=== PATIENT | female | born 1990 | race African-American/Black ===

== ENCOUNTER 2020-05-30 09:06 | Emergency (ER) | payer SELFPAY ==
--- NOTE | ~2020-05-30 | XR_ITS ---
EXAMINATION: XR chest 1V portable DATE: 05/30/2020 10:34 INDICATION: Fever. TECHNIQUE: A single frontal view of the chest was obtained. COMPARISON: None. FINDINGS: The chest demonstrates clear lungs without pneumonia, pleural effusion, or pneumothorax. Th e heart size is normal. There is an old healed fracture of left sixth rib. IMPRESSION: 1. No acute cardiopulmonary disease. Reviewed, dictated and finalized at location A.
[2020-05-30 09:21] VITALS: BP 102/71; PULSE 81; RESP 18; TEMP 37.2; O2SAT 100
[2020-05-30 09:28] VITALS: PULSE 81; RESP 18; O2SAT 100
--- NOTE | 2020-05-30 09:32 | PC.NURSE ---
Pt. care transferred to Lucian Hernandez pt.'s primary RN
[2020-05-30 10:12] VITALS: O2SAT 99
--- NOTE | 2020-05-30 11:15 | ED.FEVER ---
HPI - Fever General Chief Complaint: Fever <Zafar Suazo PA-C - Last Filed: 05/30/20 11:21> Stated Complaint: FEVERS, LACK OF TASTE <Zafar Suazo PA-C - Last Filed: 05/30/20 11:21> Time Seen by Provider: 05/30/20 10:03 <Zafar Suazo PA-C - Last Filed: 05/30/20 11:21> Source: patient <CHITO Sotelo Last Filed: 05/30/20 11:21> Mode of arrival: ambulatory <CHITO Sotelo Last Filed: 05/30/20 11:21> Limitations: no limitations <Zafar Suazo PA-C - Last Filed: 05/30/20 11:21> History of Present Illness HPI Narrative: Patient is a 30-year-old female who presents for evaluation of upper respiratory symptoms for the last several days noting that she was around an individual that had COVID. Patient notes dry cough subjective fever denies dyspnea vomiting diarrhea has tried [id number] medications with minimal improvement <Zafar Suazo PA-C - Last Filed: 05/30/20 11:21> Related Data Allergies/Adverse Reactions: Allergies Allergy/AdvReac Type Severity Reaction Status Date / Time No Known Allergies Allergy Unknown Verified 05/30/20 09:08 <Zafar Suazo PA-C - Last Filed: 05/30/20 11:21> Review of Systems Review of Systems: All systems reviewed & are unremarkable except as noted in HPI and below <Zafar Suazo PA-C - Last Filed: 05/30/20 11:21> [facility] Social History Social History: Social History (Updated 05/30/20 @ 11:17 by Zafar Suazo PA-C) Smoking status: Never smoker <Zafar Suazo PA-C - Last Filed: 05/30/20 11:21> Exam Narrative: Exam Narrative: GENERAL: Well-appearing, well-nourished, and in no acute distress. HEAD: Normocephalic, atraumatic. EYES: PERRLA and EOMI. ENT: Nares clear, no rhinorrhea or epistaxis. Mucous membranes moist. Oropharynx without tonsillar hypertrophy exudate or other lesions. NECK: Supple. No adenopathy or masses. CHEST: Clear to auscultation. No respiratory distress. No wheezes rales or rhonchi HEART: Regular rate and rhythm. No murmur heard. Normal peripheral pulses. ABDOMEN: Soft, nontender, nondistended EXTREMITIES: Normal range of motion. No edema. SKIN: Warm, dry, no rash. NEURO: No focal deficits. Alert and oriented x3. Cranial nerves II through XII grossly intact PSYCH: Normal mood and affect. <Zafar Suazo PA-C - Last Filed: 05/30/20 11:21> Course [employer]/PA Physician Supervision Patient aware of chest x-ray findings in the room in no distress no hypoxemia will be treated symptomatically advised to follow with primary care to discuss COVID testing to self quarantine until she has had this discussion will be given a work note to be off work until her primary care doctor has released her back. Patient given reasons to return <Zafar Suazo PA-C - Last Filed: 05/30/20 11:21> Vital Signs Vital signs: Vital Signs Temperature 98.9 F 05/30/20 09:21 Pulse Rate 81 05/30/20 09:21 Respiratory Rate 18 05/30/20 09:21 Blood Pressure 102/71 05/30/20 09:21 Pulse Oximetry 100 05/30/20 09:21 Temperature 98.9 F 05/30/20 09:21 Pulse Rate 62 05/30/20 11:19 Respiratory Rate 18 05/30/20 11:19 Blood Pressure 104/60 05/30/20 11:19 Pulse Oximetry 99 05/30/20 11:19 <Zafar Suazo PA-C - Last Filed: 05/30/20 11:21> Vital Signs Temperature 98.9 F 05/30/20 09:21 Pulse Rate 81 05/30/20 09:21 Respiratory Rate 18 05/30/20 09:21 Blood Pressure 102/71 05/30/20 09:21 Pulse Oximetry 100 05/30/20 09:21 Temperature 98.9 F 05/30/20 09:21 Pulse Rate 62 05/30/20 11:19 Respiratory Rate 18 05/30/20 11:19 Blood Pressure 104/60 05/30/20 11:19 Pulse Oximetry 99 05/30/20 11:19 <Zarina Beckham MD - Last Filed: 07/27/20 11:36> MDM - Fever MDM Narrative Medical decision making narrative: Patient with viral syndrome in the room in no distress. Advised to follow with primary care antoni
[2020-05-30 11:19] VITALS: BP 104/60; PULSE 62; RESP 18; O2SAT 99
== END 2020-05-30 11:34 | disposition home or self-care (01) ==
PROVIDERS: Emergency Provider Emergency Medicine
DX: B34.9 Viral infection, unspecified (principal); Z20.828 Contact with and (suspected) exposure to other viral communicable diseases
CPT/HCPCS: 71045; 99283

== ENCOUNTER 2022-06-24 19:14 | Emergency (ER) | payer BC, SELFPAY ==
[2022-06-24 19:32] VITALS: PULSE 70; RESP 20; TEMP 36.9; O2SAT 100
--- NOTE | 2022-06-24 19:46 | ED.ABDPAIN ---
HPI - Abdominal Pain General Chief Complaint: Abdominal Pain Stated Complaint: Abd pain, vomiting Time Seen by Provider: 06/24/22 19:43 History of Present Illness HPI narrative: 32-year-old female in severe abdominal distress presents to the emergency room for evaluation of abdominal pain that has been present for 3 days. Patient admits to feeling constipated, the pain is greater when she is bearing down. Patient admits to being flatulent. History of x1 . Denies fevers. Is associated with nausea and vomiting. Related Data Allergies Allergy/AdvReac Type Severity Reaction Status Date / Time No Known Allergies Allergy Unknown Verified 05/30/20 09:08 Review of Systems Review of Systems: CONSTITUTIONAL: Denies fever, chills, or sweats. EYES: Denies visual changes, redness, or discharge. ENT: Denies rhinorrhea, congestion, sore throat, or otalgia. CARDIOVASCULAR: Denies chest pain, palpitations, or edema. RESPIRATORY: Denies cough or dyspnea. GASTROINTESTINAL: Reports abdominal pain GENITOURINARY: Denies dysuria or hematuria. SKIN: Denies rash or itching. MUSCULOSKELETAL: Denies back pain, joint pain, or myalgia. NEUROLOGIC: Denies headache, numbness, dizziness, or weakness. PSYCHIATRIC: Denies anxiety or depression. [facility] Social History Social History (Updated 05/30/20 @ 11:17 by Zafar Suazo, PAClauC) Smoking status: Never smoker Exam Narrative: GENERAL: Well-appearing, well-nourished, no physical limitations, severe distress. HEAD: Normocephalic, atraumatic. EYES: Conjunctivae normal, PERRLA and EOMI. CHEST: Clear to auscultation. No respiratory distress. No wheezes rales or rhonchi. No tenderness. HEART: Regular rate and rhythm. No murmur heard. Normal peripheral pulses. ABDOMEN: Soft, diffuse tenderness, nondistended, normal active bowel sounds. BACK: No CVA tenderness EXTREMITIES: Normal range of motion. No edema. No clubbing or cyanosis SKIN: Warm, dry, no rash. No noted wounds NEURO: No focal deficits. Alert and oriented x3. MAEW. CN's II-XI intact bilaterally, normal gait PSYCH: Cooperative. Histrionic and tearful. Course Vital Signs Vital signs: Vital Signs Temperature 36.9 C 06/24/22 19:32 Pulse Rate 70 06/24/22 19:32 Respiratory Rate 20 06/24/22 19:32 Pulse Oximetry 100 06/24/22 19:32 Oxygen Delivery Room Air 06/24/22 19:32 Temperature 36.9 C 06/24/22 19:32 Pulse Rate 62 06/24/22 21:53 Respiratory Rate 14 06/24/22 21:53 Blood Pressure 105/61 06/24/22 21:53 Pulse Oximetry 100 06/24/22 21:53 Oxygen Delivery Room Air 06/24/22 19:32 MDM - Abdominal Pain MDM Narrative Medical decision making narrative: 32-year-old female presented with 3 days of lower abdominal pain associated with constipation. Patient was found to be . hCG showed that she is between 6 and 7 weeks. CBC was unremarkable, showed no signs of infection. Urinalysis showed no signs of UTI CMP is largely unremarkable. Patient was given a liter of fluid and some nausea medicine, and stated symptoms were resolving. Lab Data Result diagrams: 06/24/22 20:23 06/24/22 20:23 Labs: Lab Results 06/24/22 06/24/22 06/24/22 Range/Units 20:23 20:23 20:23 WBC 10.0 (4.5-10.0) K/mm3 RBC 5.37 (4.2-5.4) M/mm3 Hgb 12.2 (12.0-15.0) g/dL Hct 38.9 (37.0-47.0) % MCV 72.4 L (80-100) fl MCH 22.7 L (26-34) pg MCHC 31.4 L (32-36) g/dl RDW 14.8 H (11.5-14.5) % Plt Count 258 (150-375) k/mm3 MPV 10.5 H (7.4-10.4) fl Immature Gran % (Auto) 0.2 (0-0.5) % Neut % (Auto) 82.5 H (45.5-73.1) % Lymph % (Auto) 11.3 L (18.3-44.2) % [place] % (Auto) 5.6 (2.6-8.5) % Eos % (Auto) 0.1 (0-4.4) % Baso % (Auto) 0.3 (0.2-1.2) % Lymph # (Auto) 1.13 (0.9-3.2) K/mm3 [place] # (Auto) 0.6 (0.1-0.6) K/mm3 Eos # (Auto) 0.0 (0-0.3) K/mm3 Baso # (Auto) 0.0 (0.0-0.1) K/mm3 Abs Immat Gran (
[2022-06-24] MEDS: SODIUM CHLORIDE 0.9% IV 1,000 ML 999 ML IV CONT (20:22)
[2022-06-24] MEDS: ONDANSETRON INJ 4 MG/2 ML VIAL IV PUSH (20:22)
[2022-06-24 20:28] VITALS: BP 121/68; PULSE 52; RESP 16; O2SAT 100
[2022-06-24 20:35] LABS: Appearance Urine Slightly Cloudy (Clear); Basophils Percent Auto 0.3 % (0.2-1.2); Bilirubin Urine 1+ (Negative); Eosinophils Percent Auto 0.1 % (0-4.4); Glucose Urine UA Negative (Negative); Hematocrit 38.9 % (37.0-47.0); Hemoglobin 12.2 g/dL (12.0-15.0); Immature Granulocyte Absolute 0.02 K/mm3 (0.00-0.031); Immature Granulocyte Percent A 0.2 % (0-0.5); Immature Platelet Fraction Pct 2.4 % (0.9-11.2); Ketones Urine 4+ mg/dL (Negative); Leukocyte Esterase Ur Trace LEU/UL (Negative); Lymphocytes Absolute Auto 1.13 K/mm3 (0.9-3.2); Lymphocytes Percent Auto 11.3 % (18.3-44.2); Mean Corpuscular HGB Conc 31.4 g/dl (32-36); Mean Corpuscular Hemoglobin 22.7 pg (26-34); Mean Corpuscular Volume 72.4 fl (80-100); Mean Platelet Volume 10.5 fl (7.4-10.4); Monocytes Absolute Auto 0.6 K/mm3 (0.1-0.6); Monocytes Percent Auto 5.6 % (2.6-8.5); Neutrophils Absolute Auto 8.2 K/mm3 (1.3-6.7); Neutrophils Percent Auto 82.5 % (45.5-73.1); Nitrate Urine Negative (Negative); Platelet Count Result 258 k/mm3 (150-375); Protein Urine 1+ mg/dL (Negative); Red Blood Count 5.37 M/mm3 (4.2-5.4); Red Cell Distribution Width 14.8 % (11.5-14.5); Specific Grav Ur >= 1.030 (1.001-1.035); Urobilinogen Urine 0.2 mg/dL (<2.0)
[2022-06-24 20:41] LABS: Add Urine Microscopic? YES; Bacteria Urine 2+ /hpf; Blood Urine Trace (Negative); Color Urine Dark Yellow (Yellow); Mucus Urine Moderate /lpf; Squamous Epithelial Cell Urine Few /hpf (Few)
[2022-06-24 20:44] LABS: Potassium 3.7 mmol/L (3.4-5.0)
[2022-06-24 20:45] LABS: Alanine Aminotransferase 14 U/L (6-35); Albumin Level 4.4 g/dL (3.5-5.1); Alkaline Phosphatase 87 U/L (38-126); Anion Gap 12 mmol/L (8-16); Aspartate Amino Transferase 26 U/L (14-36); Bilirubin,Total 1.1 mg/dL (0.2-1.3); Blood Urea Nitrogen 9 mg/dL (7-17); Calcium 9.4 mg/dL (8.4-10.2); Carbon Dioxide 20 mmol/L (22-30); Chloride 102 mmol/L (98-107); Estimated CRCL calculation 96 ml/min; Estimated Glomerular Filt Rate > 60; Glucose 91 mg/dL (65-110); Lipase 64 U/L (23-300); Sodium 134 mmol/L (137-145)
[2022-06-24 20:49] LABS: Platelet Estimate Adequate (Adequate)
[2022-06-24 20:50] LABS: Anisocytosis 1+ (NORMAL); Ovalocytes 1+ (NORMAL)
[2022-06-24 21:53] VITALS: BP 105/61; PULSE 62; RESP 14; O2SAT 100
== END 2022-06-24 22:20 | disposition home or self-care (01) ==
PROVIDERS: Emergency Provider Nurse Practitioner Family
DX: R10.9 Unspecified abdominal pain (principal); O26.90 Pregnancy related conditions, unspecified, unspecified trimester
CPT/HCPCS: 36415; 80053; 81001; 81025; 83690; 84702; 85025; 85055; 87086; 87088; 96361; 96374; 99284; J2405; J7030

== ENCOUNTER 2022-06-25 10:48 | Inpatient (IN) | payer BC, SELFPAY ==
[2022-06-25] VITALS (8 sets, daily range): BP systolic 85–130; BP diastolic 55–71; PULSE 57–72; RESP 18–20; TEMP 37.1–37.3; O2SAT 100; BMI 22.6
--- NOTE | ~2022-06-25 | XR_ITS ---
EXAMINATION: XR abdomen/kub 1V DATE: 06/27/2022 13:39 INDICATION: Abdominal pain. TECHNIQUE: A supine view of the abdomen on 2 radiographs was obtained. COMPARISON: None. FINDINGS: There are no dilated loops of bowel. There is a paucity of gas in the bowel. IMPRESSION: 1. Normal bowel gas pattern. Reviewed, dictated and finalized at location A.
--- NOTE | ~2022-06-25 | US_ITS ---
US right upper quadrant INDICATION: Imtiaz pain. Nausea and vomiting. PROCEDURE: Realtime right upper abdominal ultrasound. COMPARISON: No prior studies for comparison. FINDINGS: The pancreas is normal without focal mass or pancreatic ductal dilation. Liver echotexture is normal without focal mass or intrahepatic biliary dilatation. There is normal directional flow i n the portal vein. The gallbladder is normal without stones, gallbladder wall thickening or pericholecystic fluid. Comm on bile duct measures 2 mm. No sonographic Eller's sign. IMPRESSION: 1: Normal limited abdominal ultrasound. Reviewed, dictated and finalized at location A.
--- NOTE | ~2022-06-25 | US_ITS ---
EXAMINATION: US OB <=14 wk fetus w TV DATE: 06/25/2022 12:31 INDICATION: Abdominal pain during first trimester TECHNIQUE: Real-time pelvic transabdominal ultrasound was performed. COMPARISON: None. FINDINGS: The uterus measures 8.8 x 5.2 x 5.9 cm. There is an intrauterine gestational sac. A yolk s ac is identified. The pole is not definitely seen. The mean sac diameter measures 1.3 cm, which correlates with an estimated gestational age of 6 weeks and 1 day(s) (+/-) 4 day(s). The right ovary measures 2.1 x 0.9 x 1.5 cm. The left ovary measures 3.1 x 1.7 x 2.3 cm. There is nor mal vascular flow in the ovaries. There is no free fluid in the pelvis. IMPRESSION: 1. Intrauterine gestational sac with an estimated gestational age of 6 weeks and 1 day(s) (+/-) 4 day (s) and an estimated delivery date of 02/17/2023 based on mean sac diameter. pole not visualized which could be due to early . Reviewed, dictated and finalized at location B. IMPRESSION: 1. Intrauterine gestational sac with an estimated gestational age of 6 weeks an d 1 day(s) (+/-) 4 day(s) and an estimated delivery date of 02/17/2023 based on mean sac diameter. pole not visualized which could be due to early pregna ncy.
[2022-06-25] MEDS: SODIUM CHLORIDE 0.9% IV 1,000 ML 999 ML IV CONT ×2 (11:45→13:22)
[2022-06-25] MEDS: FAMOTIDINE 20 MG/2 ML VIAL IV PUSH ×2 (11:46→21:56)
[2022-06-25 11:50] LABS: Basophils Percent Auto 0.1 % (0.2-1.2); Eosinophils Percent Auto 0.1 % (0-4.4); Hematocrit 38.6 % (37.0-47.0); Hemoglobin 12.1 g/dL (12.0-15.0); Immature Granulocyte Absolute 0.03 K/mm3 (0.00-0.031); Immature Granulocyte Percent A 0.3 % (0-0.5); Lymphocytes Absolute Auto 0.99 K/mm3 (0.9-3.2); Mean Corpuscular HGB Conc 31.3 g/dl (32-36); Mean Corpuscular Hemoglobin 23.1 pg (26-34); Mean Corpuscular Volume 73.7 fl (80-100); Mean Platelet Volume 9.9 fl (7.4-10.4); Monocytes Absolute Auto 0.4 K/mm3 (0.1-0.6); Monocytes Percent Auto 3.8 % (2.6-8.5); Neutrophils Absolute Auto 9.5 K/mm3 (1.3-6.7); Neutrophils Percent Auto 86.7 % (45.5-73.1); Platelet Count Result 265 k/mm3 (150-375); Red Blood Count 5.24 M/mm3 (4.2-5.4); Red Cell Distribution Width 14.8 % (11.5-14.5)
[2022-06-25] MEDS: PROMETHAZINE HCL 25 MG/ML AMPUL 12.5 MG IV PUSH ×2 (11:59→18:08)
[2022-06-25 12:00] LABS: Alanine Aminotransferase 20 U/L (6-35); Albumin Level 4.7 g/dL (3.5-5.1); Alkaline Phosphatase 86 U/L (38-126); Anion Gap 16 mmol/L (8-16); Anisocytosis 1+ (NORMAL); Aspartate Amino Transferase 32 U/L (14-36); Bilirubin,Total 1.3 mg/dL (0.2-1.3); Blood Urea Nitrogen 8 mg/dL (7-17); Calcium 8.6 mg/dL (8.4-10.2); Carbon Dioxide 17 mmol/L (22-30); Chloride 103 mmol/L (98-107); Estimated CRCL calculation 96 ml/min; Estimated Glomerular Filt Rate > 60; Glucose 129 mg/dL (65-110); Lipase 69 U/L (23-300); Ovalocytes 1+ (NORMAL); Platelet Estimate Adequate (Adequate); Potassium 3.1 mmol/L (3.4-5.0); Sodium 136 mmol/L (137-145)
[2022-06-25 12:01] LABS: Alanine Aminotransferase 22 U/L (6-35); Albumin Level 4.6 g/dL (3.5-5.1); Alkaline Phosphatase 84 U/L (38-126); Anion Gap 16 mmol/L (8-16); Aspartate Amino Transferase 30 U/L (14-36); Bilirubin,Total 1.3 mg/dL (0.2-1.3); Blood Urea Nitrogen 8 mg/dL (7-17); Calcium 8.8 mg/dL (8.4-10.2); Carbon Dioxide 15 mmol/L (22-30); Chloride 104 mmol/L (98-107); Estimated CRCL calculation 96 ml/min; Estimated Glomerular Filt Rate > 60; Glucose 129 mg/dL (65-110); Magnesium 1.7 mg/dL (1.6-2.3); Potassium 3.1 mmol/L (3.4-5.0); Sodium 135 mmol/L (137-145)
[2022-06-25] MEDS: ONDANSETRON INJ 4 MG/2 ML VIAL IV PUSH ×2 (13:24→21:44)
--- NOTE | 2022-06-25 13:25 | ED.GENADULT ---
HPI - General Adult General Chief complaint: Nausea/Vomiting/Diarrhea Stated complaint: vomiting x days Time Seen by Provider: 06/25/22 11:09 Source: RN notes reviewed History of Present Illness HPI narrative: Patient presents emergency department from home for nausea and vomiting. Patient states symptoms began approximately 1 day ago states she has been having numerous episodes of nausea and vomiting has been unable to keep anything down patient states has been associate with abdominal pain that is described as cramping and diffuse throughout the abdomen she denies any fevers or chills chest pain or shortness of breath patient was seen in the emergency department last night was found to be and was prescribed Zofran and discharged at that time which she states that has not been helping. Patient does believe she questionably had a syncopal episode while vomiting earlier today states she had felt lightheaded and had to lay down on the ground unsure if she fully passed out or not she denies any chest pain or shortness of Related Data Allergies Allergy/AdvReac Type Severity Reaction Status Date / Time No Known Allergies Allergy Unknown Verified 05/30/20 09:08 Review of Systems Review of Systems: Gen.: Denies fevers or chills ENT: Denies congestion Respiratory: Denies shortness of breath or cough CV: Denies chest pain or palpitations GI: See HPI reports Musculoskeletal: Denies back pain or muscle pain Neuro: Denies numbness, tingling, weakness or focal weakness Skin: Denies rash Except as documented, all other systems reviewed and negative [facility] Past Medical History Medical History (Updated 06/25/22 @ 14:31 by Nato Fisher DO) Patient denies significant medical history Social History Social History Smoking status: Never smoker Exam Narrative: APPEARANCE: Mild distress in bed patient with dry heaves EYES: EOMI HEENT: Normocephalic, atraumatic, OMM RESPIRATORY: No respiratory distress Clear to auscultation bilaterally with no rhonchi wheezing or rales. CARDIOVASCULAR: Regular rate and rhythm without murmurs rubs or gallops. ABDOMINAL: Soft, nondistended diffusely tender to palpation no rebound or guard MUSCULOSKELETAl: Moves all extremities. No clubbing, cyanosis or edema. NEURO: Awake and alert. Following commands, speech normal, no focal deficits SKIN:: Warm, dry. No rashes lesions or abrasions PSYCHIATRIC: Normal affect/mood, Course Course Emergency Course: Discussed Dr. Paris presentation work-up agrees with admission at this time Discussed with patient and family results of workup and diagnosis. Discussed need for admission. Patient and family understand and agree to current treatment plan Vital Signs Vital signs: Vital Signs Temperature 98.9 F 06/25/22 10:51 Pulse Rate 66 06/25/22 10:51 Respiratory Rate 18 06/25/22 10:51 Blood Pressure 130/63 06/25/22 10:51 Pulse Oximetry 100 06/25/22 10:51 Oxygen Delivery Room Air 06/25/22 10:51 Temperature 98.9 F 06/25/22 10:51 Pulse Rate 66 06/25/22 10:51 Respiratory Rate 18 06/25/22 10:51 Blood Pressure 130/63 06/25/22 10:51 Pulse Oximetry 100 06/25/22 10:51 Oxygen Delivery Room Air 06/25/22 10:51 Medical Decision Making Vital Signs Vital Signs: Vital Signs Temperature 98.9 F 06/25/22 10:51 Pulse Rate 66 06/25/22 10:51 Respiratory Rate 18 06/25/22 10:51 Blood Pressure 130/63 06/25/22 10:51 Pulse Oximetry 100 06/25/22 10:51 Oxygen Delivery Room Air 06/25/22 10:51 Temperature 98.9 F 06/25/22 10:51 Pulse Rate 66 06/25/22 10:51 Respiratory Rate 18 06/25/22 10:51 Blood Pressure 130/63 06/25/22 10:51 Pulse Oximetry 100 06/25/22 10:51 Oxygen Delivery Room Air 06/25/22 10:51 Lab Data Result diagrams: 06/25/22 11:38 06/25/22 11:38 Labs: Lab Results 06/25/22
--- NOTE | 2022-06-25 13:26 | ECG_ITS ---
Measurements Intervals Burns Rate: 66 P: 78 IL: 147 QRS: 51 QRSD: 92 T: 47 QT: 413 QTc: 433 Interpretive Statements SINUS RHYTHM INCOMPLETE RIGHT BUNDLE BRANCH BLOCK Electronically Signed On 06-26-2022 12:39:10 CDT by Paul Lopes M.D.
[2022-06-25] MEDS: POTASSIUM CHLORIDE INJ 40 MEQ in SODIUM CHLORIDE 0.9% IV 500 ML 130 MEQ IVPB (13:31)
[2022-06-25 14:19] LABS: Appearance Urine Clear (Clear); Bilirubin Urine Negative (Negative); Blood Urine Negative (Negative); Color Urine Yellow (Yellow); Glucose Urine UA Negative (Negative); Ketones Urine 4+ mg/dL (Negative); Leukocyte Esterase Ur Negative LEU/UL (Negative); Nitrate Urine Negative (Negative); Protein Urine Negative (Negative); Specific Grav Ur 1.025 (1.001-1.035); Urobilinogen Urine 0.2 mg/dL (<2.0); pH Urine 5.5 (5.0-9.0)
[2022-06-25 14:29] LABS: Add Urine Microscopic? YES; Bacteria Urine Trace /hpf; Mucus Urine Rare /lpf; RBC Urine 0-2 /hpf (0-2); Squamous Epithelial Cell Urine Rare /hpf (Few)
[2022-06-25] MEDS: fentaNYL CITRATE INJ (*CRX) 100 MCG/2 ML VIAL 50 MCG IV PUSH ×2 (15:42→22:56)
--- NOTE | 2022-06-25 16:14 | OBADM ---
This patient, Belem Fink, admitted to the OB room OB Post 112 for observation. Patient/family oriented to hospital policies and general routines including ID bracelet, bed and alarms, visiting hours, pain management, procedures, bathroom and other care routines, personal items, smoking policy, room service/diet, and visiting hours. Patient/Family are encouraged to report perceived risks to care and to ask questions if they do not understand what they are told or what they should do.
--- NOTE | 2022-06-25 18:36 | PC.NURSE ---
Report given to Renu WEBB
[2022-06-25 18:56] LABS: Amphetamine Screen Urine Negative (Negative); Barbiturate Screen Urine Negative (Negative); Benzodiazepines Screen Urine Negative (Negative); Cannabinoid Screen Urine Positive (Negative); Cocaine Screen Urine Negative (Negative); Methadone Screen Urine Negative (Negative); Opiate Screen Urine Negative (Negative); Phencyclidine Screen Urine Negative (Negative)
[2022-06-25] MEDS: diphenhydrAMINE HCl INJ 50 MG/ML VIAL 25 MG IV PUSH (19:07)
--- NOTE | 2022-06-25 20:26 | PC.NURSE ---
called Chau Long CNM reported pt called out vomiting blood. RN at bedside observed pink blood contained mucus noted in emesis bag. continue to observe.
[2022-06-26] MEDS: LACTATED RINGERS 1,000 ML 200 ML IV CONT (00:17)
[2022-06-26] MEDS: PROMETHAZINE HCL 25 MG/ML AMPUL 12.5 MG IV PUSH ×4 (00:21→22:09)
[2022-06-26] MEDS: LACTATED RINGERS 1,000 ML 125 ML IV CONT (05:38)
[2022-06-26] MEDS: ONDANSETRON INJ 4 MG/2 ML VIAL IV PUSH ×3 (05:43→20:40)
--- NOTE | 2022-06-26 07:03 | PM.IMHP ---
H&P: HPI History of Present Illness Date/Time: 06/26/22 07:03 Chief Complaint: nausea and vomiting. Pt discovered she was 2 days ago. Pt has received IV fluids and antiemetics overnight. Pt given potassium IV. pt currently resting comfortably and able to tolerate ice chips PMFSH Past Medical History Medical History (Updated 06/25/22 @ 14:31 by Nato Fisher DO) Patient denies significant medical history Social History Social History Smoking status: Never smoker Meds Home Medications and Allergies Allergies Allergy/AdvReac Type Severity Reaction Status Date / Time No Known Allergies Allergy Unknown Verified 06/25/22 15:20 Vital Signs Vital Signs - 24 hr 06/25/22 10:51 06/25/22 14:56 06/25/22 14:56 Temperature 37.2 C Pulse Rate 66 67 67 Respiratory Rate 18 20 20 Blood Pressure 130/63 120/56 L 120/56 L Pulse Oximetry 100 100 100 Oxygen Delivery Room Air 06/25/22 15:42 06/25/22 15:45 06/25/22 16:01 Temperature Pulse Rate 58 L 57 L 63 Respiratory Rate Blood Pressure 85/62 L 120/71 113/57 L Pulse Oximetry Oxygen Delivery 06/25/22 22:50 06/25/22 22:52 06/25/22 16:10 Temperature 37.3 C 37.1 C Pulse Rate 72 Respiratory Rate Blood Pressure 120/55 L Pulse Oximetry Oxygen Delivery Exam Const: General: healthy appearing, comfortable and other (pt sleeping) H&P: Results Labs Labs: Short CBC 06/25/22 06/25/22 Range/Units 11:38 11:38 WBC 11.0 H Cancelled (4.5-10.0) K/mm3 Hgb 12.1 Cancelled (12.0-15.0) g/dL Hct 38.6 Cancelled (37.0-47.0) % Plt Count 265 Cancelled (150-375) k/mm3 BMP 06/25/22 06/25/22 11:38 11:38 Sodium 136 L 135 L Potassium 3.1 L 3.1 L Chloride 103 104 Carbon Dioxide 17 L 15 L BUN 8 8 Creatinine 0.60 L 0.60 L Glucose 129 H 129 H Calcium 8.6 8.8 Liver Function 06/25/22 06/25/22 Range/Units 11:38 11:38 Total Bilirubin 1.3 1.3 (0.2-1.3) mg/dL AST 32 30 (14-36) U/L ALT 20 22 (6-35) U/L Alkaline Phosphatase 86 84 (38-126) U/L Albumin 4.7 4.6 (3.5-5.1) g/dL Urine 06/25/22 Range/Units 14:06 Urine Color Yellow (Yellow) Urine Appearance Clear (Clear) Urine pH 5.5 (5.0-9.0) Ur Specific [place] 1.025 (1.001-1.035) Urine Protein Negative (Negative) mg/dL Urine Glucose (UA) Negative (Negative) mg/dL Assessment and Plan Assessment and plan (1) Hyperemesis gravidarum: Code(s): O21.0 - Mild hyperemesis gravidarum Status: Acute Plan at 6 weeks gestation with nausea and vomiting repeat CMP, encourage IV fluids plan d/c home and appt with ob provider
--- NOTE | 2022-06-26 07:13 | PM.OBTRLD ---
OB - Triage/Final Diagnosis Visit Information Date of evaluation: 06/26/22 Reason for evaluation: other (nausea and vomiting) Comments/Additional reasons for admission: I have assessed the risk for this patient, Belem Fink, and determined that she would benefit from observation care. Evaluation Laboratory results: Laboratory Tests 06/25/22 06/25/22 06/25/22 11:38 11:38 11:38 WBC 11.0 H Cancelled RBC 5.24 Cancelled Hgb 12.1 Cancelled Hct 38.6 Cancelled MCV 73.7 L Cancelled MCH 23.1 L Cancelled MCHC 31.3 L Cancelled RDW 14.8 H Cancelled Plt Count 265 Cancelled MPV 9.9 Cancelled Immature Gran % (Auto) 0.3 Cancelled Neut % (Auto) 86.7 H Cancelled Lymph % (Auto) 9.0 L Cancelled [place] % (Auto) 3.8 Cancelled Eos % (Auto) 0.1 Cancelled Baso % (Auto) 0.1 L Cancelled Lymph # (Auto) 0.99 Cancelled [place] # (Auto) 0.4 Cancelled Eos # (Auto) 0.0 Cancelled Baso # (Auto) 0.0 Cancelled Abs Immat Gran (auto) 0.03 Cancelled Absolute Neuts (auto) 9.5 H Cancelled Absolute Nucleated RBC 0.0 Cancelled Nucleated RBC % 0.0 Cancelled Platelet Estimate Adequate % Immature Plt Fraction Cancelled Anisocytosis 1+ Ovalocytes 1+ Sodium 136 L Potassium 3.1 L Chloride 103 Carbon Dioxide 17 L Anion Gap 16 BUN 8 Creatinine 0.60 L Estim Creat Clear Calc 96 Estimated GFR > 60 Glucose 129 H Calcium 8.6 Magnesium Total Bilirubin 1.3 AST 32 ALT 20 Alkaline Phosphatase 86 Total Protein 8.0 Albumin 4.7 Lipase 69 Beta HCG, Quant Urine Color Urine Appearance Urine pH Ur Specific [place] Urine Protein Urine Glucose (UA) Urine Ketones Ur Blood (Man) Urine Nitrate Urine Bilirubin Urine Urobilinogen Leukocyte Esterase Rfl Urine RBC Urine WBC Ur Squamous Epith Cells Urine Bacteria Urine Mucus Urine Opiates Screen Urine Methadone Screen Ur Barbiturates Screen Ur Phencyclidine Scrn Ur Amphetamine Screen U Benzodiazepines Scrn Urine Cocaine Screen U Cannabinoids Screen 06/25/22 06/25/22 06/25/22 11:38 14:06 14:08 WBC RBC Hgb Hct MCV MCH MCHC RDW Plt Count MPV Immature Gran % (Auto) Neut % (Auto) Lymph % (Auto) [place] % (Auto) Eos % (Auto) Baso % (Auto) Lymph # (Auto) [place] # (Auto) Eos # (Auto) Baso # (Auto) Abs Immat Gran (auto) Absolute Neuts (auto) Absolute Nucleated RBC Nucleated RBC % Platelet Estimate % Immature Plt Fraction Anisocytosis Ovalocytes Sodium 135 L Potassium 3.1 L Chloride 104 Carbon Dioxide 15 L Anion Gap 16 BUN 8 Creatinine 0.60 L Estim Creat Clear Calc 96 Estimated GFR > 60 Glucose 129 H Calcium 8.8 Magnesium 1.7 Total Bilirubin 1.3 AST 30 ALT 22 Alkaline Phosphatase 84 Total Protein 8.0 Albumin 4.6 Lipase Beta HCG, Quant 01641.00 Urine Color Yellow Urine Appearance Clear Urine pH 5.5 Ur Specific [place] 1.025 Urine Protein Negative Urine Glucose (UA) Negative Urine Ketones 4+ H Ur Blood (Man) Negative Urine Nitrate Negative Urine Bilirubin Negative Urine Urobilinogen 0.2 Leukocyte Esterase Rfl Negative Urine RBC 0-2 Urine WBC 4-6 H Ur Squamous Epith Cells Rare Urine Bacteria Trace Urine Mucus Rare Urine Opiates Screen Negative Urine Methadone Screen Negative Ur Barbiturates Screen Negative Ur Phencyclidine Scrn Negative Ur Amphetamine Screen Negative U Benzodiazepines Scrn Negative Urine Cocaine Screen Negative U Cannabinoids Screen Positive A Vital signs: Vital Signs - 24 hr 06/25/22 10:51 06/25/22 14:56 06/25/22 14:56 Temperature 37.2 C Pulse Rate 66 67 67 Respiratory Rate 18 20 20 Blood Pressure 130/63 120/56 L 120/56 L Pulse Oxi
[2022-06-26] MEDS: FAMOTIDINE 20 MG/2 ML VIAL IV PUSH ×2 (09:16→21:00)
[2022-06-26 09:23] VITALS: TEMP 37.6
[2022-06-26 09:24] VITALS: BP 111/59; PULSE 73
[2022-06-26 10:06] LABS: Alanine Aminotransferase 11 U/L (6-35); Albumin Level 3.2 g/dL (3.5-5.1); Alkaline Phosphatase 55 U/L (38-126); Anion Gap 6 mmol/L (8-16); Aspartate Amino Transferase 19 U/L (14-36); Bilirubin,Total 0.9 mg/dL (0.2-1.3); Blood Urea Nitrogen 5 mg/dL (7-17); Calcium 7.9 mg/dL (8.4-10.2); Carbon Dioxide 23 mmol/L (22-30); Chloride 106 mmol/L (98-107); Estimated CRCL calculation 96 ml/min; Estimated Glomerular Filt Rate > 60; Glucose 89 mg/dL (65-110); Potassium 3.5 mmol/L (3.4-5.0); Sodium 135 mmol/L (137-145)
[2022-06-26] MEDS: diphenhydrAMINE HCl INJ 50 MG/ML VIAL 25 MG IV PUSH ×2 (11:31→21:19)
[2022-06-26 11:34] VITALS: BP 125/67; PULSE 79; TEMP 37.4
[2022-06-26] MEDS: NITROFURANTOIN MONOHYD MACROCR 100 MG CAP PO (13:52)
[2022-06-26] MEDS: DEXTROSE 5%/0.45% SOD CHL 1,000 ML 200 ML IV CONT ×2 (16:01→21:22)
[2022-06-26 16:05] VITALS: BP 111/59; PULSE 59
[2022-06-26 16:06] VITALS: TEMP 37.7
[2022-06-26 20:41] VITALS: BP 112/74; PULSE 69
--- NOTE | 2022-06-26 21:29 | PC.NURSE ---
Pt complains of abdominal pain and restless. called Dr. Bender reported pt's complains. order received for Dicyclomine IM
[2022-06-26] MEDS: DICYCLOMINE HCL INJ 20 MG/2 ML VIAL IM (21:48)
[2022-06-27] MEDS: ONDANSETRON INJ 4 MG/2 ML VIAL IV PUSH (00:40)
[2022-06-27] MEDS: PROMETHAZINE HCL 25 MG/ML AMPUL 12.5 MG IV PUSH ×3 (02:00→14:13)
[2022-06-27] MEDS: diphenhydrAMINE HCl INJ 50 MG/ML VIAL 25 MG IV PUSH ×3 (03:40→14:12)
[2022-06-27] MEDS: DEXTROSE 5%/0.45% SOD CHL 1,000 ML 200 ML IV CONT (03:42)
--- NOTE | 2022-06-27 04:20 | PC.NURSE ---
called Dr. Bender notified pt has been vomiting all night regardless available medications. Also reported complains of abdominal pain and has not slept all night. Order received to increase zofran dose to 8mg Q6 hours. No plan for additional pain medication at this time
[2022-06-27] MEDS: ONDANSETRON INJ 4 MG/2 ML VIAL 8 MG IV PUSH ×2 (04:40→11:22)
[2022-06-27 04:43] LABS: Hematocrit 34.7 % (37.0-47.0); Hemoglobin 11.2 g/dL (12.0-15.0); Mean Corpuscular HGB Conc 32.3 g/dl (32-36); Mean Corpuscular Hemoglobin 23.1 pg (26-34); Mean Corpuscular Volume 71.5 fl (80-100); Mean Platelet Volume 10.5 fl (7.4-10.4); Platelet Count Result 258 k/mm3 (150-375); Red Blood Count 4.85 M/mm3 (4.2-5.4); Red Cell Distribution Width 14.3 % (11.5-14.5); White Blood Count 10.6 K/mm3 (4.5-10.0)
[2022-06-27 04:56] LABS: Alanine Aminotransferase 18 U/L (6-35); Albumin Level 3.9 g/dL (3.5-5.1); Alkaline Phosphatase 68 U/L (38-126); Anion Gap 11 mmol/L (8-16); Aspartate Amino Transferase 40 U/L (14-36); Bilirubin,Total 0.6 mg/dL (0.2-1.3); Blood Urea Nitrogen 2 mg/dL (7-17); Calcium 8.2 mg/dL (8.4-10.2); Carbon Dioxide 22 mmol/L (22-30); Chloride 99 mmol/L (98-107); Estimated CRCL calculation 96 ml/min; Estimated Glomerular Filt Rate > 60; Glucose 134 mg/dL (65-110); Potassium 2.8 mmol/L (3.4-5.0); Sodium 132 mmol/L (137-145)
[2022-06-27 05:00] VITALS: BP 105/68; PULSE 85; RESP 22; TEMP 37.4
[2022-06-27] MEDS: POTASSIUM CHLORIDE INJ 40 MEQ in SODIUM CHLORIDE 0.9% IV 500 ML 130 MEQ IV CONT (06:41)
[2022-06-27 06:59] VITALS: BP 126/74; PULSE 70
[2022-06-27 07:00] VITALS: RESP 16; TEMP 37
--- NOTE | 2022-06-27 07:12 | PM.OBPNVD ---
OB - PN: Subj Subjective Date/time seen: 06/27/22 07:12 Interval history: HD 2 for intractable N/V, presumed hyperemesis. UOP great, replacing K, NPO, multiple antiemetics, pepcid, and still constant vomiting. Pt reports constant generalized abdominal pain. tried dicyclomine IM, no relief. pt requesting stronger pain meds. OB - PN: Obj Data Labs CBC & Chem 7: 06/27/22 04:37 06/27/22 04:37 Labs: Laboratory Results - last 24 hr 06/26/22 06/27/22 06/27/22 09:18 04:37 04:37 WBC 10.6 H RBC 4.85 Hgb 11.2 L Hct 34.7 L MCV 71.5 L MCH 23.1 L MCHC 32.3 RDW 14.3 Plt Count 258 MPV 10.5 H Sodium 135 L 132 L Potassium 3.5 2.8 L* Chloride 106 99 Carbon Dioxide 23 22 Anion Gap 6 L 11 BUN 5 L 2 L Creatinine 0.60 L 0.60 L Estim Creat Clear Calc 96 96 Estimated GFR > 60 > 60 Glucose 89 134 H Calcium 7.9 L 8.2 L Total Bilirubin 0.9 0.6 AST 19 40 H ALT 11 18 Alkaline Phosphatase 55 68 Total Protein 6.0 L 7.0 Albumin 3.2 L 3.9 OB - PN A/P Assessment and Plan (1) Hyperemesis gravidarum: Code(s): O21.0 - Mild hyperemesis gravidarum Status: Acute (2) Hypokalemia: Code(s): E87.6 - Hypokalemia Status: Acute (3) Abdominal pain, generalized: Code(s): R10.84 - Generalized abdominal pain Status: Acute Plan intractable N/V/abdominal pain- GI consult, RUQ US. failed dicyclomine. on multiple antiemetics and pepcid. npo. consider NG tube. consider transfer to medical floor. consider narcotic seeking behavior, though true N/V with electrolyte abnormalities. replacing K. repeat lytes at 1600. TSH then also. Time Spent With Patient Time: Total time spent is greater than 50% in coordination of care (as documented) at patient's floor/unit and/or counseling patient: Exam Narrative: Pt moaning in bed writhing, naked not actively vomiting appears uncomfortable, but does stop when pain medications mentioned abdomen soft, moderately tender, no rebound or guarding
--- NOTE | 2022-06-27 07:37 | PC.NURSE ---
0700--Dr. Bender at bedside to assess pt and discuss plan of care.
--- NOTE | 2022-06-27 07:42 | PC.NURSE ---
0721--Dr. Barrett informed of consult. Will see pt today.
--- NOTE | 2022-06-27 08:00 | PC.NURSE ---
0850--To US per wheelchair.
[2022-06-27] MEDS: FAMOTIDINE 20 MG/2 ML VIAL IV PUSH (09:06)
--- NOTE | 2022-06-27 09:28 | PC.NURSE ---
0840--Pt reports some relief with ice bag to abdomen.
[2022-06-27 10:38] VITALS: TEMP 37
--- NOTE | 2022-06-27 11:11 | PC.NURSE ---
1015--D. Counts from IV access at bedside to restart IV.
--- NOTE | 2022-06-27 11:16 | WPDGICN ---
Assessment and Plan Assessment and plan (1) Hyperemesis gravidarum: Code(s): O21.0 - Mild hyperemesis gravidarum Status: Acute Assessment and Plan: she is on Zofran and promethazine for that (2) Abdominal pain, generalized: Code(s): R10.84 - Generalized abdominal pain Status: Acute Assessment and Plan: She is mostly tender in the lower abdomen. I suspect that she has some sort of colitis. I will check a lactic acid level to make sure that she does not have ischemic bowel issues but that would be rare at her age. because of her , we are limited in terms of imaging studies. Perhaps ultrasound of the pelvis would be beneficial as most of her pain is infraumbilical and suprapubic (3) Marijuana user: Code(s): F12.90 - Cannabis use, unspecified, uncomplicated Status: Acute Assessment and Plan: her symptoms could be due to cannabinoid syndrome, although I think her pain is too localized to the lower abdomen. nevertheless, nausea, vomiting, and abdominal pain are the typical features of regular marijuana use (4) Change in bowel habits: Code(s): R19.4 - Change in bowel habit Status: Acute Assessment and Plan: Her stools have been very soft and narrow this week. She has had frequent bowel movements but has not had blood in her stools. I will send stools for fecal leukocytes as well as for cultures. GI Consult Note Consult date/time: 06/27/22 11:16 HPI: Belem Fink is a 32 year old female who recently if found out that she was 8 weeks . She states that began having nausea and vomiting about 3 days ago. The night before last she developed pain in her lower abdomen. It is constant and cramping. Her stools have been softer but she has not seen blood. She has not had a fever. She had not been traveling. She uses occasional anti-inflammatory medications such as Aleve or ibuprofen. She was smoking marijuana almost every day but stopped when she became ill 2 days ago. She has no history of prior gastrointestinal problems were recalls that 1 time she was given a suppository for bowel problems. She is not aware of a family history of inflammatory bowel disease or other digestive problems. [facility] Past Medical History Medical History (Updated 06/27/22 @ 11:21 by Ryne Barrett MD) Patient denies significant medical history Social History Social History Smoking status: Never smoker Meds Home Medications and Allergies Allergies Allergy/AdvReac Type Severity Reaction Status Date / Time No Known Allergies Allergy Unknown Verified 06/25/22 15:20 Vital Signs Vital Signs - 24 hr 06/26/22 11:34 06/26/22 16:05 06/26/22 20:41 Temperature Pulse Rate 79 59 L 69 Respiratory Rate Blood Pressure 125/67 111/59 L 112/74 Oxygen Delivery 06/27/22 06:59 06/26/22 11:34 06/26/22 16:06 Temperature 37.4 C 37.7 C H Pulse Rate 70 Respiratory Rate Blood Pressure 126/74 Oxygen Delivery 06/26/22 21:00 06/27/22 05:00 06/27/22 07:00 Temperature 37.4 C 37.0 C Pulse Rate 85 Respiratory Rate 22 H 16 Blood Pressure 105/68 Oxygen Delivery Room Air 06/27/22 10:38 Temperature 37.0 C Pulse Rate Respiratory Rate Blood Pressure Oxygen Delivery Results Labs CBC & Chem 7: 06/27/22 04:37 06/27/22 04:37 Labs: Short CBC 06/27/22 Range/Units 04:37 WBC 10.6 H (4.5-10.0) K/mm3 Hgb 11.2 L (12.0-15.0) g/dL Hct 34.7 L (37.0-47.0) % Plt Count 258 (150-375) k/mm3 BMP 06/27/22 04:37 Sodium 132 L Potassium 2.8 L* Chloride 99 Carbon Dioxide 22 BUN 2 L Creatinine 0.60 L Glucose 134 H Calcium 8.2 L Liver Function 06/27/22 Range/Units 04:37 Total Bilirubin 0.6 (0.2-1.3) mg/dL AST 40 H (14-36) U/L ALT 18 (6-35) U/L Alkaline Phosphatase 68 (38-126) U/L
[2022-06-27] MEDS: MORPHINE SULFATE (*CRX) 2 MG/ML INJ 4 MG IV PUSH (13:21)
[2022-06-27 14:35] LABS: Lactic Acid Reflex 0.8 mmol/L (0.7-2.0)
[2022-06-27 15:00] VITALS: TEMP 37.2
--- NOTE | 2022-06-27 15:14 | PC.NURSE ---
1233--Dr. Bender given report on pt-intermittent vomiting continues, pain level 10/10. Morphine ordered.
--- NOTE | 2022-06-27 15:16 | PC.NURSE ---
1330--To Xray per wheelchair.
--- NOTE | 2022-06-27 15:48 | PC.NURSE ---
1545--Update given to Dr. Bender.
[2022-06-27 16:17] LABS: Basophils Percent Auto 0.1 % (0.2-1.2); Hematocrit 34.4 % (37.0-47.0); Hemoglobin 11.2 g/dL (12.0-15.0); Immature Granulocyte Absolute 0.05 K/mm3 (0.00-0.031); Immature Granulocyte Percent A 0.3 % (0-0.5); Lymphocytes Percent Auto 10.4 % (18.3-44.2); Mean Corpuscular HGB Conc 32.6 g/dl (32-36); Mean Corpuscular Hemoglobin 23.2 pg (26-34); Mean Corpuscular Volume 71.4 fl (80-100); Mean Platelet Volume 9.2 fl (7.4-10.4); Monocytes Absolute Auto 0.9 K/mm3 (0.1-0.6); Monocytes Percent Auto 6.4 % (2.6-8.5); Neutrophils Absolute Auto 11.9 K/mm3 (1.3-6.7); Neutrophils Percent Auto 82.8 % (45.5-73.1); Platelet Count Result 236 k/mm3 (150-375); Red Blood Count 4.82 M/mm3 (4.2-5.4); Red Cell Distribution Width 14.5 % (11.5-14.5); White Blood Count 14.4 K/mm3 (4.5-10.0)
[2022-06-27 16:25] LABS: Alanine Aminotransferase 16 U/L (6-35); Albumin Level 3.8 g/dL (3.5-5.1); Alkaline Phosphatase 57 U/L (38-126); Anion Gap 8 mmol/L (8-16); Aspartate Amino Transferase 38 U/L (14-36); Bilirubin,Total 0.6 mg/dL (0.2-1.3); Blood Urea Nitrogen 2 mg/dL (7-17); Carbon Dioxide 24 mmol/L (22-30); Chloride 104 mmol/L (98-107); Estimated CRCL calculation 96 ml/min; Estimated Glomerular Filt Rate > 60; Glucose 121 mg/dL (65-110); Potassium 3.3 mmol/L (3.4-5.0); Sodium 136 mmol/L (137-145)
[2022-06-27 16:47] LABS: Free T4 Free Thyroxine 1.84 ng/mL (0.78-2.19)
[2022-06-27 16:56] LABS: Thyroid Stimulating Hormone < 0.015 uIU/mL (0.465-4.680)
--- NOTE | 2022-06-27 18:20 | PC.NURSE ---
Patient transferred fro OB to room 342 for further medical management. I spoke with Dr Paris via telephone and a consultation to hospitalist on duty was entered. Dr Paris states order for NG placement by Dr Bender can wait until patient is seen by hospitalist.
[2022-06-27 20:10] VITALS: BP 108/66; PULSE 65; RESP 18; TEMP 37; O2SAT 100
[2022-06-28] MEDS: FAMOTIDINE 20 MG/2 ML VIAL IV PUSH ×2 (02:27→19:59)
[2022-06-28] MEDS: ONDANSETRON INJ 4 MG/2 ML VIAL 8 MG IV PUSH ×2 (04:40→19:58)
[2022-06-28] MEDS: LORazepam INJ (*CRX) 2 MG/ML VIAL 1 MG IV PUSH (05:32)
[2022-06-28 05:47] VITALS: BP 139/72; PULSE 75; RESP 20; TEMP 36.2; O2SAT 100
--- NOTE | 2022-06-28 07:29 | PM.OBPNVD ---
OB - PN: Subj Subjective Date/time seen: 06/28/22 07:29 patient was sleeping, when woken she started moaning and crying, no recent vomiting, takes off her clothes entirely and rolls around naked in the bed, repetitively asks for IV pain medication. Reports abdominal pain lower mid abdomen. Interval history: HD 2 for intractable N/V, presumed hyperemesis. UOP great, replacing K, NPO, multiple antiemetics, pepcid, and still constant vomiting. Pt reports constant generalized abdominal pain. tried dicyclomine IM, no relief. pt requesting stronger pain meds. OB - PN: Obj Data Labs CBC & Chem 7: 06/27/22 16:00 06/27/22 16:00 Labs: Laboratory Results - last 24 hr 06/27/22 06/27/22 06/27/22 13:19 13:19 16:00 WBC 14.4 H RBC 4.82 Hgb 11.2 L Hct 34.4 L MCV 71.4 L MCH 23.2 L MCHC 32.6 RDW 14.5 Plt Count 236 MPV 9.2 Immature Gran % (Auto) 0.3 Neut % (Auto) 82.8 H Lymph % (Auto) 10.4 L Vance % (Auto) 6.4 Eos % (Auto) 0.0 Baso % (Auto) 0.1 L Lymph # (Auto) 1.50 Vance # (Auto) 0.9 H Eos # (Auto) 0.0 Baso # (Auto) 0.0 Abs Immat Gran (auto) 0.05 H Absolute Neuts (auto) 11.9 H Absolute Nucleated RBC 0.0 Nucleated RBC % 0.0 Sodium Potassium Chloride Carbon Dioxide Anion Gap BUN Creatinine Estim Creat Clear Calc Estimated GFR Glucose Lactic Acid 0.8 Calcium Total Bilirubin AST ALT Alkaline Phosphatase Total Protein Albumin Procalcitonin 0.0 TSH Free T4 06/27/22 06/27/22 16:00 16:00 WBC RBC Hgb Hct MCV MCH MCHC RDW Plt Count MPV Immature Gran % (Auto) Neut % (Auto) Lymph % (Auto) Vance % (Auto) Eos % (Auto) Baso % (Auto) Lymph # (Auto) Vance # (Auto) Eos # (Auto) Baso # (Auto) Abs Immat Gran (auto) Absolute Neuts (auto) Absolute Nucleated RBC Nucleated RBC % Sodium 136 L Potassium 3.3 L Chloride 104 Carbon Dioxide 24 Anion Gap 8 BUN 2 L Creatinine 0.60 L Estim Creat Clear Calc 96 Estimated GFR > 60 Glucose 121 H Lactic Acid Calcium 8.0 L Total Bilirubin 0.6 AST 38 H ALT 16 Alkaline Phosphatase 57 Total Protein 7.0 Albumin 3.8 Procalcitonin TSH < 0.015 L Free T4 1.84 Imaging Radiologist's impression: Impressions Upper Quadrant Ultrasound 06/27/22 08:29 IMPRESSION: 1: Normal limited abdominal ultrasound. Abdomen X-Ray 06/27/22 13:40 IMPRESSION: 1. Normal bowel gas pattern. OB - PN A/P Assessment and Plan (1) Abdominal pain, generalized: Code(s): R10.84 - Generalized abdominal pain Status: Acute (2) Hyperemesis gravidarum: Code(s): O21.0 - Mild hyperemesis gravidarum Status: Acute Plan 32-year-old multiparous female about 6 weeks gestation with intractable nausea and vomiting. No vomiting the last few hours, had considered in G-tube, medicine service is now managing her abdominal pain and vomiting, all hyperemesis treatments failed, patient was sleeping, when woken she started moaning and crying, no recent vomiting, takes off her clothes entirely and rolls around naked in the bed, repetitively asks for IV pain medication. Reports abdominal pain lower mid abdomen. To obtain psych consult, to obtain social work therapist consult Time Spent With Patient Time: Total time spent is greater than 50% in coordination of care (as documented) at patient's floor/unit and/or counseling patient: Review of Systems Review of Systems: All systems reviewed & are unremarkable except as noted in HPI and below Constitutional: Constitutional: Denies chills, Denies fatigue, Denies fever(s) and Denies weakness Eyes: Eyes: Denies blurry vision, Denies change in vision, Denies loss of peripheral vision, Denies loss of vision, Denies other visual disturbances and Denies eye pain ENT: De
--- NOTE | 2022-06-28 07:45 | WPDGIPROGNO ---
Progress Note: A&P Assessment and Plan (1) Hyperemesis gravidarum: Code(s): O21.0 - Mild hyperemesis gravidarum Status: Acute Assessment and Plan: she is on Zofran and promethazine for that (2) Abdominal pain, generalized: Code(s): R10.84 - Generalized abdominal pain Status: Acute Assessment and Plan: She is mostly tender in the lower abdomen. I suspect that she has some sort of colitis. I will check a lactic acid level to make sure that she does not have ischemic bowel issues but that would be rare at her age. because of her , we are limited in terms of imaging studies. Perhaps ultrasound of the pelvis would be beneficial as most of her pain is infraumbilical and suprapubic 06/28/2022 there is no change in physical examination. She has not had any stools to send for cultures. Normal procalcitonin rules out infectious etiology. Plain film of the abdomen was unremarkable. I am stump test to what could cause this symptom complex terms of a gastrointestinal disorder. Could ectopic cause symptoms like this? (3) Marijuana user: Code(s): F12.90 - Cannabis use, unspecified, uncomplicated Status: Acute Assessment and Plan: her symptoms could be due to cannabinoid syndrome, although I think her pain is too localized to the lower abdomen. nevertheless, nausea, vomiting, and abdominal pain are the typical features of regular marijuana use. 06/28/2022 she states that it has been 5 days since she used pot. She denies using anything else that would explain her symptoms in terms of of withdrawal pattern. (4) Change in bowel habits: Code(s): R19.4 - Change in bowel habit Status: Acute Assessment and Plan: Her stools have been very soft and narrow this week. She has had frequent bowel movements but has not had blood in her stools. I will send stools for fecal leukocytes as well as for cultures. 06/28/2022 no bowel movements today. Stool studies have been ordered are still not collected. (5) Leukocytosis: Code(s): D72.829 - Elevated white blood cell count, unspecified Status: Acute Assessment and Plan: white blood count remains elevated. procalcitonin level of 0 rules out bacterial infection. Subjective Date/time seen: 06/28/22 07:45 patient was sleeping when I entered the room but after waking her up she was writhing in pain. She states that she is still nauseated. She has not vomited during the night but did receive several more doses of Zofran. Exam Const: General: in distress ( writhing in bed and taking off her sheets after I woke her) severe and tired appearing GI: Inspection: normal to inspection GI Palp: Yes abdominal tenderness ( primarily lower half), Yes Soft to palpation and Yes No hepatosplenomegaly present Auscultation: normal bowel sounds Objective Data Vital Signs Vital Signs: Vital Signs - 24 hr 06/27/22 10:38 06/27/22 15:00 06/27/22 20:10 Temperature 37.0 C 37.2 C 37.0 C Pulse Rate 65 Respiratory Rate 18 Blood Pressure 108/66 Pulse Oximetry 100 06/28/22 05:47 Temperature 36.2 C L Pulse Rate 75 Respiratory Rate 20 Blood Pressure 139/72 Pulse Oximetry 100 Intake/Output Intake/Output: Intake & Output 06/25/22 06/26/22 06/27/22 06/28/22 23:59 23:59 23:59 23:59 Intake Total 2100 3300 3624 150 Output Total 1850 2800 Balance 2100 1450 824 150 Meds/Results Medications: Active Medications Generic Name Dose Route Start Last Admin Trade Name Yvanq PRN Reason Stop Dose Admin Acetaminophen 1,000 mg 06/25/22 18:51 Acetaminophen 500 Mg Tablet PO Q6H PRN Pain RATED 1-3 or headache Diphenhydramine HCl 25 mg 06/25/22 18:53 06/27/22 14:12 Diphenhydramine Hcl Inj 50 Mg/Ml Vial IV PUSH 25 mg Q4H PRN Administration Itching Famotidine 20 mg 06/25/22 21:00 06/28/22 02:27 Famotidine 20 Mg/2 Ml Vial IV PUSH 20 mg Q1
[2022-06-28 08:38] LABS: Basophils Percent Auto 0.2 % (0.2-1.2); Eosinophils Percent Auto 0.1 % (0-4.4); Hematocrit 35.9 % (37.0-47.0); Hemoglobin 11.4 g/dL (12.0-15.0); Immature Granulocyte Absolute 0.05 K/mm3 (0.00-0.031); Immature Granulocyte Percent A 0.4 % (0-0.5); Immature Platelet Fraction Pct 10.5 % (0.9-11.2); Lymphocytes Absolute Auto 1.36 K/mm3 (0.9-3.2); Mean Corpuscular HGB Conc 31.8 g/dl (32-36); Mean Corpuscular Volume 72.5 fl (80-100); Monocytes Absolute Auto 0.6 K/mm3 (0.1-0.6); Neutrophils Absolute Auto 10.3 K/mm3 (1.3-6.7); Neutrophils Percent Auto 83.3 % (45.5-73.1); Platelet Count Result 159 k/mm3 (150-375); Red Blood Count 4.95 M/mm3 (4.2-5.4); Red Cell Distribution Width 14.6 % (11.5-14.5); White Blood Count 12.3 K/mm3 (4.5-10.0)
[2022-06-28 08:47] LABS: Alanine Aminotransferase 16 U/L (6-35); Albumin Level 3.9 g/dL (3.5-5.1); Alkaline Phosphatase 65 U/L (38-126); Anion Gap 12 mmol/L (8-16); Aspartate Amino Transferase 28 U/L (14-36); Bilirubin,Total 0.6 mg/dL (0.2-1.3); Blood Urea Nitrogen 3 mg/dL (7-17); Calcium 8.3 mg/dL (8.4-10.2); Carbon Dioxide 17 mmol/L (22-30); Chloride 104 mmol/L (98-107); Estimated CRCL calculation 96 ml/min; Estimated Glomerular Filt Rate > 60; Glucose 116 mg/dL (65-110); Magnesium 1.7 mg/dL (1.6-2.3); Potassium 3.4 mmol/L (3.4-5.0); Sodium 133 mmol/L (137-145)
--- NOTE | 2022-06-28 09:30 | P.CONIM_ITS ---
Assessment and Plan Assessment and plan (1) Hyperemesis gravidarum: Code(s): O21.0 - Mild hyperemesis gravidarum Status: Acute Assessment and Plan: * Found to be , about 6-8 weeks * Complaints of nausea, vomiting, and abdominal pain * OB and GI on the case * Could be related to , marijuana use, or possible colitis (2) Abdominal pain, generalized: Code(s): R10.84 - Generalized abdominal pain Status: Acute Assessment and Plan: * Unknown etiology at this point * Could be a colitis * Lactic normal at 0.8 * Abd xray only shows paucity of gas pattern * Could be an ileus * Might benefit from a NG tube * GI on board (3) Marijuana user: Code(s): F12.90 - Cannabis use, unspecified, uncomplicated Status: Acute Assessment and Plan: * Could be causing symptoms * Has not used in 2 days (4) Hypokalemia: Code(s): E87.6 - Hypokalemia Status: Acute Assessment and Plan: * Was 2.9 upon arrival * Currently 3.3 * continue IV fluids with 20 of K * trend labs (5) Anemia: Code(s): D64.9 - Anemia, unspecified Status: Acute Assessment and Plan: * H/H stable at 11.2/34.4 * MCV low at 71.4 * Anemia labs ordered * Recommend supplement if able * Trend labs (6) Leukocytosis: Code(s): D72.829 - Elevated white blood cell count, unspecified Status: Acute Assessment and Plan: * WBC trending up currently at 14.4 * Continue to trend * No identifiable source of infection * it appears that OB has placed the patient on Macrobid Plan thank for allowing us to consult on this patient call with any questions HPI Data of Consult Consult date: 06/28/22 Requesting Physician: Lake Paris MD Primary Care Provider: EVALUATOR PHYSICIAN Consult Narrative Reason for consult: Medical management Narrative: Belem Fink is a 32 year old female with no significant medical history that presented to the ED with complaints of severe nausea, and vomiting. Patient was found to be a couple of days ago. Since then she has been experience intense nausea, vomiting, and abdominal pain. patient stated that she has been dealing with this for about a week and half. She also stated that she found out she was either Saturday or Saturday. She rates her pain currently at an 8/10 and states that his generalized pain throughout her abdomen. She still vomiting and is currently a clear frothy vomit. She does s [place] that she has headaches with weakness and fatigue. She has shortness of breath with pain and chills. She stated that her vomiting is been worse last couple days. She understands she can not have any pain medicine however she does want something to help her relax like Benadryl. Benadryl is currently on her Mar and Asked the nurse to give her some Benadryl as she is thrashing around in the bed and screaming incomplete discomfort and pain. She currently is a poor historian which seems more likely due to the pain. We have been consulted for medical management thank you for including us on this case Review of Systems Review of Systems: All systems reviewed & are unremarkable except as noted in HPI and below [facility] Past Medical History Medical History Patient denies signific
--- NOTE | 2022-06-28 09:30 | PM.IMCN ---
Assessment and Plan Assessment and plan (1) Hyperemesis gravidarum: Code(s): O21.0 - Mild hyperemesis gravidarum Status: Acute Assessment and Plan: Found to be , about 6-8 weeks Complaints of nausea, vomiting, and abdominal pain OB and GI on the case Could be related to , marijuana use, or possible colitis (2) Abdominal pain, generalized: Code(s): R10.84 - Generalized abdominal pain Status: Acute Assessment and Plan: Unknown etiology at this point Could be a colitis Lactic normal at 0.8 Abd xray only shows paucity of gas pattern Could be an ileus Might benefit from a NG tube GI on board (3) Marijuana user: Code(s): F12.90 - Cannabis use, unspecified, uncomplicated Status: Acute Assessment and Plan: Could be causing symptoms Has not used in 2 days (4) Hypokalemia: Code(s): E87.6 - Hypokalemia Status: Acute Assessment and Plan: Was 2.9 upon arrival Currently 3.3 continue IV fluids with 20 of K trend labs (5) Anemia: Code(s): D64.9 - Anemia, unspecified Status: Acute Assessment and Plan: H/H stable at 11.2/34.4 MCV low at 71.4 Anemia labs ordered Recommend supplement if able Trend labs (6) Leukocytosis: Code(s): D72.829 - Elevated white blood cell count, unspecified Status: Acute Assessment and Plan: WBC trending up currently at 14.4 Continue to trend No identifiable source of infection it appears that OB has placed the patient on Macrobid Plan thank for allowing us to consult on this patient call with any questions HPI Data of Consult Consult date: 06/28/22 Requesting Physician: Lake Paris MD Primary Care Provider: DEVELOPMENT OFFICER PHYSICIAN Consult Narrative Reason for consult: Medical management Narrative: Belem Fink is a 32 year old female with no significant medical history that presented to the ED with complaints of severe nausea, and vomiting. Patient was found to be a couple of days ago. Since then she has been experience intense nausea, vomiting, and abdominal pain. patient stated that she has been dealing with this for about a week and half. She also stated that she found out she was either Saturday or Saturday. She rates her pain currently at an 8/10 and states that his generalized pain throughout her abdomen. She still vomiting and is currently a clear frothy vomit. She does state that she has headaches with weakness and fatigue. She has shortness of breath with pain and chills. She stated that her vomiting is been worse last couple days. She understands she can not have any pain medicine however she does want something to help her relax like Benadryl. Benadryl is currently on her Mar and Asked the nurse to give her some Benadryl as she is thrashing around in the bed and screaming incomplete discomfort and pain. She currently is a poor historian which seems more likely due to the pain. We have been consulted for medical management thank you for including us on this case Review of Systems Review of Systems: All systems reviewed & are unremarkable except as noted in HPI and below PMF[facility] Past Medical History Medical History Patient denies significant medical history Social History Social History (Updated 06/28/22 @ 09:57 by SHRUTHI Bravo) Social History: patient has 1 other child at home a little girl. She likes Lynn Gracia Fink her grandmother to be her surrogate she was to be a full code. 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
[2022-06-28 09:56] LABS: Ovalocytes 1+ (NORMAL); Platelet Estimate Adequate (Adequate)
[2022-06-28 10:07] LABS: Immature Reticulocyte Fraction 10.1 % (3.0-15.9); Reticulocyte Percent 1.55 % (0.7-4.3); Reticulocytes Absolute 0.08 B/L (32.2-175.7)
[2022-06-28] MEDS: diphenhydrAMINE HCl INJ 50 MG/ML VIAL 25 MG IV PUSH ×2 (10:07→19:58)
[2022-06-28 10:09] LABS: Iron 65 ug/dL (37-170)
[2022-06-28 10:24] LABS: Percent Iron Saturation 21 % (20-50)
[2022-06-28 11:05] LABS: Transferrin 223 mg/dL (206-381)
[2022-06-28 12:05] LABS: Folic Acid 9.7 ng/mL (2.76->20)
[2022-06-28 13:50] VITALS: BP 135/76; PULSE 78; RESP 16; TEMP 37.3; O2SAT 100
[2022-06-28 14:19] VITALS: O2SAT 98
[2022-06-28] MEDS: LIDOCAINE HCL 1% LOCAL INJ 2 ML AMPUL 5 ML INFILTRATE (14:25)
[2022-06-28] MEDS: fentaNYL CITRATE INJ (*CRX) 100 MCG/2 ML VIAL 50 MCG IV PUSH (17:29)
--- NOTE | 2022-06-28 19:59 | PC.NURSE ---
Patient complaining of pain since beginning of shift. I Spoke with Dr Paris via phone about pain medication after patient was seen by HAT BRIM CURLER,Luis. I called Dr Paris a second time to clarify the verbals orders and ask that he input all orders for pain medication for the patient.
[2022-06-28] MEDS: SALINE LOCK FLUSH 10 ML IV PUSH (20:06)
[2022-06-28 20:22] VITALS: BP 137/72; PULSE 73; RESP 18; TEMP 36.6; O2SAT 100
[2022-06-29] MEDS: ONDANSETRON INJ 4 MG/2 ML VIAL 8 MG IV PUSH ×3 (05:23→21:14)
[2022-06-29] MEDS: diphenhydrAMINE HCl INJ 50 MG/ML VIAL 25 MG IV PUSH ×3 (05:23→20:42)
[2022-06-29] MEDS: SALINE LOCK FLUSH 10 ML IV PUSH ×3 (05:24→21:16)
[2022-06-29 05:36] LABS: Basophils Percent Auto 0.2 % (0.2-1.2); Eosinophils Percent Auto 0.3 % (0-4.4); Hematocrit 33.8 % (37.0-47.0); Hemoglobin 10.9 g/dL (12.0-15.0); Immature Granulocyte Absolute 0.04 K/mm3 (0.00-0.031); Immature Granulocyte Percent A 0.3 % (0-0.5); Lymphocytes Percent Auto 20.3 % (18.3-44.2); Mean Corpuscular HGB Conc 32.2 g/dl (32-36); Mean Corpuscular Hemoglobin 22.8 pg (26-34); Mean Corpuscular Volume 70.6 fl (80-100); Mean Platelet Volume 10.9 fl (7.4-10.4); Monocytes Absolute Auto 0.9 K/mm3 (0.1-0.6); Monocytes Percent Auto 6.9 % (2.6-8.5); Neutrophils Absolute Auto 9.6 K/mm3 (1.3-6.7); Platelet Count Result 259 k/mm3 (150-375); Red Blood Count 4.79 M/mm3 (4.2-5.4); Red Cell Distribution Width 14.2 % (11.5-14.5); White Blood Count 13.3 K/mm3 (4.5-10.0)
[2022-06-29 05:41] VITALS: BP 122/75; PULSE 87; RESP 16; TEMP 36.5; O2SAT 100
[2022-06-29 05:44] LABS: Alanine Aminotransferase 13 U/L (6-35); Albumin Level 3.6 g/dL (3.5-5.1); Alkaline Phosphatase 59 U/L (38-126); Anion Gap 5 mmol/L (8-16); Aspartate Amino Transferase 23 U/L (14-36); Bilirubin,Total 0.6 mg/dL (0.2-1.3); Blood Urea Nitrogen 5 mg/dL (7-17); Carbon Dioxide 27 mmol/L (22-30); Chloride 103 mmol/L (98-107); Estimated CRCL calculation 96 ml/min; Estimated Glomerular Filt Rate > 60; Glucose 104 mg/dL (65-110); Magnesium 1.6 mg/dL (1.6-2.3); Potassium 2.9 mmol/L (3.4-5.0); Sodium 135 mmol/L (137-145)
[2022-06-29 06:03] LABS: Microcytosis 1+ (NORMAL); Platelet Estimate Adequate (Adequate)
--- NOTE | 2022-06-29 07:04 | WPDGIPROGNO ---
Progress Note: A&P Assessment and Plan (1) Hyperemesis gravidarum: Code(s): O21.0 - Mild hyperemesis gravidarum Status: Acute Assessment and Plan: she is on Zofran and promethazine for that 06/29/2022 she still requires Zofran but is feeling a little hungry. I will try advancing her diet (2) Abdominal pain, generalized: Code(s): R10.84 - Generalized abdominal pain Status: Acute Assessment and Plan: She is mostly tender in the lower abdomen. I suspect that she has some sort of colitis. I will check a lactic acid level to make sure that she does not have ischemic bowel issues but that would be rare at her age. because of her , we are limited in terms of imaging studies. Perhaps ultrasound of the pelvis would be beneficial as most of her pain is infraumbilical and suprapubic 06/28/2022 there is no change in physical examination. She has not had any stools to send for cultures. Normal procalcitonin rules out infectious etiology. Plain film of the abdomen was unremarkable. I am stump test to what could cause this symptom complex terms of a gastrointestinal disorder. 06/29/22 her pain is less severe today. It is more localized. She allows me to palpate her abdomen without reacting and no longer writhing like she was the last couple of days. (3) Marijuana user: Code(s): F12.90 - Cannabis use, unspecified, uncomplicated Status: Acute Assessment and Plan: her symptoms could be due to cannabinoid syndrome, although I think her pain is too localized to the lower abdomen. nevertheless, nausea, vomiting, and abdominal pain are the typical features of regular marijuana use. 06/28/2022 she states that it has been 5 days since she used pot. She denies using anything else that would explain her symptoms in terms of of withdrawal pattern. (4) Change in bowel habits: Code(s): R19.4 - Change in bowel habit Status: Acute Assessment and Plan: Her stools have been very soft and narrow this week. She has had frequent bowel movements but has not had blood in her stools. I will send stools for fecal leukocytes as well as for cultures. 06/28/2022 no bowel movements today. Stool studies have been ordered are still not collected. 06/29/2022 she says that she has had a few mucoid stools. Stools have not yet been collected for pathogens. (5) Leukocytosis: Code(s): D72.829 - Elevated white blood cell count, unspecified Status: Acute Assessment and Plan: white blood count remains elevated. procalcitonin level of 0 rules out bacterial infection. Subjective Date/time seen: 06/29/22 07:04 she said she slept some last night. She has much less restless now. Still nauseated, she had Zofran a couple of hours ago. Has not needed pain medication during the night so far she still complains of pain primarily suprapubic and left lower quadrant which is constant. She says she has passed some mucoid stool but unfortunately it has not yet been collected and sent to the lab. I will remind the staff to try to collect them. Exam Const: General: tired appearing GI: Inspection: normal to inspection GI Palp: Yes abdominal tenderness ( Suprapubic and left lower quadrant) and Yes No hepatosplenomegaly present Auscultation: normal bowel sounds Objective Data Vital Signs Vital Signs: Vital Signs - 24 hr 06/28/22 13:50 06/28/22 14:19 06/28/22 20:22 Temperature 37.3 C 36.6 C Pulse Rate 78 73 Respiratory Rate 16 18 Blood Pressure 135/76 137/72 Pulse Oximetry 100 98 100 Oxygen Delivery Room Air 06/29/22 05:41 Temperature 36.5 C Pulse Rate 87 Respiratory Rate 16 Blood Pressure 122/75 Pulse Oximetry 100 Oxygen Delivery Intake/Output Intake/Output: Intake & Output 06/26/22 06/27/22 06/28/22 06/29/22 23:59 23:59 23:59 23:59 Intake Total 3300 3624 1270 100 Output Total 1850 2800 Balance 3319 744 5190 100 Med
--- NOTE | 2022-06-29 08:04 | PM.OBPNVD ---
OB - PN: Subj Subjective Date/time seen: 06/29/22 08:04 Seen by GI, no nausea at this moment, no vomiting at this moment, has been episodes of abdominal pain and nausea. They are becoming less frequent and shorter in duration. She has some dizziness with standing. She is recumbent most of the day. Rested well. And needed minimal pain medication last night. Interval history: HD 2 for intractable N/V, presumed hyperemesis. UOP great, replacing K, NPO, multiple antiemetics, pepcid, and still constant vomiting. Pt reports constant generalized abdominal pain. tried dicyclomine IM, no relief. pt requesting stronger pain meds. OB - PN: Obj Data Labs CBC & Chem 7: 06/29/22 05:14 06/29/22 05:14 Labs: Laboratory Results - last 24 hr 06/28/22 06/28/22 06/28/22 08:23 08:23 08:23 WBC 12.3 H RBC 4.95 Hgb 11.4 L Hct 35.9 L MCV 72.5 L MCH 23.0 L MCHC 31.8 L RDW 14.6 H Plt Count 159 MPV TNP Immature Gran % (Auto) 0.4 Neut % (Auto) 83.3 H Lymph % (Auto) 11.0 L Morrison % (Auto) 5.0 Eos % (Auto) 0.1 Baso % (Auto) 0.2 Lymph # (Auto) 1.36 Morrison # (Auto) 0.6 Eos # (Auto) 0.0 Baso # (Auto) 0.0 Abs Immat Gran (auto) 0.05 H Absolute Neuts (auto) 10.3 H Absolute Nucleated RBC 0.0 Nucleated RBC % 0.0 Platelet Estimate Adequate % Immature Plt Fraction 10.5 Microcytosis Ovalocytes 1+ Absolute Retic 0.08 L Percent Retic 1.55 Immature Retic Fraction 10.1 Retic Hgb Content 27.0 L Sodium 133 L Potassium 3.4 Chloride 104 Carbon Dioxide 17 L Anion Gap 12 BUN 3 L Creatinine 0.60 L Estim Creat Clear Calc 96 Estimated GFR > 60 Glucose 116 H Calcium 8.3 L Magnesium 1.7 Iron TIBC % Saturation Transferrin Ferritin Total Bilirubin 0.6 AST 28 ALT 16 Alkaline Phosphatase 65 Total Protein 7.0 Albumin 3.9 Vitamin B12 Folate 06/28/22 06/28/22 06/29/22 08:23 08:23 05:14 WBC 13.3 H RBC 4.79 Hgb 10.9 L Hct 33.8 L MCV 70.6 L MCH 22.8 L MCHC 32.2 RDW 14.2 Plt Count 259 D MPV 10.9 H Immature Gran % (Auto) 0.3 Neut % (Auto) 72.0 Lymph % (Auto) 20.3 Morrison % (Auto) 6.9 Eos % (Auto) 0.3 Baso % (Auto) 0.2 Lymph # (Auto) 2.70 Morrison # (Auto) 0.9 H Eos # (Auto) 0.0 Baso # (Auto) 0.0 Abs Immat Gran (auto) 0.04 H Absolute Neuts (auto) 9.6 H Absolute Nucleated RBC 0.0 Nucleated RBC % 0.0 Platelet Estimate Adequate % Immature Plt Fraction Microcytosis 1+ Ovalocytes Absolute Retic Percent Retic Immature Retic Fraction Retic Hgb Content Sodium Potassium Chloride Carbon Dioxide Anion Gap BUN Creatinine Estim Creat Clear Calc Estimated GFR Glucose Calcium Magnesium Iron 65 TIBC 316 % Saturation 21 Transferrin 223 Ferritin 56.90 Total Bilirubin AST ALT Alkaline Phosphatase Total Protein Albumin Vitamin B12 507.0 Folate 9.7 06/29/22 05:14 WBC RBC Hgb Hct MCV MCH MCHC RDW Plt Count MPV Immature Gran % (Auto) Neut % (Auto) Lymph % (Auto) Morrison % (Auto) Eos % (Auto) Baso % (Auto) Lymph # (Auto) Morrison # (Auto) Eos # (Auto) Baso # (Auto) Abs Immat Gran (auto) Absolute Neuts (auto) Absolute Nucleated RBC Nucleated RBC % Platelet Estimate % Immature Plt Fraction Microcytosis Ovalocytes Absolute Retic Percent Retic Immature Retic Fraction Retic Hgb Content Sodium 135 L Potassium 2.9 L Chloride 103 Carbon Dioxide 27 Anion Gap 5 L BUN 5 L Creatinine 0.60 L Estim Creat Clear Calc 96 Estimated GFR > 60 Glucose 104 Calcium 8.0 L Magnesium 1.6 Iron TIBC % Saturation Transferrin Ferritin Total Bilirubin 0.6 AST 23 ALT 13 Alkaline Phosphatase 59 Total Protein 7.0 Albumin 3.6 Vit
[2022-06-29] MEDS: FAMOTIDINE 20 MG/2 ML VIAL IV PUSH ×2 (08:05→20:42)
[2022-06-29] MEDS: ACETAMINOPHEN 500 MG TABLET 1000 MG PO (08:06)
--- NOTE | 2022-06-29 10:00 | PM.IMPN ---
Progress Note: A&P Assessment and Plan (1) Hyperemesis gravidarum: Code(s): O21.0 - Mild hyperemesis gravidarum Status: Acute Assessment and Plan: Found to be , about 6-8 weeks Complaints of nausea, vomiting, and abdominal pain OB and GI on the case Could be related to , marijuana use, or possible colitis (2) Abdominal pain, generalized: Code(s): R10.84 - Generalized abdominal pain Status: Acute Assessment and Plan: Unknown etiology at this point Could be a colitis Lactic normal at 0.8 Abd xray only shows paucity of gas pattern Could be an ileus Might benefit from a NG tube GI on board Fentanyl added per Ob (3) Marijuana user: Code(s): F12.90 - Cannabis use, unspecified, uncomplicated Status: Acute Assessment and Plan: Could be causing symptoms Has not used in 2 days (4) Hypokalemia: Code(s): E87.6 - Hypokalemia Status: Acute Assessment and Plan: Was 2.9 upon arrival Currently 2.9 ordered 40IV and 40PO continue IV fluids with 20 of K trend labs Recheck level 1 hour post infusion (5) Anemia: Code(s): D64.9 - Anemia, unspecified Status: Acute Assessment and Plan: H/H stable at 10.9/33.8 MCV low at 71.4 Anemia labs no deficits noted, probably related to current Recommend supplement if able Trend labs (6) Leukocytosis: Code(s): D72.829 - Elevated white blood cell count, unspecified Status: Acute Assessment and Plan: WBC seems stable at 13.3 Continue to trend No identifiable source of infection it appears that OB has placed the patient on Macrobid Time Spent With Patient Time with patient: Greater than 35 minutes Subjective Date/time seen: 06/29/22 10:00 Interval history: 06/29/22 10:00 Patient is a lot more calm today. She stated that her stomach does her she rates at a 9/10. She also stated that she has been nauseated and vomiting. She ate her clear liquids but stated that she threw all up. She does not feel any better however she does look better. She denies any chest pain, shortness of breath. she did state that her abdominal pain is on the lower abdomen more like pelvic pain and stated that it going up her left side. The pain medication was ordered has been helpful. 06/28/22 0930 Belem Fink is a 32 year old female with no significant medical history that presented to the ED with complaints of severe nausea, and vomiting.? Patient was found to be ? a couple of days ago.? Since then she has been experience intense nausea, vomiting, and abdominal pain. ? patient stated that she has been dealing with this for about a week and half.? She also stated that she found out she was either Saturday or Saturday.? She rates her pain currently at an 8/10 and states that his generalized pain throughout her abdomen.? She still vomiting and is currently a clear frothy vomit.? She does state that she has headaches with weakness and fatigue.? She has shortness of breath with pain and chills.? She stated that her vomiting is been worse last couple days.? She understands she can not have any pain medicine however she does want something to help her relax like Benadryl.? Benadryl is currently on her Mar and? Asked the nurse to give her some Benadryl as she is thrashing around in the bed and screaming incomplete discomfort and pain.? She currently is a poor historian which seems more likely due to the pain. Review of Systems Review of Systems: All systems reviewed & are unremarkable except as noted in HPI and below Exam Const: General: cooperative, comfortable, no acute distress, well developed, alert, awake, ill appearing acutely and tired appearing Nutritional Appearance: well nourished Orientation/consciousness: patient oriented x3 Limitations: no limitations HENMT: Head:
--- NOTE | 2022-06-29 10:00 | P.PNIM_ITS ---
Progress Note: A&P Assessment and Plan (1) Hyperemesis gravidarum: Code(s): O21.0 - Mild hyperemesis gravidarum Status: Acute Assessment and Plan: * Found to be , about 6-8 weeks * Complaints of nausea, vomiting, and abdominal pain * OB and GI on the case * Could be related to , marijuana use, or possible colitis (2) Abdominal pain, generalized: Code(s): R10.84 - Generalized abdominal pain Status: Acute Assessment and Plan: * Unknown etiology at this point * Could be a colitis * Lactic normal at 0.8 * Abd xray only shows paucity of gas pattern * Could be an ileus * Might benefit from a NG tube * GI on board * Fentanyl added per Ob (3) Marijuana user: Code(s): F12.90 - Cannabis use, unspecified, uncomplicated Status: Acute Assessment and Plan: * Could be causing symptoms * Has not used in 2 days (4) Hypokalemia: Code(s): E87.6 - Hypokalemia Status: Acute Assessment and Plan: * Was 2.9 upon arrival * Currently 2.9 ordered 40IV and 40PO * continue IV fluids with 20 of K * trend labs * Recheck level 1 hour post infusion (5) Anemia: Code(s): D64.9 - Anemia, unspecified Status: Acute Assessment and Plan: * H/H stable at 10.9/33.8 * MCV low at 71.4 * Anemia labs no deficits noted, probably related to current * Recommend supplement if able * Trend labs (6) Leukocytosis: Code(s): D72.829 - Elevated white blood cell count, unspecified Status: Acute Assessment and Plan: * WBC seems stable at 13.3 * Continue to trend * No identifiable source of infection * it appears that OB has placed the patient on Macrobid Time Spent With Patient Time with patient: Greater than 35 minutes Subjective Date/time seen: 06/29/22 10:00 Interval history: 06/29/22 10:00 Patient is a lot more calm today. She stated that her stomach does her she rates at a 9/10. She also stated that she has been nauseated and vomiting. She ate her clear liquids but stated that she threw all up. She does not feel any better however she does look better. She denies any chest pain, shortness of breath. she did state that her abdominal pain is on the lower abdomen more like pelvic pain and stated that it going up her left side. The pain medication was ordered has been helpful. 06/28/22 0930 Belem Fink is a 32 year old female with no significant medical history that presented to the ED with complaints of severe nausea, and vomiting.? Patient was found to be ? a couple of days ago.? Since then she has been experience intense nausea, vomiting, and abdominal pain. ? patient stated that she has been dealing with this for about a week and half.? She also stated that she found out she was either Saturday or Saturday.? She rates her pain currently at an 8/10 and states that his generalized pain throughout her abdomen.? She still vomiting and is currently a clear frothy vomit.? She does state that she has headaches with weakness and fatigue.? She has shortness of breath with pain and chills.? She stated that her vomiting is been worse last couple days.? She understands she can not have any pain medicine however she does want something to help her relax like Benadryl.? Benadryl is currently on her Mar and? Asked the nurse to give her some Benadryl as she is thrashing around in the bed and sc
[2022-06-29] MEDS: POTASSIUM CHLORIDE INJ 40 MEQ in SODIUM CHLORIDE 0.9% IV 500 ML 130 MEQ IVPB (10:24)
--- NOTE | 2022-06-29 19:27 | PC.NURSE ---
Pt is here for unknown cause of nausea and vomiting. Pt has remained in bed most of the day. Pt did shower herself with the help of her visitor. Pt was educated on the fact that the effects of the medication ordered for her is unknown and pt decided to try other methods of pain relief. Pt has been doing ok with alternating between heat and ice. I stated my concerns for the medication ordered and I was instructed to go ahead and give it to her. Pt was able to tolerate her clear liquid diet. Pt does not want any mention of her to her family and has asked that it is passed on to the plant operator/shift supervisor nurse. warehouse worker 2nd shift nurse was informed. Pt was monitored for any changes in status.
[2022-06-29 19:28] VITALS: BP 109/64; PULSE 75; RESP 18; TEMP 36.8; O2SAT 100
[2022-06-29] MEDS: fentaNYL CITRATE INJ (*CRX) 100 MCG/2 ML VIAL 50 MCG IV PUSH (22:34)
[2022-06-30] MEDS: fentaNYL CITRATE INJ (*CRX) 100 MCG/2 ML VIAL 50 MCG IV PUSH ×4 (02:31→22:03)
[2022-06-30 05:46] VITALS: BP 112/76; PULSE 90; RESP 20; TEMP 36.7; O2SAT 100
[2022-06-30] MEDS: ACETAMINOPHEN 500 MG TABLET 1000 MG PO (06:55)
[2022-06-30] MEDS: diphenhydrAMINE HCl INJ 50 MG/ML VIAL 25 MG IV PUSH (07:17)
[2022-06-30] MEDS: FAMOTIDINE 20 MG/2 ML VIAL IV PUSH (09:59)
[2022-06-30] MEDS: ONDANSETRON INJ 4 MG/2 ML VIAL 8 MG IV PUSH ×2 (10:47→17:40)
--- NOTE | 2022-06-30 12:35 | PC.NURSE ---
IV Fentanyl ordered for pain. Spoke with Dr Paris to clarify whether he wanted to monitor patient while giving Fentanyl on the Medical floor without monitoring. He stated, Yes, I want her to have it. We do it all the time. No, I don't want her to be on a monitor.
[2022-06-30] MEDS: fentaNYL CITRATE INJ (*CRX) 100 MCG/2 ML VIAL IV PUSH (12:59)
--- NOTE | 2022-06-30 13:19 | PM.GYNPNOP ---
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 No evidence of bowel obstruction on the x-ray. Has some constipation. We intend to place a Dulcolax suppository. She is getting pain medication. She has long periods without any pain or any vomiting. Vomiting has not been witnessed lately. Strongly suspect some kind of secondary gain or psychiatric aspect to the patient's symptoms. Symptoms are very exaggerated with the presence of her father. Will continue observation and consider discharge. Time Spent With Patient Time: Total time spent is greater than 50% in coordination of care (as documented) at patient's floor/unit and/or counseling patient: Time with patient: 15 - 25 minutes COMBINATION WORKER- PN:Subj Post-Op Subjective Date/time seen: 06/30/22 13:19Patient willing around in bed, reports severe abdominal pain, has pressure in her rectum, denies a bowel movement since she has been in the hospital. No observed vomiting, small amount in the cyst that was unwitnessed. Patient is asking for the fetus to be removed from her uterus. Asking to be transferred some were the termination could be performed. Interval history: 06/29/22 10:00 Patient is a lot more calm today. She stated that her stomach does her she rates at a 9/10. She also stated that she has been nauseated and vomiting. She ate her clear liquids but stated that she threw all up. She does not feel any better however she does look better. She denies any chest pain, shortness of breath. she did state that her abdominal pain is on the lower abdomen more like pelvic pain and stated that it going up her left side. The pain medication was ordered has been helpful. 06/28/22 0930 Belem Fink is a 32 year old female with no significant medical history that presented to the ED with complaints of severe nausea, and vomiting.? Patient was found to be ? a couple of days ago.? Since then she has been experience intense nausea, vomiting, and abdominal pain. ? patient stated that she has been dealing with this for about a week and half.? She also stated that she found out she was either Saturday or Saturday.? She rates her pain currently at an 8/10 and states that his generalized pain throughout her abdomen.? She still vomiting and is currently a clear frothy vomit.? She does state that she has headaches with weakness and fatigue.? She has shortness of breath with pain and chills.? She stated that her vomiting is been worse last couple days.? She understands she can not have any pain medicine however she does want something to help her relax like Benadryl.? Benadryl is currently on her Mar and? Asked the nurse to give her some Benadryl as she is thrashing around in the bed and screaming incomplete discomfort and pain.? She currently is a poor historian which seems more likely due to the pain. Exam Const: General: cooperative, healthy appearing, comfortable and no acute distress; No confusion Orientation/consciousness: oriented to person, oriented to place, oriented to time and No confusion HENMT: Head: normal to inspection Ears: external ears normal General nose exam: Normal external nose present Face and sinus: normal facial exam Eyes: General: appearance normal, both eyes and all related structures Neck: Neck: normal visual inspection, trachea midline and supple Resp: Auscultation: clear to auscultation bilaterally, no crackles, no rales, no rhonchi and no wheezes Cardio: Rate: regular rate Rhythm: regular rhythm Heart sounds: no click, no murmurs and no rubs GI: GI Palp: No abd
--- NOTE | 2022-06-30 13:30 | PM.IMPN ---
Progress Note: A&P Assessment and Plan (1) Hyperemesis gravidarum: Code(s): O21.0 - Mild hyperemesis gravidarum Status: Acute Assessment and Plan: Found to be , about 6-8 weeks Complaints of nausea, vomiting, and abdominal pain OB and GI on the case Could be related to , marijuana use, or possible colitis (2) Abdominal pain, generalized: Code(s): R10.84 - Generalized abdominal pain Status: Acute Assessment and Plan: Unknown etiology at this point Could be a colitis Lactic normal at 0.8 Abd xray only shows paucity of gas pattern Could be an ileus Might benefit from a NG tube GI on board Fentanyl added per Ob Could be from constipation Suppository added (3) Marijuana user: Code(s): F12.90 - Cannabis use, unspecified, uncomplicated Status: Acute Assessment and Plan: Could be causing symptoms Has not used in 2 days (4) Hypokalemia: Code(s): E87.6 - Hypokalemia Status: Acute Assessment and Plan: Was 2.9 upon arrival Currently 2.9 ordered 40IV and 40PO continue IV fluids with 20 of K trend labs Recheck level 1 hour post infusion (5) Anemia: Code(s): D64.9 - Anemia, unspecified Status: Acute Assessment and Plan: H/H stable at 10.9/33.8 MCV low at 71.4 Anemia labs no deficits noted, probably related to current Recommend supplement if able Trend labs (6) Leukocytosis: Code(s): D72.829 - Elevated white blood cell count, unspecified Status: Acute Assessment and Plan: WBC seems stable at 13.3 Continue to trend No identifiable source of infection it appears that OB has placed the patient on Macrobid Time Spent With Patient Time with patient: Greater than 35 minutes Subjective Date/time seen: 06/30/221329 Interval history: 06/30/221329 Patient was okay when I walked in. It was reported that patient had been very dramatic especially while her dad was there. She states that her abdomen hurts a lot and she still very nauseous. She stated that she has not been able to tolerate any fluids or food. Pain medication has been increased. Labs remained stable at this time 06/29/22 10:00 Patient is a lot more calm today. She stated that her stomach does her she rates at a 9/10. She also stated that she has been nauseated and vomiting. She ate her clear liquids but stated that she threw all up. She does not feel any better however she does look better. She denies any chest pain, shortness of breath. she did state that her abdominal pain is on the lower abdomen more like pelvic pain and stated that it going up her left side. The pain medication was ordered has been helpful. 06/28/22 0930 Belem Fink is a 32 year old female with no significant medical history that presented to the ED with complaints of severe nausea, and vomiting.? Patient was found to be ? a couple of days ago.? Since then she has been experience intense nausea, vomiting, and abdominal pain. ? patient stated that she has been dealing with this for about a week and half.? She also stated that she found out she was either Saturday or Saturday.? She rates her pain currently at an 8/10 and states that his generalized pain throughout her abdomen.? She still vomiting and is currently a clear frothy vomit.? She does state that she has headaches with weakness and fatigue.? She has shortness of breath with pain and chills.? She stated that her vomiting is been worse last couple days.? She understands she can not have any pain medicine however she does want something to help her relax like Benadryl.? Benadryl is currently on her Mar and? Asked the nurse to give her some Benadryl as she is thrashing around in the bed and screaming incomplete discomfort and pain.? She currently is a poor historian which seems more likely due
--- NOTE | 2022-06-30 13:30 | P.PNIM_ITS ---
Progress Note: A&P Assessment and Plan (1) Hyperemesis gravidarum: Code(s): O21.0 - Mild hyperemesis gravidarum Status: Acute Assessment and Plan: * Found to be , about 6-8 weeks * Complaints of nausea, vomiting, and abdominal pain * OB and GI on the case * Could be related to , marijuana use, or possible colitis (2) Abdominal pain, generalized: Code(s): R10.84 - Generalized abdominal pain Status: Acute Assessment and Plan: * Unknown etiology at this point * Could be a colitis * Lactic normal at 0.8 * Abd xray only shows paucity of gas pattern * Could be an ileus * Might benefit from a NG tube * GI on board * Fentanyl added per Ob * Could be from constipation * Suppository added (3) Marijuana user: Code(s): F12.90 - Cannabis use, unspecified, uncomplicated Status: Acute Assessment and Plan: * Could be causing symptoms * Has not used in 2 days (4) Hypokalemia: Code(s): E87.6 - Hypokalemia Status: Acute Assessment and Plan: * Was 2.9 upon arrival * Currently 2.9 ordered 40IV and 40PO * continue IV fluids with 20 of K * trend labs * Recheck level 1 hour post infusion (5) Anemia: Code(s): D64.9 - Anemia, unspecified Status: Acute Assessment and Plan: * H/H stable at 10.9/33.8 * MCV low at 71.4 * Anemia labs no deficits noted, probably related to current * Recommend supplement if able * Trend labs (6) Leukocytosis: Code(s): D72.829 - Elevated white blood cell count, unspecified Status: Acute Assessment and Plan: * WBC seems stable at 13.3 * Continue to trend * No identifiable source of infection * it appears that OB has placed the patient on Macrobid Time Spent With Patient Time with patient: Greater than 35 minutes Subjective Date/time seen: 06/30/221329 Interval history: 06/30/221329 Patient was okay when I walked in. It was reported that patient had been very dramatic especially while her dad was there. She states that her abdomen hurts a lot and she still very nauseous. She stated that she has not been able to tolerate any fluids or food. Pain medication has been increased. Labs remained stable at this time 06/29/22 10:00 Patient is a lot more calm today. She stated that her stomach does her she rates at a 9/10. She also stated that she has been nauseated and vomiting. She ate her clear liquids but stated that she threw all up. She does not feel any better however she does look better. She denies any chest pain, shortness of breath. she did state that her abdominal pain is on the lower abdomen more like pelvic pain and stated that it going up her left side. The pain medication was ordered has been helpful. 06/28/22 0930 Belem Fink is a 32 year old female with no significant medical history that presented to the ED with complaints of severe nausea, and vomiting.? Patient was found to be ? a couple of days ago.? Since then she has been experience intense nausea, vomiting, and abdominal pain. ? patient stated that she has been dealing with this for about a week and half.? She also stated that she found out she was either Saturday or Saturday.? She rates her pain currently at an 8/10 and states that his generalized pain throughout her abdomen.? She still vomiting and is currently a clear frothy vomit.
--- NOTE | 2022-06-30 15:05 | WPDGIPROGNO ---
Progress Note: A&P Assessment and Plan (1) Abdominal pain, generalized: Code(s): R10.84 - Generalized abdominal pain Status: Acute Assessment and Plan: unchanged (2) Hyperemesis gravidarum: Code(s): O21.0 - Mild hyperemesis gravidarum Status: Acute Assessment and Plan: medical support (3) Marijuana user: Code(s): F12.90 - Cannabis use, unspecified, uncomplicated Status: Acute (4) Change in bowel habits: Code(s): R19.4 - Change in bowel habit Status: Acute Assessment and Plan: mostly constipation, used dulcolax Subjective Date/time seen: 06/30/22 15:05 Interval history: she is comfortable but still nauseous, no major changes Review of Systems Review of Systems: All systems reviewed & are unremarkable except as noted in HPI and below Exam Const: General: comfortable and no acute distress HENMT: General nose exam: Normal nares present Eyes: General: appearance normal, both eyes and all related structures Neck: Neck: no JVD Resp: Auscultation: clear to auscultation bilaterally Cardio: Rate: regular rate Rhythm: regular rhythm GI: Inspection: non-distended GI Palp: Yes Soft to palpation Skin: General skin exam: normal color Neuro: General: gait normal Speech: normal speech Extrem: General: normal to inspection Psych: Mental Status: mental status grossly normal Objective Data Vital Signs Vital Signs: Vital Signs - 24 hr 06/29/22 19:28 06/30/22 05:46 06/30/22 09:59 Temperature 98.3 F 98.1 F Pulse Rate 75 90 Respiratory Rate 18 20 Blood Pressure 109/64 112/76 Pulse Oximetry 100 100 Oxygen Delivery Room Air Intake/Output Intake/Output: Intake & Output 06/27/22 06/28/22 06/29/22 06/30/22 23:59 23:59 23:59 23:59 Intake Total 3624 1270 2100 1000 Output Total 2800 Balance 824 1270 2100 1000 Meds/Results Medications: Active Medications Generic Name Dose Route Start Last Admin Trade Name Freq PRN Reason Stop Dose Admin Acetaminophen 1,000 mg 06/25/22 18:51 06/30/22 06:55 Acetaminophen 500 Mg Tablet PO 1,000 mg Q6H PRN Administration Pain RATED 1-3 or headache Diphenhydramine HCl 25 mg 06/25/22 18:53 06/30/22 07:17 Diphenhydramine Hcl Inj 50 Mg/Ml Vial IV PUSH 25 mg Q4H PRN Administration Itching Famotidine 20 mg 06/25/22 21:00 06/30/22 09:59 Famotidine 20 Mg/2 Ml Vial IV PUSH 20 mg Q12H NAVJOT Administration Fentanyl Citrate 50 mcg 06/28/22 16:15 06/30/22 09:59 Fentanyl Citrate Inj (*Crx) 100 Mcg/2 Ml Vial IV PUSH 50 mcg Q4H PRN Administration abdomina pain Potassium Cl/Dextrose/Lact Ringer's 1,000 mls @ 125 mls/hr 06/27/22 05:20 06/30/22 10:49 Kcl 20 Meq/D5lr IV CONT 125 mls/hr .Q8H NAVJOT Administration Nitrofurantoin Macrocrystals 100 mg 06/26/22 21:00 06/26/22 13:52 Nitrofurantoin Monohyd Macrocr 100 Mg Cap PO 100 mg Q12HR NAVJOT Administration Ondansetron HCl 8 mg 06/27/22 04:23 06/30/22 10:47 Ondansetron Inj 4 Mg/2 Ml Vial IV PUSH 8 mg Q6H PRN Administration Nausea if > 12 weeks gestation Sodium Chloride 10 ml 06/28/22 14:00 06/30/22 05:36 Saline Lock Flush IV PUSH Not Given Q8HR NAVJOT Sodium Chloride 10 ml 06/28/22 13:42 06/29/22 21:16 Saline Lock Flush IV PUSH 10 ml PRN PRN Administration Flush Sodium Chloride 20 ml 06/28/22 13:42 Saline Lock Flush IV PUSH PRN PRN after blood draws Radiology Results: ITS Impressions Obstetrics Ultrasound 06/25/22 12:32 IMPRESSION: 1. Intrauterine gestational sac with an estimated gestational age of 6 weeks and 1 day(s) (+/-) 4 day(s) and an estimated delivery date of 02/17/2023 based on mean sac diameter. pole not visualized which could be due to early . Upper Quadrant Ultrasound 06/27/22 08:29 IMPRESSION: 1: Normal limited abdominal ultrasound. Abdomen X-Ray
[2022-06-30 17:49] VITALS: BP 118/71; PULSE 73; RESP 14; TEMP 35.1; O2SAT 100
--- NOTE | 2022-06-30 18:15 | PC.NURSE ---
Pt is here for nausea and vomiting related to . Pt has experienced a significant amount of pain. Pt had father at bedside when pt was yelling out in pain. Pt stated pain was in her back, abdomen and up left side. Pt asked if we could just, suck everything out and Pt father asked if , cant you just do a to take the baby out? Dr. Paris was contacted and he ordered 100mcg of fentanyl. supervisor winding department was contacted due to dosing. Dr. Paris came to the floor and stated Yes, I want her to have it, we do it all of the time . He was asked if he wanted us to put her on a monitor and he stated, No, I don't want her to be on a monitor . Pt was given the dose of fentanyl and has calmed down and was able to get some rest. Pt continues to be monitored for pain and changes in status.
[2022-06-30 19:10] LABS: Hematocrit 33.5 % (37.0-47.0); Hemoglobin 10.7 g/dL (12.0-15.0); Mean Corpuscular HGB Conc 31.9 g/dl (32-36); Mean Corpuscular Hemoglobin 23.1 pg (26-34); Mean Corpuscular Volume 72.2 fl (80-100); Mean Platelet Volume 9.4 fl (7.4-10.4); Platelet Count Result 229 k/mm3 (150-375); Red Blood Count 4.64 M/mm3 (4.2-5.4); Red Cell Distribution Width 14.7 % (11.5-14.5); White Blood Count 12.9 K/mm3 (4.5-10.0)
[2022-06-30 19:22] LABS: Alanine Aminotransferase 10 U/L (6-35); Albumin Level 3.8 g/dL (3.5-5.1); Alkaline Phosphatase 58 U/L (38-126); Anion Gap 8 mmol/L (8-16); Aspartate Amino Transferase 15 U/L (14-36); Bilirubin,Total 0.5 mg/dL (0.2-1.3); Blood Urea Nitrogen 2 mg/dL (7-17); Calcium 8.5 mg/dL (8.4-10.2); Carbon Dioxide 26 mmol/L (22-30); Chloride 101 mmol/L (98-107); Estimated CRCL calculation 96 ml/min; Estimated Glomerular Filt Rate > 60; Glucose 103 mg/dL (65-110); Potassium 3.5 mmol/L (3.4-5.0); Sodium 135 mmol/L (137-145)
[2022-06-30 19:44] VITALS: BP 114/72; PULSE 78; RESP 18; TEMP 36.9; O2SAT 100
[2022-06-30 20:00] VITALS: PULSE 78; RESP 18; O2SAT 100
[2022-07-01] MEDS: fentaNYL CITRATE INJ (*CRX) 100 MCG/2 ML VIAL 50 MCG IV PUSH ×5 (03:04→20:57)
[2022-07-01 04:33] VITALS: BP 118/74; PULSE 78; RESP 18; TEMP 36.9; O2SAT 100
[2022-07-01] MEDS: ONDANSETRON INJ 4 MG/2 ML VIAL 8 MG IV PUSH ×3 (04:44→20:36)
[2022-07-01] MEDS: FAMOTIDINE 20 MG/2 ML VIAL IV PUSH ×2 (08:24→20:33)
--- NOTE | 2022-07-01 08:45 | P.PNIM_ITS ---
Progress Note: A&P Assessment and Plan (1) Hyperemesis gravidarum: Code(s): O21.0 - Mild hyperemesis gravidarum Status: Acute Assessment and Plan: * Found to be , about 6-8 weeks * Complaints of nausea, vomiting, and abdominal pain * OB and GI on the case * Could be related to , marijuana use, or possible colitis (2) Abdominal pain, generalized: Code(s): R10.84 - Generalized abdominal pain Status: Acute Assessment and Plan: * Unknown etiology at this point * Could be a colitis * Lactic normal at 0.8 * Abd xray only shows paucity of gas pattern * Could be an ileus * Might benefit from a NG tube * GI on board * Fentanyl added per Ob * Could be from constipation * Added miralax and colace (3) Marijuana user: Code(s): F12.90 - Cannabis use, unspecified, uncomplicated Status: Acute Assessment and Plan: * Could be causing symptoms * Has not used in 2 days (4) Hypokalemia: Code(s): E87.6 - Hypokalemia Status: Acute Assessment and Plan: * Was 2.9 upon arrival * Currently 3.5 * continue IV fluids with 20 of K * trend labs (5) Anemia: Code(s): D64.9 - Anemia, unspecified Status: Acute Assessment and Plan: * H/H stable at 10.7/33.5 * MCV low at 72.2 * Anemia labs no deficits noted, probably related to current * Recommend supplement if able * Trend labs (6) Leukocytosis: Code(s): D72.829 - Elevated white blood cell count, unspecified Status: Acute Assessment and Plan: * WBC seems stable at 12.9 * Continue to trend * No identifiable source of infection * it appears that OB has placed the patient on Macrobid Plan Some of this could be more of a mental status problem. She acts very sick however she had her hair braided yesterday. She does appear to be drinking. No vomit was noted in the trash can. Talked to her about having a bowel movement Time Spent With Patient Time with patient: Greater than 35 minutes Subjective Date/time seen: 07/01/22 08:45 Interval history: 07/01/22 0845 Patient appears to be resting comfortably. Patient states that she is still nauseated and vomiting and her abdomen still hurts. She denies any chest pain or shortness of breath. She states that her pain is still pelvic and radiates up the left side. I talked to her about having a bowel movement which she denies having a bowel movement since admission. Nurse states that she refused the suppository. Colace and MiraLax have been added to her Mar. 06/30/22 1330 Patient was okay when I walked in. It was reported that patient had been very dramatic especially while her dad was there. She states that her abdomen hurts a lot and she still very nauseous. She stated that she has not been able to tolerate any fluids or food. Pain medication has been increased. Labs remained stable at this time 06/29/22 10:00 Patient is a lot more calm today. She stated that her stomach does her she rates at a 9/10. She also stated that she has been nauseated and vomiting. She ate her clear liquids but stated that she threw all up. She does not feel any better however she does look better. She denies any chest pain, shortness of breath. she did state that her abdominal pain is on the lower abdomen more like pelvic pain and stated that it going up her left side. The regina
--- NOTE | 2022-07-01 08:45 | PM.IMPN ---
Progress Note: A&P Assessment and Plan (1) Hyperemesis gravidarum: Code(s): O21.0 - Mild hyperemesis gravidarum Status: Acute Assessment and Plan: Found to be , about 6-8 weeks Complaints of nausea, vomiting, and abdominal pain OB and GI on the case Could be related to , marijuana use, or possible colitis (2) Abdominal pain, generalized: Code(s): R10.84 - Generalized abdominal pain Status: Acute Assessment and Plan: Unknown etiology at this point Could be a colitis Lactic normal at 0.8 Abd xray only shows paucity of gas pattern Could be an ileus Might benefit from a NG tube GI on board Fentanyl added per Ob Could be from constipation Added miralax and colace (3) Marijuana user: Code(s): F12.90 - Cannabis use, unspecified, uncomplicated Status: Acute Assessment and Plan: Could be causing symptoms Has not used in 2 days (4) Hypokalemia: Code(s): E87.6 - Hypokalemia Status: Acute Assessment and Plan: Was 2.9 upon arrival Currently 3.5 continue IV fluids with 20 of K trend labs (5) Anemia: Code(s): D64.9 - Anemia, unspecified Status: Acute Assessment and Plan: H/H stable at 10.7/33.5 MCV low at 72.2 Anemia labs no deficits noted, probably related to current Recommend supplement if able Trend labs (6) Leukocytosis: Code(s): D72.829 - Elevated white blood cell count, unspecified Status: Acute Assessment and Plan: WBC seems stable at 12.9 Continue to trend No identifiable source of infection it appears that OB has placed the patient on Macrobid Plan Some of this could be more of a mental status problem. She acts very sick however she had her hair braided yesterday. She does appear to be drinking. No vomit was noted in the trash can. Talked to her about having a bowel movement Time Spent With Patient Time with patient: Greater than 35 minutes Subjective Date/time seen: 07/01/22 08:45 Interval history: 07/01/22 0845 Patient appears to be resting comfortably. Patient states that she is still nauseated and vomiting and her abdomen still hurts. She denies any chest pain or shortness of breath. She states that her pain is still pelvic and radiates up the left side. I talked to her about having a bowel movement which she denies having a bowel movement since admission. Nurse states that she refused the suppository. Colace and MiraLax have been added to her Mar. 06/30/22 1330 Patient was okay when I walked in. It was reported that patient had been very dramatic especially while her dad was there. She states that her abdomen hurts a lot and she still very nauseous. She stated that she has not been able to tolerate any fluids or food. Pain medication has been increased. Labs remained stable at this time 06/29/22 10:00 Patient is a lot more calm today. She stated that her stomach does her she rates at a 9/10. She also stated that she has been nauseated and vomiting. She ate her clear liquids but stated that she threw all up. She does not feel any better however she does look better. She denies any chest pain, shortness of breath. she did state that her abdominal pain is on the lower abdomen more like pelvic pain and stated that it going up her left side. The pain medication was ordered has been helpful. 06/28/22 0930 Belem Fink is a 32 year old female with no significant medical history that presented to the ED with complaints of severe nausea, and vomiting.? Patient was found to be ? a couple of days ago.? Since then she has been experience intense nausea, vomiting, and abdominal pain. ? patient stated that she has been dealing with this for about a week and half.? She also stated that she found out she was either Saturday or Saturday.? She rates her pain c
[2022-07-01] MEDS: DOCUSATE SODIUM 100 MG CAPSULE PO ×2 (09:55→20:33)
[2022-07-01] MEDS: polyethylene glycoL 3350 17 GM POWD.PACK PO (09:55)
[2022-07-01 10:19] LABS: Magnesium 1.7 mg/dL (1.6-2.3)
--- NOTE | 2022-07-01 12:25 | WPDGIPROGNO ---
Progress Note: A&P Assessment and Plan (1) Abdominal pain, generalized: Code(s): R10.84 - Generalized abdominal pain Status: Acute Assessment and Plan: unchanged supportive care encourage to eat (2) Hyperemesis gravidarum: Code(s): O21.0 - Mild hyperemesis gravidarum Status: Acute Assessment and Plan: medical support antiemetics prn (3) Marijuana user: Code(s): F12.90 - Cannabis use, unspecified, uncomplicated Status: Acute (4) Change in bowel habits: Code(s): R19.4 - Change in bowel habit Status: Acute Assessment and Plan: mostly constipation, still not a good BM Subjective Date/time seen: 07/01/22 12:25 Interval history: no major changes, still nauseous with poor appetite. Review of Systems Review of Systems: All systems reviewed & are unremarkable except as noted in HPI and below Exam Const: General: comfortable and no acute distress HENMT: General nose exam: Normal nares present Eyes: General: appearance normal, both eyes and all related structures Neck: Neck: no JVD Resp: Auscultation: clear to auscultation bilaterally Cardio: Rate: regular rate Rhythm: regular rhythm GI: Inspection: non-distended GI Palp: Yes Soft to palpation Skin: General skin exam: normal color Neuro: Speech: normal speech Extrem: General: normal to inspection Psych: Affect: Sad affect present Objective Data Vital Signs Vital Signs: Vital Signs - 24 hr 06/30/22 17:49 06/30/22 19:44 06/30/22 20:00 Temperature 95.2 F L 98.5 F Pulse Rate 73 78 78 Respiratory Rate 14 18 18 Blood Pressure 118/71 114/72 Pulse Oximetry 100 100 100 Oxygen Delivery Room Air 07/01/22 04:33 07/01/22 08:22 Temperature 98.4 F Pulse Rate 78 Respiratory Rate 18 Blood Pressure 118/74 Pulse Oximetry 100 Oxygen Delivery Room Air Intake/Output Intake/Output: Intake & Output 06/28/22 06/29/22 06/30/22 07/01/22 23:59 23:59 23:59 23:59 Intake Total 1270 2100 1999 Balance 1270 2100 1999 Meds/Results Medications: Active Medications Generic Name Dose Route Start Last Admin Trade Name Freq PRN Reason Stop Dose Admin Acetaminophen 1,000 mg 06/25/22 18:51 06/30/22 06:55 Acetaminophen 500 Mg Tablet PO 1,000 mg Q6H PRN Administration Pain RATED 1-3 or headache Diphenhydramine HCl 25 mg 06/25/22 18:53 06/30/22 07:17 Diphenhydramine Hcl Inj 50 Mg/Ml Vial IV PUSH 25 mg Q4H PRN Administration Itching Docusate Sodium 100 mg 07/01/22 09:00 07/01/22 09:55 Docusate Sodium 100 Mg Capsule PO 100 mg Q12HR NAVJOT Administration Famotidine 20 mg 06/25/22 21:00 07/01/22 08:24 Famotidine 20 Mg/2 Ml Vial IV PUSH 20 mg Q12H NAVJOT Administration Fentanyl Citrate 50 mcg 06/28/22 16:15 07/01/22 12:09 Fentanyl Citrate Inj (*Crx) 100 Mcg/2 Ml Vial IV PUSH 50 mcg Q4H PRN Administration abdomina pain Potassium Cl/Dextrose/Lact Ringer's 1,000 mls @ 125 mls/hr 06/27/22 05:20 06/30/22 22:03 Kcl 20 Meq/D5lr IV CONT Not Given .Q8H NAVJOT Nitrofurantoin Macrocrystals 100 mg 06/26/22 21:00 06/26/22 13:52 Nitrofurantoin Monohyd Macrocr 100 Mg Cap PO 100 mg Q12HR NAVJOT Administration Ondansetron HCl 8 mg 06/27/22 04:23 07/01/22 12:09 Ondansetron Inj 4 Mg/2 Ml Vial IV PUSH 8 mg Q6H PRN Administration Nausea if > 12 weeks gestation Polyethylene Glycol 17 gm 07/01/22 09:00 07/01/22 09:55 Polyethylene Glycol 3350 17 Gm Powd.Pack PO 17 gm QAM NAVJOT Administration Sodium Chloride 10 ml 06/28/22 14:00 06/30/22 22:00 Saline Lock Flush IV PUSH Not Given Q8HR NAVJOT Sodium Chloride 10 ml 06/28/22 13:42 06/29/22 21:16 Saline Lock Flush IV PUSH 10 ml PRN PRN Administration Flush Sodium Chloride 20 ml 06/28/22 13:42 Saline Lock Flush IV PUSH PRN PRN after blood draws Radiology Results: ITS Impressions Obstetrics Ul
--- NOTE | 2022-07-01 14:04 | PM.OBPNVD ---
OB - PN: Subj Subjective Date/time seen: 07/01/22 14:04Continues to vomit and feel poorly, intermittent abdominal pain, no bowel movement, Interval history: no major changes, still nauseous with poor appetite. OB - PN: Obj Data Labs CBC & Chem 7: 06/30/22 19:00 06/30/22 19:00 Labs: Laboratory Results - last 24 hr 06/30/22 06/30/22 07/01/22 19:00 19:00 08:44 WBC 12.9 H RBC 4.64 Hgb 10.7 L Hct 33.5 L MCV 72.2 L MCH 23.1 L MCHC 31.9 L RDW 14.7 H Plt Count 229 MPV 9.4 Sodium 135 L Potassium 3.5 Chloride 101 Carbon Dioxide 26 Anion Gap 8 BUN 2 L Creatinine 0.60 L Estim Creat Clear Calc 96 Estimated GFR > 60 Glucose 103 Calcium 8.5 Magnesium 1.7 Total Bilirubin 0.5 AST 15 ALT 10 Alkaline Phosphatase 58 Total Protein 7.0 Albumin 3.8 OB - PN A/P Assessment and Plan (1) Hyperemesis gravidarum: Code(s): O21.0 - Mild hyperemesis gravidarum Status: Acute (2) Abdominal pain, generalized: Code(s): R10.84 - Generalized abdominal pain Status: Acute Assessment and Plan: this patient is a 32-year-old female multiparous at 6 weeks gestation with hyperemesis and abdominal pain. She continues to hav.e vomiting. She is not tolerating any p.o. food or liquids. She has not had a bowel movement in almost a week or maybe a week. Finesse try a soapsuds enema and milk of magnesium , she is going is sip on that for a time. will continue to observe. Eager to discharge. Await her tolerating p.o.. Time Spent With Patient Time: Total time spent is greater than 50% in coordination of care (as documented) at patient's floor/unit and/or counseling patient: Exam Const: General: cooperative, healthy appearing, comfortable and no acute distress; No confusion Orientation/consciousness: oriented to person, oriented to place, oriented to time and No confusion HENMT: Head: normal to inspection Ears: external ears normal General nose exam: Normal external nose present Face and sinus: normal facial exam Eyes: General: appearance normal, both eyes and all related structures Neck: Neck: normal visual inspection, trachea midline and supple Resp: Auscultation: clear to auscultation bilaterally, no crackles, no rales, no rhonchi and no wheezes Cardio: Rate: regular rate Rhythm: regular rhythm Heart sounds: no click, no murmurs and no rubs GI: GI Palp: No abdominal tenderness, No Soft to palpation, No Tenderness to palpation present (GI) and No Palpable mass present Auscultation: normal bowel sounds Skin: General skin exam: normal color and no rashes or lesions noted Neuro: General: oriented to person, oriented to place, oriented to time and No confusion Speech: No Abnormal speech present Extrem: General: normal to inspection, no joint enlargement, no clubbing, cyanosis or edema, no pedal edema and no calf tenderness Psych: Appearance: grossly normal Mental Status: mental status grossly normal Speech and movement: Normal speech and movement present
--- NOTE | 2022-07-01 14:59 | PC.NURSE ---
Pt shows fewer signs of pain than she did yesterday. Pt still had no bm as of this morning. Pt was given a mixture of prune juice and apple juice this morning along with mirilax and pt did not drink either of these. Pt did take colace po. Dr. Paris came up to see pt and ordered a soapsuds enema and milk of magnesia q4h. Pt has been instructed on these orders and is compliant. Pt was given soapsuds enema and 450 mL was administered. Pt immediately felt the urge to have a bowel movement. Pt had liquid bm with a few solid pieces of stool. Pt states she feels a little better. Will continue to monitor pt.
[2022-07-01 16:00] VITALS: BP 110/47; PULSE 95; RESP 20; TEMP 35.9; O2SAT 100
[2022-07-01] MEDS: MAGNESIUM HYDROXIDE SUSP 30 ML UDC PO (16:23)
[2022-07-01] MEDS: diphenhydrAMINE HCl INJ 50 MG/ML VIAL 25 MG IV PUSH (16:23)
[2022-07-01 20:28] VITALS: BP 107/50; PULSE 71; RESP 18; TEMP 36.6; O2SAT 100
[2022-07-01] MEDS: SALINE LOCK FLUSH 10 ML IV PUSH (21:00)
[2022-07-02] MEDS: fentaNYL CITRATE INJ (*CRX) 100 MCG/2 ML VIAL 50 MCG IV PUSH ×6 (00:58→22:30)
[2022-07-02] MEDS: ALUM/CAMP/MENTH/PHENOL/SALICY (CARMEX) 7.5 GM JAR 1 APPLIC TOPICAL (00:58)
[2022-07-02] MEDS: diphenhydrAMINE HCl INJ 50 MG/ML VIAL 25 MG IV PUSH ×4 (05:36→22:56)
[2022-07-02] MEDS: ONDANSETRON INJ 4 MG/2 ML VIAL 8 MG IV PUSH ×3 (05:37→20:26)
[2022-07-02] MEDS: MAGNESIUM HYDROXIDE SUSP 30 ML UDC PO ×2 (05:37→14:22)
[2022-07-02] MEDS: SALINE LOCK FLUSH 10 ML IV PUSH ×4 (05:37→21:49)
[2022-07-02 05:47] LABS: Basophils Percent Auto 0.2 % (0.2-1.2); Eosinophils Absolute Auto 0.1 K/mm3 (0-0.3); Hematocrit 33.2 % (37.0-47.0); Hemoglobin 10.6 g/dL (12.0-15.0); Immature Granulocyte Absolute 0.02 K/mm3 (0.00-0.031); Immature Granulocyte Percent A 0.2 % (0-0.5); Lymphocytes Absolute Auto 2.28 K/mm3 (0.9-3.2); Lymphocytes Percent Auto 22.1 % (18.3-44.2); Mean Corpuscular HGB Conc 31.9 g/dl (32-36); Mean Corpuscular Hemoglobin 23.1 pg (26-34); Mean Corpuscular Volume 72.3 fl (80-100); Mean Platelet Volume 9.5 fl (7.4-10.4); Monocytes Absolute Auto 0.7 K/mm3 (0.1-0.6); Monocytes Percent Auto 7.2 % (2.6-8.5); Neutrophils Absolute Auto 7.2 K/mm3 (1.3-6.7); Neutrophils Percent Auto 69.3 % (45.5-73.1); Platelet Count Result 224 k/mm3 (150-375); Red Blood Count 4.59 M/mm3 (4.2-5.4); Red Cell Distribution Width 14.8 % (11.5-14.5); White Blood Count 10.3 K/mm3 (4.5-10.0)
[2022-07-02 05:57] LABS: Alanine Aminotransferase 9 U/L (6-35); Albumin Level 3.4 g/dL (3.5-5.1); Alkaline Phosphatase 53 U/L (38-126); Anion Gap 1 mmol/L (8-16); Aspartate Amino Transferase 13 U/L (14-36); Bilirubin,Total 0.4 mg/dL (0.2-1.3); Calcium 8.4 mg/dL (8.4-10.2); Carbon Dioxide 26 mmol/L (22-30); Chloride 101 mmol/L (98-107); Estimated CRCL calculation 83 ml/min; Estimated Glomerular Filt Rate > 60; Glucose 106 mg/dL (65-110); Magnesium 1.8 mg/dL (1.6-2.3); Potassium 3.7 mmol/L (3.4-5.0); Sodium 128 mmol/L (137-145)
[2022-07-02 05:59] VITALS: BP 114/63; PULSE 67; RESP 16; TEMP 36.8; O2SAT 100
[2022-07-02 07:08] LABS: Blood Urea Nitrogen < 2 mg/dL (7-17)
--- NOTE | 2022-07-02 07:15 | WPDGIPROGNO ---
Progress Note: A&P Assessment and Plan (1) Hyperemesis gravidarum: Code(s): O21.0 - Mild hyperemesis gravidarum Status: Acute Assessment and Plan: she is on Zofran and promethazine (2) Abdominal pain, generalized: Code(s): R10.84 - Generalized abdominal pain Status: Acute Assessment and Plan: She is mostly tender in the lower abdomen. I suspect that she has some sort of colitis. I will check a lactic acid level to make sure that she does not have ischemic bowel issues but that would be rare at her age. because of her , we are limited in terms of imaging studies. Perhaps ultrasound of the pelvis would be beneficial as most of her pain is infraumbilical and suprapubic 07/02/2022 stool studies have been sent and are pending including cultures, calprotectin, fecal leukocytes. (3) Marijuana user: Code(s): F12.90 - Cannabis use, unspecified, uncomplicated Status: Acute Assessment and Plan: her symptoms could be due to cannabinoid syndrome, although I think her pain is too localized to the lower abdomen. nevertheless, nausea, vomiting, and abdominal pain are the typical features of regular marijuana use (4) Change in bowel habits: Code(s): R19.4 - Change in bowel habit Status: Acute Assessment and Plan: Her stools have been very soft and narrow this week. She has had frequent bowel movements but has not had blood in her stools. I will send stools for fecal leukocytes as well as for cultures. 07/02/2022 stool studies pending (5) Leukocytosis: Code(s): D72.829 - Elevated white blood cell count, unspecified Status: Acute Assessment and Plan: 07/02/22 down to 10,300. Plan I told her that let us know if and when she would like to try something else to eat such as toast, crackers and or solid food. She says maybe later but not right now Subjective Date/time seen: 07/02/22 07:15 she states he is still nauseated and does not wish to have any thing to eat. He denies vomiting. After Dulcolax and enema she did have stools. Consequently stool specimens have been sent for previously ordered studies to rule out infectious etiology. I however doubt that she has an infectious colitis she states her pain is still primarily in the pelvic area, Constant, but improving. Review of Systems Review of Systems: All systems reviewed & are unremarkable except as noted in HPI and below Exam Const: General: alert Orientation/consciousness: patient oriented x3 Resp: Auscultation: clear to auscultation bilaterally Cardio: Rhythm: regular rhythm GI: GI Palp: Yes Soft to palpation and No Tenderness to palpation present (GI) Auscultation: normal bowel sounds Neuro: General: patient oriented x3 Objective Data Vital Signs Vital Signs: Vital Signs - 24 hr 07/01/22 08:22 07/01/22 16:00 07/01/22 20:28 Temperature 35.9 C L 36.6 C Pulse Rate 95 71 Respiratory Rate 20 18 Blood Pressure 110/47 L 107/50 L Pulse Oximetry 100 100 Oxygen Delivery Room Air 07/02/22 05:59 Temperature 36.8 C Pulse Rate 67 Respiratory Rate 16 Blood Pressure 114/63 Pulse Oximetry 100 Oxygen Delivery Intake/Output Intake/Output: Intake & Output 06/29/22 06/30/22 07/01/22 07/02/22 23:59 23:59 23:59 23:59 Intake Total 2099 1999 1000 1000 Balance 2099 1999 1000 1000 Meds/Results Medications: Active Medications Generic Name Dose Route Start Last Admin Trade Name Freq PRN Reason Stop Dose Admin Acetaminophen 1,000 mg 06/25/22 18:51 06/30/22 06:55 Acetaminophen 500 Mg Tablet PO 1,000 mg Q6H PRN Administration Pain RATED 1-3 or headache Camphor/Menthol/Phenol 1 applic 07/02/22 00:24 07/02/22 00:58 Alum/Camp/Menth/Phenol/Salicy (Carmex) 7.5 Gm Jar TOPICAL 1 applic PRN PRN Administration dry lips Diphenhydramine HCl 25 mg 06/25/22 18:53 07/02/22 05:36 Diphenhydramine Hcl Inj 50 Mg/
[2022-07-02] MEDS: DOCUSATE SODIUM 100 MG CAPSULE PO ×2 (08:08→20:26)
[2022-07-02] MEDS: polyethylene glycoL 3350 17 GM POWD.PACK PO (08:08)
[2022-07-02] MEDS: FAMOTIDINE 20 MG/2 ML VIAL IV PUSH ×2 (08:08→20:26)
--- NOTE | 2022-07-02 08:27 | PM.OBPNVD ---
OB - PN: Subj Subjective Date/time seen: 07/02/22 08:27 patient does not want to be discharged today. She is tolerating small amounts of liquids. She did have a bowel movement yesterday. Continues for nausea some vomiting. She is passing flatus. She is having some intermittent abdominal pain. She is worried about bouncing back if she is discharged. Interval history: no major changes, still nauseous with poor appetite. OB - PN: Obj Data Labs CBC & Chem 7: 07/02/22 05:26 07/02/22 05:26 Labs: Laboratory Results - last 24 hr 07/01/22 07/02/22 07/02/22 08:44 05:26 05:26 WBC 10.3 H RBC 4.59 Hgb 10.6 L Hct 33.2 L MCV 72.3 L MCH 23.1 L MCHC 31.9 L RDW 14.8 H Plt Count 224 MPV 9.5 Immature Gran % (Auto) 0.2 Neut % (Auto) 69.3 Lymph % (Auto) 22.1 Pepin % (Auto) 7.2 Eos % (Auto) 1.0 Baso % (Auto) 0.2 Lymph # (Auto) 2.28 Pepin # (Auto) 0.7 H Eos # (Auto) 0.1 Baso # (Auto) 0.0 Abs Immat Gran (auto) 0.02 Absolute Neuts (auto) 7.2 H Absolute Nucleated RBC 0.0 Nucleated RBC % 0.0 Sodium 128 L Potassium 3.7 Chloride 101 Carbon Dioxide 26 Anion Gap 1 L BUN < 2 L Creatinine 0.70 Estim Creat Clear Calc 83 Estimated GFR > 60 Glucose 106 Calcium 8.4 Magnesium 1.7 1.8 Total Bilirubin 0.4 AST 13 L ALT 9 Alkaline Phosphatase 53 Total Protein 6.0 L Albumin 3.4 L OB - PN A/P Assessment and Plan (1) Hyperemesis gravidarum: Code(s): O21.0 - Mild hyperemesis gravidarum Status: Acute Assessment and Plan: 32-year-old female at about 7 weeks gestation with hyperemesis, abdominal pain. Patient does not want to be discharged today. She is tolerating small amounts of liquids. She did have a bowel movement yesterday. Continues for nausea some vomiting. She is pasing some flatus. We will continue our current therapy. She was instructed to take oral medical magnesium. She is only sitting small amounts. She is not willing to help herself. She is not following instruction. (2) Abdominal pain, generalized: Code(s): R10.84 - Generalized abdominal pain Status: Acute (3) First trimester : Code(s): Z34.91 - Encounter for supervision of normal , unspecified, first trimester Status: Acute Time Spent With Patient Time: Total time spent is greater than 50% in coordination of care (as documented) at patient's floor/unit and/or counseling patient: Exam Const: General: cooperative, healthy appearing, comfortable and no acute distress; No confusion Orientation/consciousness: oriented to person, oriented to place, oriented to time and No confusion HENMT: Head: normal to inspection Ears: external ears normal General nose exam: Normal external nose present Face and sinus: normal facial exam Eyes: General: appearance normal, both eyes and all related structures Neck: Neck: normal visual inspection, trachea midline and supple Resp: Auscultation: clear to auscultation bilaterally, no crackles, no rales, no rhonchi and no wheezes Cardio: Rate: regular rate Rhythm: regular rhythm Heart sounds: no click, no murmurs and no rubs GI: GI Palp: No abdominal tenderness, No Soft to palpation, No Tenderness to palpation present (GI) and No Palpable mass present Auscultation: normal bowel sounds Skin: General skin exam: normal color and no rashes or lesions noted Neuro: General: oriented to person, oriented to place, oriented to time and No confusion Speech: No Abnormal speech present Extrem: General: normal to inspection, no joint enlargement, no clubbing, cyanosis or edema, no pedal edema and no calf tenderness Psych: Appearance: grossly normal Mental Status: mental status grossly normal Speech and movement: Normal speech and movement present
--- NOTE | 2022-07-02 08:45 | P.PNIM_ITS ---
Progress Note: A&P Assessment and Plan (1) Hyperemesis gravidarum: Code(s): O21.0 - Mild hyperemesis gravidarum Status: Acute Assessment and Plan: * Found to be , about 6-8 weeks * Complaints of nausea, vomiting, and abdominal pain * OB and GI on the case * Could be related to , marijuana use, or possible colitis (2) Abdominal pain, generalized: Code(s): R10.84 - Generalized abdominal pain Status: Acute Assessment and Plan: * Unknown etiology at this point * Could be a colitis * Lactic normal at 0.8 * Abd xray only shows paucity of gas pattern * Could be an ileus * Might benefit from a NG tube * GI on board * Fentanyl added per Ob * Could be from constipation * Added miralax and colace * Add tums for possible GERD (3) Marijuana user: Code(s): F12.90 - Cannabis use, unspecified, uncomplicated Status: Acute Assessment and Plan: * Could be causing symptoms * Has not used in 2 days (4) Hypokalemia: Code(s): E87.6 - Hypokalemia Status: Acute Assessment and Plan: * Was 2.9 upon arrival * Currently 3.7 * continue IV fluids with 20 of K * trend labs (5) Anemia: Code(s): D64.9 - Anemia, unspecified Status: Acute Assessment and Plan: * H/H stable at 10.6/33.2 * MCV low at 72.3 * Anemia labs no deficits noted, probably related to current * Recommend supplement if able * Trend labs (6) Leukocytosis: Code(s): D72.829 - Elevated white blood cell count, unspecified Status: Acute Assessment and Plan: * WBC seems stable at 10.3 * Continue to trend * No identifiable source of infection * it appears that OB has placed the patient on Macrobid Plan Suspect GERD with the pain and burning that is radiating up to her chest. Add tums Time Spent With Patient Time with patient: Greater than 35 minutes Subjective Date/time seen: 07/02/22 08:45 Interval history: 07/02/22 0845 Patient seems to be resting comfortably. She did state that her abdominal pain is pelvic however does radiate up her left side but last night it was radiating up into her chest. It almost sounds like GERD. She did state that she had a little bit of a bowel movement but it was not enough. She denies any shortness of breath. She states she has been walking and that she feels like she has a l ittle bit numb when she gets up which is probably from Laying in the bed. She did state that she was trying to eat some stuff and she is still getting nauseous. Sodium was low today at 128 giving her fluid bolus. 07/01/22 0845 Patient appears to be resting comfortably. Patient states that she is still nauseated and vomiting and her abdomen still hurts. She denies any chest pain or shortness of breath. She states that her pain is still pelvic and radiates up the left side. I talked to her about having a bowel movement which she denies having a bowel movement since admission. Nurse states that she refused the suppository. Colace and MiraLax have been added to her Mar. 06/30/22 1330 Patient was okay when I walked in. It was reported that patient had been very dramatic especially while her dad was there. She states that her abdomen hurts a lot and she still very nauseous. She stated that she has not been able to tolerate any fluids or food. Pain medication has been incre
--- NOTE | 2022-07-02 08:45 | PM.IMPN ---
Progress Note: A&P Assessment and Plan (1) Hyperemesis gravidarum: Code(s): O21.0 - Mild hyperemesis gravidarum Status: Acute Assessment and Plan: Found to be , about 6-8 weeks Complaints of nausea, vomiting, and abdominal pain OB and GI on the case Could be related to , marijuana use, or possible colitis (2) Abdominal pain, generalized: Code(s): R10.84 - Generalized abdominal pain Status: Acute Assessment and Plan: Unknown etiology at this point Could be a colitis Lactic normal at 0.8 Abd xray only shows paucity of gas pattern Could be an ileus Might benefit from a NG tube GI on board Fentanyl added per Ob Could be from constipation Added miralax and colace Add tums for possible GERD (3) Marijuana user: Code(s): F12.90 - Cannabis use, unspecified, uncomplicated Status: Acute Assessment and Plan: Could be causing symptoms Has not used in 2 days (4) Hypokalemia: Code(s): E87.6 - Hypokalemia Status: Acute Assessment and Plan: Was 2.9 upon arrival Currently 3.7 continue IV fluids with 20 of K trend labs (5) Anemia: Code(s): D64.9 - Anemia, unspecified Status: Acute Assessment and Plan: H/H stable at 10.6/33.2 MCV low at 72.3 Anemia labs no deficits noted, probably related to current Recommend supplement if able Trend labs (6) Leukocytosis: Code(s): D72.829 - Elevated white blood cell count, unspecified Status: Acute Assessment and Plan: WBC seems stable at 10.3 Continue to trend No identifiable source of infection it appears that OB has placed the patient on Macrobid Plan Suspect GERD with the pain and burning that is radiating up to her chest. Add tums Time Spent With Patient Time with patient: Greater than 35 minutes Subjective Date/time seen: 07/02/22 08:45 Interval history: 07/02/22 0845 Patient seems to be resting comfortably. She did state that her abdominal pain is pelvic however does radiate up her left side but last night it was radiating up into her chest. It almost sounds like GERD. She did state that she had a little bit of a bowel movement but it was not enough. She denies any shortness of breath. She states she has been walking and that she feels like she has a little bit numb when she gets up which is probably from Laying in the bed. She did state that she was trying to eat some stuff and she is still getting nauseous. Sodium was low today at 128 giving her fluid bolus. 07/01/22 0845 Patient appears to be resting comfortably. Patient states that she is still nauseated and vomiting and her abdomen still hurts. She denies any chest pain or shortness of breath. She states that her pain is still pelvic and radiates up the left side. I talked to her about having a bowel movement which she denies having a bowel movement since admission. Nurse states that she refused the suppository. Colace and MiraLax have been added to her Mar. 06/30/22 1330 Patient was okay when I walked in. It was reported that patient had been very dramatic especially while her dad was there. She states that her abdomen hurts a lot and she still very nauseous. She stated that she has not been able to tolerate any fluids or food. Pain medication has been increased. Labs remained stable at this time 06/29/22 10:00 Patient is a lot more calm today. She stated that her stomach does her she rates at a 9/10. She also stated that she has been nauseated and vomiting. She ate her clear liquids but stated that she threw all up. She does not feel any better however she does look better. She denies any chest pain, shortness of breath. she did state that her abdominal pain is on the lower abdomen more like pelvic pain and stated that it going up her left side. The pain medication was or
[2022-07-02] MEDS: SODIUM CHLORIDE 0.9% IV 250 ML 100 ML IV CONT (09:42)
[2022-07-02 14:00] VITALS: BP 109/67; PULSE 72; RESP 14; TEMP 36.9; O2SAT 100
[2022-07-02] MEDS: ACETAMINOPHEN 500 MG TABLET 1000 MG PO (14:30)
[2022-07-02] MEDS: CALCIUM CARBONATE (TUMS) 500 MG (200 MG ELEMENTAL) PO (18:25)
[2022-07-02 21:35] VITALS: BP 104/47; PULSE 82; RESP 16; TEMP 36.6; O2SAT 100
[2022-07-03] MEDS: fentaNYL CITRATE INJ (*CRX) 100 MCG/2 ML VIAL 50 MCG IV PUSH ×2 (02:58→08:04)
[2022-07-03] MEDS: diphenhydrAMINE HCl INJ 50 MG/ML VIAL 25 MG IV PUSH ×2 (03:04→08:04)
[2022-07-03] MEDS: ONDANSETRON INJ 4 MG/2 ML VIAL 8 MG IV PUSH (04:30)
[2022-07-03] MEDS: CALCIUM CARBONATE (TUMS) 500 MG (200 MG ELEMENTAL) PO (04:36)
[2022-07-03 04:45] LABS: Basophils Percent Auto 0.2 % (0.2-1.2); Eosinophils Absolute Auto 0.1 K/mm3 (0-0.3); Eosinophils Percent Auto 1.2 % (0-4.4); Hematocrit 34.1 % (37.0-47.0); Hemoglobin 10.8 g/dL (12.0-15.0); Immature Granulocyte Absolute 0.04 K/mm3 (0.00-0.031); Immature Granulocyte Percent A 0.4 % (0-0.5); Lymphocytes Absolute Auto 1.97 K/mm3 (0.9-3.2); Lymphocytes Percent Auto 19.7 % (18.3-44.2); Mean Corpuscular HGB Conc 31.7 g/dl (32-36); Mean Corpuscular Hemoglobin 23.4 pg (26-34); Mean Platelet Volume 11.3 fl (7.4-10.4); Monocytes Absolute Auto 0.8 K/mm3 (0.1-0.6); Neutrophils Percent Auto 70.5 % (45.5-73.1); Platelet Count Result 268 k/mm3 (150-375); Red Blood Count 4.61 M/mm3 (4.2-5.4)
[2022-07-03 04:54] LABS: Alanine Aminotransferase 9 U/L (6-35); Albumin Level 3.6 g/dL (3.5-5.1); Alkaline Phosphatase 53 U/L (38-126); Anion Gap 9 mmol/L (8-16); Aspartate Amino Transferase 17 U/L (14-36); Bilirubin,Total 0.4 mg/dL (0.2-1.3); Calcium 9.2 mg/dL (8.4-10.2); Carbon Dioxide 28 mmol/L (22-30); Chloride 97 mmol/L (98-107); Estimated CRCL calculation 83 ml/min; Estimated Glomerular Filt Rate > 60; Glucose 108 mg/dL (65-110); Sodium 134 mmol/L (137-145)
[2022-07-03] MEDS: SALINE LOCK FLUSH 10 ML IV PUSH (05:09)
[2022-07-03 05:28] LABS: Blood Urea Nitrogen < 2 mg/dL (7-17)
[2022-07-03 06:00] VITALS: BP 103/59; PULSE 72; RESP 14; TEMP 36.6; O2SAT 100
[2022-07-03] MEDS: DOCUSATE SODIUM 100 MG CAPSULE PO (08:04)
[2022-07-03] MEDS: polyethylene glycoL 3350 17 GM POWD.PACK PO (08:04)
[2022-07-03] MEDS: FAMOTIDINE 20 MG/2 ML VIAL IV PUSH (08:05)
--- NOTE | 2022-07-03 08:54 | PM.OBPNVD ---
OB - PN: Jacob Subjective Date/time seen: 07/03/22 08:54 Patient is resting comfortably, she states that she has pain, question the level of her pain, I believe there is some secondary gain she seeks year in this admission at this point. Staff has not seen her in pain and some time with the exception of when her father's present. She is refusing really to treat constipation by taking milk of magnesium. She is tolerating liquids. She will follow-up in 1 week. Antiemetics will be sent to her pharmacy. Interval history: 07/02/22 0845 Patient seems to be resting comfortably. She did state that her abdominal pain is pelvic however does radiate up her left side but last night it was radiating up into her chest. It almost sounds like GERD. She did state that she had a little bit of a bowel movement but it was not enough. She denies any shortness of breath. She states she has been walking and that she feels like she has a little bit numb when she gets up which is probably from Laying in the bed. She did state that she was trying to eat some stuff and she is still getting nauseous. Sodium was low today at 128 giving her fluid bolus. 07/01/22 0845 Patient appears to be resting comfortably. Patient states that she is still nauseated and vomiting and her abdomen still hurts. She denies any chest pain or shortness of breath. She states that her pain is still pelvic and radiates up the left side. I talked to her about having a bowel movement which she denies having a bowel movement since admission. Nurse states that she refused the suppository. Colace and MiraLax have been added to her Mar. 06/30/22 1330 Patient was okay when I walked in. It was reported that patient had been very dramatic especially while her dad was there. She states that her abdomen hurts a lot and she still very nauseous. She stated that she has not been able to tolerate any fluids or food. Pain medication has been increased. Labs remained stable at this time 06/29/22 10:00 Patient is a lot more calm today. She stated that her stomach does her she rates at a 9/10. She also stated that she has been nauseated and vomiting. She ate her clear liquids but stated that she threw all up. She does not feel any better however she does look better. She denies any chest pain, shortness of breath. she did state that her abdominal pain is on the lower abdomen more like pelvic pain and stated that it going up her left side. The pain medication was ordered has been helpful. 06/28/22 0930 Belem Fink is a 32 year old female with no significant medical history that presented to the ED with complaints of severe nausea, and vomiting.? Patient was found to be ? a couple of days ago.? Since then she has been experience intense nausea, vomiting, and abdominal pain. ? patient stated that she has been dealing with this for about a week and half.? She also stated that she found out she was either Saturday or Saturday.? She rates her pain currently at an 8/10 and states that his generalized pain throughout her abdomen.? She still vomiting and is currently a clear frothy vomit.? She does state that she has headaches with weakness and fatigue.? She has shortness of breath with pain and chills.? She stated that her vomiting is been worse last couple days.? She understands she can not have any pain medicine however she does want something to help her relax like Benadryl.? Benadryl is currently on her Mar and? Asked the nurse to give her some Benadryl as she is thrashing around in the bed and screaming incomplete discomfort and pain.? She currently is a poor historian which seems more likely due to the pain. OB - PN: Obj Data Labs CBC & Chem 7: 07/03/22 04:15 07/03/22 04:15 Labs: Laboratory Results - last 24 hr 07/03/22 07/03/22 04:15 04:15 WBC 10.0 RBC 4.61 Hgb 10.8 L Hct 34.1 L MCV 74.0 L MCH 23.4 L MCHC 31.7 L RDW 15.0 H
--- NOTE | 2022-07-03 08:58 | PM.DS ---
DS: Admitting Diagnosis Discharge Date July 03, 2022 Admitting Diagnosis hyperemesis, abdominal pain DS: Discharge Diagnosis Discharge Diagnosis (1) Hyperemesis gravidarum: Code(s): O21.0 - Mild hyperemesis gravidarum Status: Acute (2) Abdominal pain, generalized: Code(s): R10.84 - Generalized abdominal pain Status: Acute DS: Summary Hospital Course Hospital Course: patient is a 32-year-old multiparous female at approximately 7 weeks gestation who presented emergency department with abdominal pain and hyperemesis. She was admitted. She had intractable vomiting initially. And over the course of 1 week her nausea vomiting quickly waned. She had only intermittent episodes of abdominal pain that worsened when people present in the room. Supportive care was applied throughout her stay included antiemetics IV fluids and pain medication. There appeared to be some secondary gain from her prolonging her stay. Discharged home on hospital day 7. Time Spent with Patient Time attestation: Total time spent providing and/or coordinating discharge services: DS: Data Data Completed and Pending Labs on day of discharge: Labs from last 24 hours 07/03/22 07/03/22 04:15 04:15 WBC 10.0 RBC 4.61 Hgb 10.8 L Hct 34.1 L MCV 74.0 L MCH 23.4 L MCHC 31.7 L RDW 15.0 H Plt Count 268 MPV 11.3 H Immature Gran % (Auto) 0.4 Neut % (Auto) 70.5 Lymph % (Auto) 19.7 Luce % (Auto) 8.0 Eos % (Auto) 1.2 Baso % (Auto) 0.2 Lymph # (Auto) 1.97 Luce # (Auto) 0.8 H Eos # (Auto) 0.1 Baso # (Auto) 0.0 Abs Immat Gran (auto) 0.04 H Absolute Neuts (auto) 7.0 H Absolute Nucleated RBC 0.0 Nucleated RBC % 0.0 Sodium 134 L Potassium 4.0 Chloride 97 L Carbon Dioxide 28 Anion Gap 9 BUN < 2 L Creatinine 0.70 Estim Creat Clear Calc 83 Estimated GFR > 60 Glucose 108 Calcium 9.2 Magnesium 2.0 Total Bilirubin 0.4 AST 17 ALT 9 Alkaline Phosphatase 53 Total Protein 7.0 Albumin 3.6 Discharge Plan Discharge Consulting providers: Saulo Jimenez ; Ryne Barrett ; Darlene Florez Discharging Clinician: [place] Patient Disposition: Home, Self-Care Activity: pelvic rest Diet: as tolerated Patient Instructions: Antibiotic Form Stand Alone Forms: General Discharge Information Follow-up/Referrals: PHYSICIAN,AIX SYSTEM ADMINISTRATOR [Primary Care Provider] - Discharge Medications: New ondansetron 8 mg film 8 mg PO Q8H Qty: 30 3RF No Action No Home Medications Date of admission: 06/27/22 11:19 Primary Care Provider: PHYSICIAN,AIX SYSTEM ADMINISTRATOR Admitting Provider: [place] Attending physician on admission: [place] Condition: Stable
--- NOTE | 2022-07-03 10:15 | P.PNIM_ITS ---
Progress Note: A&P Assessment and Plan (1) Hyperemesis gravidarum: Code(s): O21.0 - Mild hyperemesis gravidarum Status: Acute Assessment and Plan: * Found to be , about 6-8 weeks * Complaints of nausea, vomiting, and abdominal pain * OB and GI on the case * Could be related to , marijuana use, or possible colitis (2) Abdominal pain, generalized: Code(s): R10.84 - Generalized abdominal pain Status: Acute Assessment and Plan: * Unknown etiology at this point * Could be a colitis * Lactic normal at 0.8 * Abd xray only shows paucity of gas pattern * Could be an ileus * Might benefit from a NG tube * GI on board * Fentanyl added per Ob * Could be from constipation * Added miralax and colace * Add tums for possible GERD (3) Marijuana user: Code(s): F12.90 - Cannabis use, unspecified, uncomplicated Status: Acute Assessment and Plan: * Could be causing symptoms * Has not used in 2 days (4) Hypokalemia: Code(s): E87.6 - Hypokalemia Status: Acute Assessment and Plan: * Was 2.9 upon arrival * Currently 4.0 * continue IV fluids with 20 of K * trend labs (5) Anemia: Code(s): D64.9 - Anemia, unspecified Status: Acute Assessment and Plan: * H/H stable at 10.8/34.1 * MCV low at 72.3 * Anemia labs no deficits noted, probably related to current * Recommend supplement if able * Trend labs (6) Leukocytosis: Code(s): D72.829 - Elevated white blood cell count, unspecified Status: Acute Assessment and Plan: * WBC seems stable at 10.0 * Continue to trend * No identifiable source of infection * it appears that OB has placed the patient on Macrobid (7) Hyponatremia: Code(s): E87.1 - Hypo-osmolality and hyponatremia Status: Acute Assessment and Plan: * Sodium noted to be 128 yesterday * Fluids given * Corrected at this time to 134 * Continue to trend Time Spent With Patient Time with patient: Greater than 35 minutes Subjective Date/time seen: 07/03/22 10:15 Interval history: 07/03/22 1015 Patient is doing okay. Patient did state that she was irritated that she is getting discharged. I did reiterate that she could be having the symptoms due to the . She is doing okay currently though. 07/02/22844 Patient seems to be resting comfortably. She did state that her abdominal pain is pelvic however does radiate up her left side but last night it was radiating up into her chest. It almost sounds like GERD. She did state that she had a little bit of a bowel movement but it was not enough. She denies any shortness of breath. She states she has been walking and that she feels like she has a little bit numb when she gets up which is probably from Laying in the bed. She did state that she was trying to eat some stuff and she is still getting nauseous. Sodium was low today at 128 giving her fluid bolus. 07/01/22844 Patient appears to be resting comfortably. Patient states that she is still nauseated and vomiting and her abdomen still hurts. She denies any chest pain or shortness of breath. She states that her pain is still pelvic and radiates up the left side. I talked to her about having a bowel movement which she denies having a bowel movement since admission. Tom
--- NOTE | 2022-07-03 10:15 | PM.IMPN ---
Progress Note: A&P Assessment and Plan (1) Hyperemesis gravidarum: Code(s): O21.0 - Mild hyperemesis gravidarum Status: Acute Assessment and Plan: Found to be , about 6-8 weeks Complaints of nausea, vomiting, and abdominal pain OB and GI on the case Could be related to , marijuana use, or possible colitis (2) Abdominal pain, generalized: Code(s): R10.84 - Generalized abdominal pain Status: Acute Assessment and Plan: Unknown etiology at this point Could be a colitis Lactic normal at 0.8 Abd xray only shows paucity of gas pattern Could be an ileus Might benefit from a NG tube GI on board Fentanyl added per Ob Could be from constipation Added miralax and colace Add tums for possible GERD (3) Marijuana user: Code(s): F12.90 - Cannabis use, unspecified, uncomplicated Status: Acute Assessment and Plan: Could be causing symptoms Has not used in 2 days (4) Hypokalemia: Code(s): E87.6 - Hypokalemia Status: Acute Assessment and Plan: Was 2.9 upon arrival Currently 4.0 continue IV fluids with 20 of K trend labs (5) Anemia: Code(s): D64.9 - Anemia, unspecified Status: Acute Assessment and Plan: H/H stable at 10.8/34.1 MCV low at 72.3 Anemia labs no deficits noted, probably related to current Recommend supplement if able Trend labs (6) Leukocytosis: Code(s): D72.829 - Elevated white blood cell count, unspecified Status: Acute Assessment and Plan: WBC seems stable at 10.0 Continue to trend No identifiable source of infection it appears that OB has placed the patient on Macrobid (7) Hyponatremia: Code(s): E87.1 - Hypo-osmolality and hyponatremia Status: Acute Assessment and Plan: Sodium noted to be 128 yesterday Fluids given Corrected at this time to 134 Continue to trend Time Spent With Patient Time with patient: Greater than 35 minutes Subjective Date/time seen: 07/03/22 10:15 Interval history: 07/03/22 1015 Patient is doing okay. Patient did state that she was irritated that she is getting discharged. I did reiterate that she could be having the symptoms due to the . She is doing okay currently though. 07/02/22 0845 Patient seems to be resting comfortably. She did state that her abdominal pain is pelvic however does radiate up her left side but last night it was radiating up into her chest. It almost sounds like GERD. She did state that she had a little bit of a bowel movement but it was not enough. She denies any shortness of breath. She states she has been walking and that she feels like she has a little bit numb when she gets up which is probably from Laying in the bed. She did state that she was trying to eat some stuff and she is still getting nauseous. Sodium was low today at 128 giving her fluid bolus. 07/01/22 0845 Patient appears to be resting comfortably. Patient states that she is still nauseated and vomiting and her abdomen still hurts. She denies any chest pain or shortness of breath. She states that her pain is still pelvic and radiates up the left side. I talked to her about having a bowel movement which she denies having a bowel movement since admission. Nurse states that she refused the suppository. Colace and MiraLax have been added to her Mar. 06/30/22 1330 Patient was okay when I walked in. It was reported that patient had been very dramatic especially while her dad was there. She states that her abdomen hurts a lot and she still very nauseous. She stated that she has not been able to tolerate any fluids or food. Pain medication has been increased. Labs remained stable at this time 06/29/22 10:00 Patient is a lot more calm today. She stated that her stomach does her she rates at a 9/10. She also
--- NOTE | 2022-07-03 10:51 | PC.NURSE ---
Pt refused milk of mag this morning, but has been c/o constant constipation. Dr. Paris put discharge orders in for this pt today. Pt is unhappy about discharge instructions - that there is no pain medicine ordered nor any activity restrictions other than pelvic rest. Pt states she is not in a stable enough condition to return to work; states that she is barely able to stand up. Pt's only restrictions are pelvic rest and unable to drive for 24 hours since she received narcotics today. Per discharge instructions, pt is to follow up with Dr. Paris and her PCP for any questions, concerns, or worsening symptoms.
[2022-07-06 20:01] LABS: Calprotectin, Stool 32 mcg/g
== END 2022-07-03 10:43 | disposition home or self-care (01) | DRG 832 ==
LOC: ANHED 14:31 → ANHOBPP 15:11 → ANH3MED 06-27 17:33
PROVIDERS: Internal Medicine Gastroenterology; Nurse Practitioner; Obstetrics & Gynecology; Admitting Provider Obstetrics & Gynecology; Emergency Provider Emergency Medicine; Visit Provider Obstetrics & Gynecology
DX: O21.1 Hyperemesis gravidarum with metabolic disturbance (principal); O99.321 Drug use complicating pregnancy, first trimester; O99.011 Anemia complicating pregnancy, first trimester; O26.891 Other specified pregnancy related conditions, first trimester; R10.84 Generalized abdominal pain; R19.4 Change in bowel habit; F12.90 Cannabis use, unspecified, uncomplicated; Z3A.01 Less than 8 weeks gestation of pregnancy
CPT/HCPCS: 36415; 36569; 74018; 76705; 76801; 76817; 80053; 80307; 81001; 82607; 82728; 82746; 83540; 83550; 83605; 83690; 83735; 83993; 84145; 84439; 84443; 84466; 84702; 85025; 85027; 85046; 85055; 87045; 87427; 89055; 93005; 96361; 96365; 96372; 96375; 96376; 99285; A9270; C1751; G0378; J0131; J0500; J1200; J2060; J2270; J2405; J2550; J3010; J3480; J7030; J7040; J7050; J7120

== ENCOUNTER 2023-04-07 18:52 | Emergency (ER) | payer OTHER, SELFPAY ==
--- NOTE | ~2023-04-07 | XR_ITS ---
Left Hand Technique: PA, oblique, and lateral views were obtained. Clinical History: Pain Findings: No acute fracture or dislocation is seen. Osseous alignment is anatomic. Joint spaces are p reserved. Soft tissues are unremarkable. Impression: Unremarkable left hand. Reviewed, dictated and finalized at location M. Impression: Unremarkable left hand.
[2023-04-07 18:54] VITALS: BP 132/76; PULSE 71; RESP 16; TEMP 36.7; O2SAT 100
--- NOTE | 2023-04-07 19:39 | ED.GENADULT ---
HPI - General Adult General Chief complaint: Extremity Injury, Upper Stated complaint: pinky pain Time Seen by Provider: 04/07/23 19:03 Source: patient Mode of arrival: ambulatory Limitations: no limitations History of Present Illness HPI narrative: The this is a 33-year-old female presents to the ED with chief complaint of left hand and pinky pain onset x2 days. 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 She feels that she may have aggravated something at work but is unsure of any trauma or definite injury to the hand. Reports swelling to the left fifth MCP. Reports difficulty with range of motion. Denies any bug bites, wounds. Denies fevers, chills, numbness, weakness. Related Data Allergies Allergy/AdvReac Type Severity Reaction Status Date / Time No Known Allergies Allergy Unknown Verified 04/07/23 19:03 Review of Systems Review of Systems: CONSTITUTIONAL: Denies fever, chills, or sweats. EYES: Denies visual changes, redness, or discharge. ENT: Denies rhinorrhea, congestion, sore throat, or otalgia. CARDIOVASCULAR: Denies chest pain, palpitations, or edema. RESPIRATORY: Denies cough or dyspnea. GASTROINTESTINAL: Denies abdominal pain, nausea, vomiting, or diarrhea. GENITOURINARY: Denies dysuria or hematuria. SKIN: Denies rash or itching. MUSCULOSKELETAL: See HPI NEUROLOGIC: Denies headache, numbness, dizziness, or weakness. PSYCHIATRIC: Denies anxiety or depression. [facility] Past Medical History Medical History Patient denies significant medical history Social History Social History (Updated 06/28/22 @ 09:57 by SHRUTHI Bravo) Social History: patient has 1 other child at home a little girl. She likes Lynn Fink her grandmother to be her surrogate she was to be a full code. 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 HEAD: Normocephalic, atraumatic. EYES: PERRLA and EOMI. ENT: Nares clear, no rhinorrhea or epistaxis. Mucous membranes moist. Oropharynx without tonsillar hypertrophy exudate or other lesions. NECK: Supple. No adenopathy or masses. CHEST: No respiratory distress. Clear to auscultation. No wheezes rales or rhonchi HEART: Regular rate and rhythm. No murmur heard. Normal peripheral pulses. ABDOMEN: Soft, nontender, nondistended, normal active bowel sounds. MSK: Left upper extremity: Area of minimal swelling to the lateral left MCP area. Point tenderness to this area as well as the rest of the ulnar aspect of the hand and wrist. No bruising. Negative Kan[place] signs. Right upper extremity: Benign SKIN: Warm, dry, no rash. No erythema or ecchymosis. NEURO: Alert and oriented x3. No focal deficits. PSYCH: Normal mood and affect. Course Vital Signs Vital signs: Vital Signs Temperature 98.0 F 04/07/23 18:54 Pulse Rate 71 04/07/23 18:54 Respiratory Rate 16 04/07/23 18:54 Blood Pressure 132/76 04/07/23 18:54 Pulse Oximetry 100 04/07/23 18:54 Oxygen Delivery Room Air 04/07/23 18:54 Temperature 98.0 F 04/07/23 18:54 Pulse Rate 71 04/07/23 18:54 Respiratory Rate 16 04/07/23 18:54 Blood Pressure 132/76 04/07/23 18:54 Pulse Oximetry 100 04/07/23 18:54 Oxygen Delivery Room Air 04/07/23 18:54 Medical Decision Making MDM Narrative Medical decision making narrative: This is a 33-year-old female presents to the ED with chief complaint of left hand pain x2
== END 2023-04-07 19:57 | disposition home or self-care (01) ==
PROVIDERS: Emergency Provider Physician Assistant
DX: M79.642 Pain in left hand (principal); F12.90 Cannabis use, unspecified, uncomplicated
CPT/HCPCS: 73130; 99283

== ENCOUNTER 2023-09-22 00:26 | Emergency (ER) | payer OTHER, SELFPAY ==
[2023-09-22] VITALS (11 sets, daily range): BP systolic 121–138; BP diastolic 76–90; PULSE 97–118; RESP 12–23; TEMP 37.4; O2SAT 100
--- NOTE | ~2023-09-22 | XR_ITS ---
EXAMINATION: XR chest 1V portable DATE: 09/22/2023 03:07 INDICATION: Cough and congestion. TECHNIQUE: A single frontal view of the chest was obtained. COMPARISON: Chest single view 05/30/2020 FINDINGS: There is no pneumonia, pleural effusion, or pneumothorax. The heart size is normal. There a re old healed left rib fractures. IMPRESSION: 1. No acute cardiopulmonary disease. Reviewed, dictated and finalized at location E. NDER WORKER
--- NOTE | 2023-09-22 00:27 | ECG_ITS ---
Measurements Intervals [place] Rate: 116 P: 60 [place]: 116 QRS: 63 QRSD: 86 T: 37 QT: 283 QTc: 393 Interpretive Statements SINUS TACHYCARDIA WITH SHORT [place] INTERVAL INCOMPLETE RIGHT BUNDLE BRANCH BLOCK BASELINE ARTIFACT- I, III, AVL ABNORMAL ECG COMPARED TO ECG 06/25/2022 13:44:24 SINUS TACHYCARDIA NOW PRESENT Electronically Signed On 09-22-2023 6:58:16 BLEACH PACKER by Stanley Smith D.O.
--- NOTE | 2023-09-22 02:12 | ED.GENADULT ---
[facility] - General Adult General Chief complaint: Chest Pain Stated complaint: chest/back pain Time Seen by Provider: 09/22/23 01:59 Source: patient Mode of arrival: ambulatory Limitations: no limitations History of Present Illness HPI narrative: This is a 33-year-old female who presents to the ED with chief complaint of cough, congestion sore throat for the past 2 days. Reports chest tightness along with back tightness, specifically says seen with coughing. Reports that the has productive. Reports fevers T-max of 101? F along with chills.. States she has had nausea with a couple episodes of posttussive emesis.. Denies any exertional chest pain, syncope, shortness of breath, abdominal pain, urinary symptoms, neck pain. Related Data Allergies Allergy/AdvReac Type Severity Reaction Status Date / Time No Known Allergies Allergy Unknown Verified 09/22/23 01:41 Review of Systems Review of Systems: All systems as dictated in [facility] Past Medical History Medical History Patient denies significant medical history Social History Social History (Updated 06/28/22 @ 09:57 by SHRUTHI Silva) Social History: patient has 1 other child at home a little girl. She likes Lynn Fink her grandmother to be her surrogate she was to be a full code. 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 HEAD: Normocephalic, atraumatic. EYES: PERRLA and EOMI. ENT: Nares clear, no rhinorrhea or epistaxis. Mucous membranes moist. Oropharynx without tonsillar hypertrophy exudate or other lesions. NECK: Supple. No adenopathy or masses. CHEST: No respiratory distress. Clear to auscultation. No wheezes rales or rhonchi HEART: Tachycardic rate, regular rhythm. No murmur heard. Normal peripheral pulses. ABDOMEN: Soft, nontender, nondistended, normal active bowel sounds. MSK: Normal range of motion. No edema. SKIN: Warm, dry, no rash. NEURO: Alert and oriented x3. No focal deficits. PSYCH: Normal mood and affect. Course Vital Signs Vital signs: Vital Signs Temperature 99.3 F 09/22/23 00:33 Pulse Rate 117 H 09/22/23 00:33 Respiratory Rate 22 H 09/22/23 00:33 Blood Pressure 135/90 09/22/23 00:33 Pulse Oximetry 100 09/22/23 00:33 Oxygen Delivery Room Air 09/22/23 00:33 Temperature 99.3 F 09/22/23 00:33 Pulse Rate 117 H 09/22/23 00:33 Respiratory Rate 22 H 09/22/23 00:33 Blood Pressure 135/90 09/22/23 00:33 Pulse Oximetry 100 09/22/23 01:40 Oxygen Delivery Room Air 09/22/23 01:40 Medical Decision Making MDM Narrative Medical decision making narrative: This is a 33-year-old female who presents to the ED for chief complaint of URI symptoms and cough. Vitals show initial tachycardia but otherwise within normal limits. Temperature slightly elevated at 99.3? F. saturating 100% on room air. EKG is without ischemic findings. Shows sinus tachycardia. Lab work is unremarkable. D-dimer negative. Low concern for thromboembolic event. Viral swabs are positive for COVID-19. She has maintained good saturations and clinically improved during her stay. Pt will be discharged in stable condition. Return precautions given and supportive measures discussed. Pt is understanding and agreeable with plan for discharge and follow-up with PCP. Vital Signs Vital Signs: Vital Signs Temperature 99.3 F 09/22/23 00:33 Pulse Rate 117 H 09/22/23 00:33 Respiratory Rate 22
[2023-09-22] MEDS: SODIUM CHLORIDE 0.9% IV 1,000 ML 999 ML IV CONT (02:22)
[2023-09-22 02:29] LABS: Basophils Percent Auto 0.1 % (0.2-1.2); Eosinophils Percent Auto 0.1 % (0-4.4); Hematocrit 39.2 % (37.0-47.0); Immature Granulocyte Absolute 0.02 K/mm3 (0.00-0.031); Immature Granulocyte Percent A 0.3 % (0-0.5); Immature Platelet Fraction Pct 2.6 % (0.9-11.2); Lymphocytes Absolute Auto 0.69 K/mm3 (0.9-3.2); Lymphocytes Percent Auto 9.1 % (18.3-44.2); Mean Corpuscular HGB Conc 30.6 g/dl (32-36); Mean Corpuscular Hemoglobin 21.3 pg (26-34); Mean Corpuscular Volume 69.6 fl (80-100); Mean Platelet Volume 9.8 fl (7.4-10.4); Monocytes Absolute Auto 0.7 K/mm3 (0.1-0.6); Monocytes Percent Auto 9.2 % (2.6-8.5); Neutrophils Absolute Auto 6.1 K/mm3 (1.3-6.7); Neutrophils Percent Auto 81.2 % (45.5-73.1); Platelet Count Result 195 k/mm3 (150-375); Red Blood Count 5.63 M/mm3 (4.2-5.4); Red Cell Distribution Width 14.7 % (11.5-14.5); White Blood Count 7.6 K/mm3 (4.5-10.0)
[2023-09-22] MEDS: KETOROLAC 15 MG/ML VIAL (*BKC) IV PUSH (02:35)
[2023-09-22] MEDS: ONDANSETRON INJ 4 MG/2 ML VIAL IV PUSH (02:35)
[2023-09-22 02:37] LABS: Alanine Aminotransferase 18 U/L (6-35); Albumin Level 4.3 g/dL (3.5-5.1); Alkaline Phosphatase 119 U/L (38-126); Anion Gap 8 mmol/L (8-16); Aspartate Amino Transferase 22 U/L (14-36); Bilirubin,Total 0.7 mg/dL (0.2-1.3); Blood Urea Nitrogen 9 mg/dL (7-17); Calcium 9.5 mg/dL (8.4-10.2); Carbon Dioxide 24 mmol/L (22-30); Chloride 107 mmol/L (98-107); Estimated CRCL calculation 111 ml/min; Estimated Glomerular Filt Rate > 60; Glucose 89 mg/dL (65-110); Potassium 3.9 mmol/L (3.4-5.0); Sodium 139 mmol/L (137-145)
[2023-09-22 02:53] LABS: Anisocytosis 1+ (NORMAL); Hypochromasia 1+ (NORMAL); Microcytosis 1+ (NORMAL); Ovalocytes 1+ (NORMAL); Platelet Estimate Adequate (Adequate); Poikilocytosis 1+ (NORMAL); Schistocytes None Seen (NORMAL)
[2023-09-22 02:54] LABS: D Dimer < 0.27 ug/mL (<0.48)
[2023-09-22 03:02] LABS: Influenza A QL RT-PCR Negative (Negative); Influenza B QL RT-PCR Negative (Negative); RSV RNA, RT-PCR Negative (Negative); SARS-CoV-2 RNA PCR Positive (Negative)
== END 2023-09-22 03:21 | disposition home or self-care (01) ==
PROVIDERS: Emergency Provider Physician Assistant
DX: U07.1 COVID-19 (principal)
CPT/HCPCS: 36415; 71045; 80053; 85025; 85055; 85380; 87637; 93005; 96361; 96374; 96375; 99284; J1885; J2405; J7030

== ENCOUNTER 2023-10-17 18:24 | Emergency (ER) | payer OTHER, SELFPAY ==
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
[2023-10-17 18:40] VITALS: BP 125/76; PULSE 96; RESP 18; TEMP 36.4; O2SAT 99
[2023-10-17 20:00] VITALS: BP 118/72; PULSE 76; RESP 16; O2SAT 100
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
[2023-10-17] MEDS: CYCLOBENZAPRINE HCL 10 MG TABLET PO (21:23)
[2023-10-17] MEDS: ACETAMINOPHEN 500 MG TABLET 1000 MG PO (21:24)
[2023-10-17] MEDS: IBUPROFEN 400 MG TABLET 800 MG PO (21:24)
[2023-10-17 22:56] VITALS: BP 124/80; PULSE 78; RESP 16; TEMP 36.6; O2SAT 99
== END 2023-10-17 22:57 | disposition home or self-care (01) ==
PROVIDERS: Emergency Provider Physician Assistant
DX: S20.219A Contusion of unspecified front wall of thorax, initial encounter (principal); S39.012A Strain of muscle, fascia and tendon of lower back, initial encounter; M47.814 Spondylosis without myelopathy or radiculopathy, thoracic region; M47.816 Spondylosis without myelopathy or radiculopathy, lumbar region; V43.52XA Car driver injured in collision with other type car in traffic accident, initial encounter
CPT/HCPCS: 71046; 72128; 72131; 81025; 99284; A9270

== ENCOUNTER 2023-11-03 09:37 | Emergency (ER) | payer OTHER, SELFPAY ==
--- NOTE | 2023-11-03 09:44 | ED.NAVMDI ---
HPI - Nausea/Vomiting/Diarrhea General Chief complaint: Nausea/Vomiting/Diarrhea Stated complaint: Nausea and vomitting, low blood sugar Time Seen by Provider: 11/03/23 09:44 Source: patient and family Mode of arrival: ambulatory Limitations: no limitations History of Present Illness HPI Narrative: Patient is a 33-year-old female with past medical history as noted below who presents to the emergency department today with family member for evaluation of a if nausea, vomiting, constipation. States it started last night has been going on morning. She states that her blood sugar was also low but she did not check gait she does feels like is low. She states she has abdominal discomfort from the vomiting. She denies any drug use. Did drink alcohol yesterday but only 1 drink. Denies diarrhea. Denies fever chills. Denies any pain with urination. Denies chest pain or shortness of breath. Denies any back pain. States that she gets the contraceptive shot so her periods are irregular but she did have some spotting two days ago.denies drug or tobacco use. denies anyone in household with similiar symptoms. Related Data Allergies Allergy/AdvReac Type Severity Reaction Status Date / Time No Known Allergies Allergy Unknown Verified 11/03/23 10:10 Review of Systems Review of Systems: CONSTITUTIONAL: Denies fever, chills, or sweats. CARDIOVASCULAR: Denies chest pain, palpitations, or edema. RESPIRATORY: Denies cough or dyspnea. GASTROINTESTINAL: +nausea/vomiting. Denies diarrhea. +Constipation. GENITOURINARY: Denies dysuria or hematuria. SKIN: Denies rash or itching. MUSCULOSKELETAL: Denies back pain, joint pain, or myalgia. NEUROLOGIC: Denies headache, numbness, or weakness. PSYCHIATRIC: Denies anxiety or depression. All systems reviewed & are unremarkable except as noted in HPI and below PMFSH Past Medical History Medical History Patient denies significant medical history Social History Social History Social History: patient has 1 other child at home a little girl. She likes Lynn Garcia Fink her grandmother to be her surrogate she was to be a full code. 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 HEAD: Normocephalic, atraumatic. EYES: PERRLA and EOMI. ENT: Nares clear, no rhinorrhea or epistaxis. Mucous membranes dry. NECK: Supple. CHEST: Clear to auscultation. No respiratory distress. HEART: Regular rate and rhythm. No murmur heard. Normal peripheral pulses. ABDOMEN: Soft, nondistended, normal active bowel sounds. no point or localized tenderness with palpation. no rebound/guarding. EXTREMITIES: Normal range of motion. No edema. SKIN: Warm, dry, no rash. NEURO: No focal deficits. Alert and oriented x3. PSYCH: anxious. Course Reevaluation(s) Reevaluation #1: pt resting comfortably at this time, no distress noted. Date: 11/03/23 Time: 11:45 Vital Signs Vital signs: Vital Signs Temperature 97.7 F 11/03/23 09:46 Pulse Rate 148 H 11/03/23 09:46 Respiratory Rate 18 11/03/23 09:46 Blood Pressure 148/86 H 11/03/23 09:46 Pulse Oximetry 100 11/03/23 09:46 Temperature 97.7 F 11/03/23 09:46 Pulse Rate 78 11/03/23 10:56 Respiratory Rate 17 11/03/23 10:56 Blood Pressure 141/95 H 11/03/23 10:56 Pulse Oximetry 99 11/03/23
[2023-11-03 09:46] VITALS: BP 148/86; PULSE 148; RESP 18; TEMP 36.5; O2SAT 100
[2023-11-03 09:56] LABS: Glucose Point of Care 152 mg/dl (65-105)
[2023-11-03 10:05] LABS: Basophils Percent Auto 0.1 % (0.2-1.2); Hematocrit 39.9 % (37.0-47.0); Hemoglobin 12.4 g/dL (12.0-15.0); Immature Granulocyte Absolute 0.03 K/mm3 (0.00-0.031); Immature Granulocyte Percent A 0.3 % (0-0.5); Immature Platelet Fraction Pct 2.4 % (0.9-11.2); Lymphocytes Absolute Auto 0.61 K/mm3 (0.9-3.2); Lymphocytes Percent Auto 5.4 % (18.3-44.2); Mean Corpuscular HGB Conc 31.1 g/dl (32-36); Mean Corpuscular Hemoglobin 21.5 pg (26-34); Mean Corpuscular Volume 69.3 fl (80-100); Mean Platelet Volume 9.9 fl (7.4-10.4); Monocytes Absolute Auto 0.2 K/mm3 (0.1-0.6); Monocytes Percent Auto 1.4 % (2.6-8.5); Neutrophils Absolute Auto 10.4 K/mm3 (1.3-6.7); Neutrophils Percent Auto 92.8 % (45.5-73.1); Platelet Count Result 282 k/mm3 (150-375); Red Blood Count 5.76 M/mm3 (4.2-5.4); Red Cell Distribution Width 15.6 % (11.5-14.5); White Blood Count 11.2 K/mm3 (4.5-10.0)
[2023-11-03 10:10] VITALS: BP 120/73; PULSE 77; RESP 20; O2SAT 99
[2023-11-03 10:14] LABS: Alanine Aminotransferase 21 U/L (6-35); Albumin Level 4.9 g/dL (3.5-5.1); Alkaline Phosphatase 128 U/L (38-126); Anion Gap 13 mmol/L (8-16); Aspartate Amino Transferase 28 U/L (14-36); Bilirubin,Total 0.6 mg/dL (0.2-1.3); Blood Urea Nitrogen 8 mg/dL (7-17); Calcium 9.8 mg/dL (8.4-10.2); Carbon Dioxide 21 mmol/L (22-30); Chloride 107 mmol/L (98-107); Estimated Glomerular Filt Rate > 60; Glucose 149 mg/dL (65-110); Lipase 77 U/L (23-300); Potassium 3.7 mmol/L (3.4-5.0); Sodium 141 mmol/L (137-145)
[2023-11-03 10:17] VITALS: BP 120/73; BP 141/95; PULSE 77; PULSE 93
[2023-11-03] MEDS: SODIUM CHLORIDE 0.9% IV 1,000 ML 999 ML IV CONT (10:17)
[2023-11-03] MEDS: ONDANSETRON INJ 4 MG/2 ML VIAL IV PUSH (10:17)
[2023-11-03 10:22] LABS: Glucose Point of Care 155 mg/dl (65-105)
[2023-11-03 10:56] VITALS: BP 141/95; PULSE 78; RESP 17; O2SAT 99
[2023-11-03 11:06] LABS: Influenza A QL RT-PCR Negative (Negative); Influenza B QL RT-PCR Negative (Negative); RSV RNA, RT-PCR Negative (Negative); SARS-CoV-2 RNA PCR Negative (Negative)
[2023-11-03] MEDS: FAMOTIDINE 20 MG/2 ML VIAL IV PUSH (11:12)
[2023-11-03 11:17] LABS: Appearance Urine Cloudy (Clear); Bacteria Urine None Seen /hpf; Bilirubin Urine Negative (Negative); Blood Urine 2+ (Negative); Color Urine Yellow (Yellow); Glucose Urine UA Negative (Negative); Ketones Urine 4+ mg/dL (Negative); Leukocyte Esterase Ur 1+ LEU/UL (Negative); Need Manual Microscopic Reviewed; Nitrate Urine Negative (Negative); Non Pathogenic Casts 0-2; Protein Urine 1+ mg/dL (Negative); RBC Urine 0-2 /hpf (0-2); Specific Grav Ur 1.027 (1.001-1.035); Squamous Epithelial Cell Urine Few /hpf (Few); Urobilinogen Urine 0.2 mg/dL (<2.0); WBC Urine 0-5 /hpf; pH Urine 7.5 (5.0-9.0)
[2023-11-03 11:18] LABS: Amphetamine Screen Urine Negative (Negative); Barbiturate Screen Urine Negative (Negative); Benzodiazepines Screen Urine Negative (Negative); Cannabinoid Screen Urine Positive (Negative); Cocaine Screen Urine Negative (Negative); Methadone Screen Urine Negative (Negative); Opiate Screen Urine Negative (Negative); Phencyclidine Screen Urine Negative (Negative)
[2023-11-03 11:19] LABS: Add Urine Microscopic? YES
[2023-11-03] MEDS: LACTATED RINGERS 1,000 ML 999 ML IV CONT (11:40)
[2023-11-03] MEDS: METOCLOPRAMIDE HCL INJ 10 MG/2 ML VIAL IV PUSH (11:40)
[2023-11-03] MEDS: diphenhydrAMINE HCl INJ 50 MG/ML VIAL 25 MG IV PUSH (11:40)
[2023-11-03 12:59] VITALS: BP 126/78; PULSE 80; RESP 16; TEMP 36.3; O2SAT 100
== END 2023-11-03 12:57 | disposition home or self-care (01) ==
PROVIDERS: Emergency Medicine; Emergency Provider Nurse Practitioner
DX: R11.2 Nausea with vomiting, unspecified (principal); F12.90 Cannabis use, unspecified, uncomplicated; Z20.822 Contact with and (suspected) exposure to COVID-19; R03.0 Elevated blood-pressure reading, without diagnosis of hypertension
CPT/HCPCS: 36415; 80053; 80307; 81001; 81025; 82948; 83690; 85025; 85055; 87637; 96361; 96374; 96375; 99284; J1200; J2405; J2765; J7030; J7120

== ENCOUNTER 2025-05-09 06:39 | Emergency (ER) | payer BC, SELFPAY ==
--- OUTSIDE RECORDS SUMMARY | 2025-05-09 06:41 | XMS_ITS | Data Portability ---
Author Organization [facility], [place] Address [address] [place] [address] Assessment No assessment recorded. Plan of Treatment Reminders Order Date Submit Date Provider Last Modified By Organization Details Last Modified Time Details Appointments None recorded. Lab None recorded. Referral None recorded. Procedures None recorded. Surgeries salpingecto my, laparoscopi c (SURG) [address], [address], [place], [address], 07:20:52 Imaging None recorded. Medication Orders promethazin e 25 mg tablet 2021 [facility][id number], [address] [place], [place], [id number], 14:33:38 hydrocodone 5 mg-acetamin ophen 325 mg tablet 2021 [facility] #[id number], [address] [place], [place], [id number], 14:34:53 Patient TargetsNo targets recorded. Patient InstructionsNo instructions recorded. Reason for Referral None Reported. Results Created Date Observation Date Name Description Value Unit Range Abnormal Flag Note LastModifiedBy Organization Detail LastModifiedTime 06/27/20 22 06/27/2022 US, abdom en No observ ation record ed. [email or web address] [place] [address] [address], [place], [address], 03/12/2023 17:33:00 06/27/20 22 06/27/2022 US, abdom en No observ ation record ed. [address], [place], [address], 03/12/2023 17:33:19 06/27/20 22 06/27/2022 XR, abdom en No observ ation record ed. [address], [place], [address], 03/12/2023 17:34:26 06/27/20 22 06/27/2022 XR, abdom en No observ ation record ed. [address], [place], [address], 03/12/2023 17:34:47 Result Notes None recorded. Medical Equipment None Reported. Allergies No known drug allergies Medications Name Sig Start Date Stop Date Status Note LastModified by Organization Details LastModified Time azithromyci n 250 mg tablet 07/05 completed Not Available Not Available Not Available benzonatate 200 mg capsule 07/05 completed Not Available Not Available Not Available hydrocodone 5 mg-acetamin ophen 325 mg tablet Take 1 tablet every 6 hours by oral route. active Not Available Not Available No t Available ondansetron HCl 4 mg tablet 07/05 completed Not Available Not Available Not Available prednisone 20 mg tablet 07/05 completed Not Available Not Available Not Available ondansetron 8 mg disintegrat ing tablet active Not Available Not Available N ot Available promethazin e 25 mg tablet Take 1 tablet every 4 hours by oral route. active Not Available Not Available No t Available ibuprofen 600 mg tablet 07/05 completed Not Available Not Available Not Available albuterol sulfate HFA 90 mcg/actuati on aerosol inhaler 07/05 completed Not Available Not Available Not Available ondansetron 4 mg disintegrat ing tablet 07/05 completed Not Available Not Available Not Available doxycycline hyclate 100 mg tablet 07/05 completed Not Available Not Available Not Available Purelax 17 gram/dose oral powder 07/05 completed Not Available Not Available Not Available Zuplenz 8 mg oral soluble film DISSOLVE 1 FILM ON TONGUE EVERY 8 HOURS active Not Available Not Available No t Available Vitals Date Recorded Body height Body mass index (BMI) Body weight Systolic And Diastolic Provider Name and Address Organization Details Last Updated DateTime 07/05/2022 160.02 cm 19.8 kg/m2 62179.35 g 105/75 mm[Hg] Helen Whitney [facility] 07/05/2022 14:21:10 Social History None recorded. Functional Status None recorded. Mental Status None recorded. Family History Relationship Description Onset Age of this Age Resolved Age Notes LastModified by Organization Details LastModified Time Maternal Grandmother Diabetes mellitus [email or web address] Not available 2021 15:16:06 Maternal Grandmother Hypertensive disorder [email or web address] Not available 2021 15:16:24 Maternal Grandfather Diabetes mellitus [email or web address] Not available 2021 15:16:06 Maternal Grandfather Hypertensive disorder [email or web address] Not available 2021 15:16:24 Mother Hypertensive disorder [email or web address] Not available 2021 15:16:24 Mother Cerebrovascu lar accident [email or web address] Not available 05/2022 15:16:32 Medical History No medical history recorded. Gynecological History Statement/Question Response Age of first menstrual cycle 13 Current Control Method Date of LMP 05/19/2022 Obstetrics History GPAL:G 2 P 1 0 1 1 Type Value Full Term 1 Induced 1 Living 1 Total 2 Past Encounters Encounter ID Performer Location Encounter Start Date Encounter Closed Date Diagnosis/Indication Diagnosis SNOMED-CT Code Diagnosis ICD10 Code Diagnosis Note [id number] Oskar Paris MD [place] [address] [address] 07/05/2022 14:02:58 07/05/2022 15:05:27 Abdominal pain 79234923 R10.9 This patient is a 32-year-ol d female presents for follow-up after hospital admission for abdominal pain and nausea and vomiting. She has 7 week gestation. She continues to have abdominal pain. Her vomiting is diminished but she continues to have nausea . She needs some pain medication for sleep. We do need some pain management . Pain medication was sent. She understand s the risk. She also needs some follow-up. She plans to terminate the in 2 weeks. Spent over 20 minutes face-to-fa ce. More than 50% was counseling . Talked about her abdominal pain the evaluation . Talked about CT scan after her terminatio n. We talked about work and her ability to perform her tasks at work. She feels she is ready to return to work in 4 days. Evaluation the hospital did not yield any direct evidence of a intra-abdo abraham problem. Female sterilization 608 [address]806 Z30.2 Health Concerns Section Related Observation LastModified by Organization Detai ls LastModified Time None Recorded Concern Status LastModified by Organization Details LastModified Time None Recorded Advance Directives Directive None Recorded Payers Insurance Date Sequence Insurance Name Policy Number Policy Haddad Covered Member ID Haddad Member ID Guarantor Name 09/10/2024 1 [employer] [id number] Belem Fink [id number] Belem Fink Notes Date Note Type Note Provider Name and Address Organization Details Recorded Time 07/05/2022 text/html This patient is a 32-year-old female presents for follow-up after hospital admission for abdominal pain and nausea and vomiting. She has 7 week gestation. She continues to have abdominal pain. Her vomiting is diminished but she continues to have nausea . She needs some pain medication for sleep. We do need some pain management. Pain medication was sent. She understands the risk. She also needs some follow-up. She plans to terminate the in 2 weeks. Spent over 20 minutes [id number]. More than 50% was counseling. Talked about her abdominal pain the evaluation. Talked about CT scan after her termination. We talked about work and her ability to perform her tasks at work. She feels she is ready to return to work in 4 days. Evaluation the hospital did not yield any direct evidence of a intra-abdominal problem. Oskar Paris MD [address], [place], [address], [facility] 07/05/2022 14:49:29 OBGyn Episode Ob Episode Information Episode Created Date Number of Fetuses Patient Bloodtype Patient rh Status Prepregnancy Weight lbs Domestic Partner Domestic Partner Phone Father Name Stiff Leg Operator Status 07/05/20 22 1 CLOSED Fetus Data First Name Last Name Admitted to NICU Weight (g) Sex Living Outcome Pediatric Complications Fetus ID Race Codes Race Delivery Type 2806.37 [id number] F Full Term [id number] Primary Jamar Calculation Initial Jamar Date Initial Exam Date Initial Exam Provider Initial Ultrasound Date Last Menstrual Period Date Ultra Sound Weeks Gestation 0 Eighteen To Twenty Week Jamar Update Ultra Sound Date Fundal Height At Umbil Quickening Date Ultra Sound Latest Weeks Gestation Final Jamar Confirmed By Final Jamar Confirmed Date Final Jamar Date Ultra Sound Latest Days Gestation 0 0 Menstrual History Last Menstrual Date Menses Monthly On Bcp Conception Prior Menses Frequency Hcg Plus Date Menarche Onset Age Delivery Information Delivery Date Delivery Type Labor Anesthesia Weeks Gestation Incision Type Labor Labor Length Hrs Delivered By Post Complications Tubal Sterilization Discharge Date Comments 0 40 Mee Discharge Information Feeding Method Contraceptive Method Maternal HG B and HCT Levels Ob Episode Information Episode Created Date Number of Fetuses Patient Bloodtype Patient rh Status Prepregnancy Weight lbs Domestic Partner Domestic Partner Phone Father Name Stiff Leg Operator Status 07/05/20 22 1 CLOSED Fetus Data First Name Last Name Admitted to NICU Weight (g) Sex Living Outcome Pediatric Complications Fetus ID Race Codes Race Delivery Type , Induced [id number] Jamar Calculation Initial Jamar Date Initial Exam Date Initial Exam Provider Initial Ultrasound Date Last Menstrual Period Date Ultra Sound Weeks Gestation 0 Eighteen To Twenty Week Jamar Update Ultra Sound Date Fundal Height At Umbil Quickening Date Ultra Sound Latest Weeks Gestation Final Jamar Confirmed By Final Jamar Confirmed Date Final Jamar Date Ultra Sound Latest Days Gestation 0 0 Menstrual History Last Menstrual Date Menses Monthly On Bcp Conception Prior Menses Frequency Hcg Plus Date Menarche Onset Age Delivery Information Delivery Date Delivery Type Labor Anesthesia Weeks Gestation Incision Type Labor Labor Length Hrs Delivered By Post Complications Tubal Sterilization Discharge Date Comments 0 Discharge Information Feeding Method Contraceptive Method Maternal HG B and HCT Levels
--- OUTSIDE RECORDS SUMMARY | 2025-05-09 06:41 | XMS_ITS | Referral Summary ---
Author Organization [facility] ([place], [place]) Address [address] [place] [address] Care Team Providers Care Cnc Machine Operator Name Role Phone Perry Campbell MD Primary Care Provider [phone] Perry Campbell MD Unavailable Allergies No known active allergies Medications promethazine (PHENERGAN) 25 mg tablet Take 1 tablet (25 mg total) by mouth every 6 (six) hours as needed for nausea or vomiting 20 tablet 09/23/20 23 Active moxifloxacin (VIGAMOX) 0.5 % ophthalmic solution Administer 1 drop into the right eye 4 (four) times a day 3 mL 11/19/19 24 Active ondansetron ODT (ZOFRAN-ODT) 4 mg disintegrating tablet Take 1 tablet (4 mg total) by mouth every 8 (eight) hours as needed for nausea or vomiting 20 tablet 01/05/20 24 Active benzonatate (TESSALON) 100 mg capsuleIndications :Cough Take 1 capsule (100 mg total) by mouth every 8 (eight) hours 21 capsule 01/05/20 24 Active nitrofurantoin monohydrate (MACROBID) 100 mg capsule Take 1 capsule (100 mg total) by mouth 2 (two) times a day 10 capsule 01/05/20 24 Active white petrolatum-mineral oiL ointment Apply 1 Application to right eye nightly 3.5 g 02/19/20 24 Active artificial tears (ISOPTO TEARS) 0.5 % ophthalmic solution Administer 2 drops into the right eye every 3 (three) hours as needed (eye discomfort) 15 mL 02/19/20 24 Active sodium chloride (GIOVANNA 128) 2 % ophthalmic solutionIndication s:Corneal Edema Administer 1 drop into the right eye 4 (four) times a day as needed for irritation 15 mL 02/19/20 24 Active sodium chloride 5 % ophthalmic ointmentIndication s:Corneal Edema Apply 1/2 inch into the right eye at night. 3.5 g 11 02/25/20 24 Active Active Problems Problem Noted Date Diagnosed Date Refractive error 11/22/2023 Assessment & Plan (11/22/2023 1:44 PM MACHINE TECH): Patient would like to establish here for routine eye exams. Needs new glasses. 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 Exam at that time significant for large epi defect. Patient has had multiple visits for recurrent corneal erosions since that initial visit. Also was using visine frequently at one time and advised to discontinue this. Assessment & Plan (02/25/2024 3:00 PM CDT): Initially seen in ED 11/19/2022 for pain, blurry vision, and light sensitivity OD after rubbing eyes. Exam at that time significant for large epi defect. Patient has had multiple visits for recurrent corneal erosions since that initial visit. Also was using visine frequently at one time and advised to discontinue this. Today, epi defect remains healed but patient very symptomatic. PLAN Switch refresh ointment qhs to giovanna ointment qhs OD Continue giovanna QID OD Continue PFATs prn OD Continue avoiding visine RTC 2 weeks; if still symptomatic, consider starting CL + moxi Assessment & Plan (12/09/2023 12:13 PM MACHINE TECH): Still no epi defect on exam today but continued symptomatic photophobia and intermittent blurry vision, although symptoms have improved since stopping Clear Eyes drops. Describes intermittent monocular diplopia. Conjunctival injection improved. 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 On further history, patient does recall being scratched in the right eye around 5-6 years ago and had subsequent intermittent pains in that eye for some time afterward, although that had resolved as of recently. Overall, history is consistent with recurrent corneal erosion. Plan: Continue Refresh PM qHS OD (instructed patient on how to use) Continue PFAT's during the day (instructed how to use) Start Giovanna 2% OD QID PRN RTC PRN for worsening symptoms. Assessment & Plan (11/22/2023 1:44 PM MACHINE TECH): Exam today with resolution of epi defect but continued symptomatic photophobia and blurry vision. Epithelium centrally is somewhat irregular. No evidence of ABMD in the other eye, but history of severe epi defect from eye rubbing is suggestive of risk for recurrent corneal erosions. Also conjunctival injection in pattern suggestive of medicamentosa. Plan: Stop Clear Eyes Stop moxi Refresh PM qHS OD (instructed patient on how to use) PFAT's during the day (gave samples and instructed how to use) If symptoms do not improve, RTC 2 weeks for anterior exam, otherwise PRN. Patient to call sooner for worsening symptoms. Social History Tobacco Use Types Packs/Day Years Used Date Smoking Tobacco: Never Tobacco Cessation:Counseling Given: Not Answered Personal Safety Answer Date Recorded Have you ever been in or are you currently in a harmful physical or emotional relationship or is someone making you feel afraid or unsafe? Denies 2024 Comments No Sex and Gender Information Value Date Recorded Sex Assigned at Not on file Legal Sex Female 9:03 PM MACHINE TECH Gender Identity Not on file Sexual Orientation Not on file Last Filed Vital Signs Vital Sign Reading Time Taken Comments Blood Pressure 128/73 2024 6:00 AM CDT Pulse 94 2024 6:00 AM CDT Temperature 36.4 C (97.5 F) 2024 5:31 AM CDT Respiratory Rate 18 2024 5:31 AM CDT Oxygen Saturation 99% 2024 6:00 AM CDT Inhaled Oxygen Concentration - - Weight 53.5 kg (118 lb) 2024 5:31 AM CDT Height 172.7 cm (5' 8) 2024 5:31 AM CDT Body Mass Index 17.94 2024 5:31 AM CDT Plan of Treatment Not on file Insurance [facility] CHOICE PLUS [facility] HMO/PPO Address: [place] [address] [facility]ICE PLUS [facility] H[facility]/PPO Address: [address] [place] [address] [facility] CHOICE PLUS [facility] HMO/PPO Address: [address] [address] [place] [address] [facility] CHOICE PLUS [facility] HMO/PPO Address: [address] [address] [place] [address] Care Teams Cnc Machine Operator Relationship Specialty Start Date End Date Perry Campbell MD [address] [place] [address] PCP - General Internal Medicine 11/19/23 Perry Campbell MD [address] [place] [address] Internal Medicine 11/19/23
--- OUTSIDE RECORDS SUMMARY | 2025-05-09 06:41 | XMS_ITS | Clinical Summary ---
Author Organization [facility] Address [address] [place] [address] Care Team Providers Care Brass Reclaimer Name Role Phone Perry Campbell MD Primary Care Provider [phone] Perry Campbell MD Unavailable Allergies No known [...] 11/22/2023 Assessment & Plan (11/22/2023 1:44 PM INPATIENT SERVICES DIRECTOR): Patient would like to establish here for [...] moxi Assessment & Plan (12/09/2023 12:13 PM INPATIENT SERVICES DIRECTOR): Still no epi defect on exam today but continued symptomatic photophobia and intermittent blurry vision, although symptoms have improved since stopping Clear Eyes drops. Describes intermittent monocular diplopia. Conjunctival injection improved. No obvious ewo-uvv-qnpupkzczgls but history and exam likely consistent with [...] symptoms. Assessment & Plan (11/22/2023 1:44 PM INPATIENT SERVICES DIRECTOR): Exam today with resolution of epi defect [...] on file Legal Sex Female 9:03 PM INPATIENT SERVICES DIRECTOR Gender Identity Not on file Sexual Orientation Not on file Obstetrics History Last Filed Vital Signs Vital Sign Reading [...] 2024 5:31 AM CDT Plan of Treatment Health Maintenance Due Date Last Done Comments Cervical Cancer Screening 1991 Depression Screening 1991 Hepatitis C Screening 1991 Varicella Vaccines (1 of 2 - 13+ 2-dose series) 02/20/2004 HPV Vaccines (2 - 3-dose series) 09/24/2008 08/27/2008 Regular Well Visit/Exam 18-64 2009 Influenza Vaccine (Season Ended) 2025 08/27/2008 DTaP/Tdap/Td Vaccine (7 - Td or Tdap) 08/06/2028 08/06/2018, 08/27/1995, 07/05/1993, Additional history exists Hepatitis B Screening Completed 05/29/2023, 023 Pneumococcal vaccine <65 Aged Out No longer eligible based on patient's age to complete this topic Insurance [facility] CHOICE PLUS [facility] HMO/PPO Address: [facility] [address] [place] [address] [facility] CHOICE PLUS [facility] H[facility]/PPO Address: [address] [place] [address] CHOICE PLUS [facility] HMO/PPO Address: [address] [place] [address] CHOICE PLUS [facility] HMO/PPO Address: [address] [address] [place] [address] Care Teams Brass Reclaimer Relationship Specialty Start Date End Date Perry Campbell MD [address] [place], [place] [address] [place] [address] PCP - General Internal Medicine 11/19/23 Perry Campbell MD [address] [facility] [address] [place] [address] Internal Medicine 11/19/23
--- OUTSIDE RECORDS SUMMARY | 2025-05-09 06:42 | XMS_ITS | Clinical Summary ---
Author Organization [facility] Address [address] [place] [address] Care Team Providers Care Community Development Coordinator Name Role Phone Unavailable Primary Care Provider Unavailabl e Social History Tobacco Use Types Packs/Day Years Used Date Smoking Tobacco: Never Assessed Comments Unknown Sex and Gender Information Value Date Recorded Sex Assigned at Not on file Legal Sex Female 9:11 PM CDT Gender Identity Not on file Sexual Orientation Not on file Plan of Treatment Health Maintenance Due Date Last Done Comments Cervical Cancer Screening Pa p Smear (Age 30 to 64) Every 3 Years 1991 Annual Physical 1994 Hepatitis C 2009 DTaP, Tdap and Td Vaccines ( 1 - Tdap) 2010 Hepatitis B Vaccines (1 of 3 - 19+ 3-dose series) 2010 Cervical Cancer Screening Pa p with HPV Testing (Age 30 to 64) Every 5 Years 2021 Cervical Cancer Screening with HPV 2021 COVID-19 Vaccine (2023-2 5 season) 2024 HPV Vaccines Aged Out No longer eligi ble based on patient's age to complete this topic Meningococcal B Vaccine Aged Out No l onger eligible based on patient's age to complete this topic Meningococcal Vaccine Aged Out No katie paul eligible based on patient's age to complete this topic Pneumococcal Vaccine: Pediat rics (0 to 5 Years) and At-Risk Patients (6 to 49 Years) Aged Out No longer eligible b ased on patient's age to complete this topic RSV Immunizations Under 20 Months Aged Out No longer eligible based on patient's age to complete this topic Insurance [facility]
--- OUTSIDE RECORDS SUMMARY | 2025-05-09 06:42 | XMS_ITS | Data Portability ---
Author Organization [facility], [employer] Address [address] [facility] [address] [place] [address] Assessment Encounter Date Assessment Date Assessment LastModified by Organization Details LastModified Time 10/10/2023 10/10/2023 Recommends healthy nutrition, including a diet rich in fruits and vegetables, minimizing simple carbohydrates, salt, and saturated fats. Encouraged regular cardiovascular exercise such as walking at least 30 minutes daily, 5 times per week. Not available 10/10/2023 13:38:51 10/23/2023 10/23/2023 Patient presente d for follow up. Studies ordered as below. Discussed plan with patient/caregiver , who expressed understanding. Follow up as noted below. [email or web address] Not available 10/23/2023 15:17:36 11/21/2023 11/21/2023 Patient presente d for follow up. Studies ordered as below. Discussed plan with patient/caregiver , who expressed understanding. Follow up as noted below. Not available 11/21/2023 14:56:13 08/13/2024 08/13/2024 Patient presente d for follow up. Studies ordered as below. Discussed plan with patient/caregiver , who expressed understanding. Follow up as noted below. [email or web address] Not available 08/13/2024 11:11:43 Plan of Treatment Reminders Order Date Submit Date Provider Last Modified By Organization Details Last Modified Time Details Appointments None recorded. Lab D-dimer, quant, plasma 2023 024 [facility], [address], [place], [address], 12:05:32 TSH + free T4, serum 2023 024 [facility], [address], [address], [place], [address], 4 17:01:55 T3, free, serum or plasma 2023 024 [facility], [address], [address], [place], [address], 4 12:11:16 D-dimer, quant, plasma 2022 023 [facility], [address], [address], [place], [address], 3 16:01:03 TSH + free T4, serum 2022 023 [employer] [facility], [address], [address], [place], [address], 3 13:53:41 T3, free, serum or plasma 2022 023 [employer] [facility], [address], [address], [place], [address], 3 17:09:39 glucose tolerance test, 4 specimens 2022 023 [employer] [facility], [address], [address], [place], [address], 3 13:53:44 HIV 1+2 Ab + HIV1 p24 Ag, quantitati ve immunoassa y, serum 2022 023 [facility], [address], [address], [place], [address], 3 13:53:43 urinalysis complete, reflex culture 2022 023 [facility], [address], [address], [place], [address], 3 15:51:50 lipid panel, serum 2022 023 [facility], [address], [address], [place], [address], 3 13:53:45 hepatitis C virus Ab, serum 2022 023 [facility], [address], [address], [place], [address], 3 13:53:[address] [facility] 2023 [facility]24 [facility] [address], [place], [address], 4 08:12:14 endocrinol ogy referral 2023 024 [facility] , [address] [place], [address], 4 12:12:04 ophthalmol ogist referral [address] [facility] [place], [address] [facility] [facility], [place], [address], 5 08:11:29 ophthalmol ogist referral [email or web address] [facility] [place], [address], [place], [address], 5 08:11:29 endocrinol ogy referral 2023 024 [facility] , [address] [place], [address], 5 08:36:25 physical therapist referral 2022 023 [email or web address], [address], [address], [place], [address], 4 08:31:17 physical therapist referral 2022 023 [facility], [address], [address], [place], [address], 4 21:51:02 physical therapist referral 2022 023 [facility], [address], [address], [place], [address], 4 08:31:[address] referral [email or web address], [address] [place], [address], 4 08:30:19 clinical cardiac electrophy siologist referral 2022 023 [email or web address] [facility], [address], [address], [place], [address], 4 09:06:56 physical therapist referral 2022 023 [facility], [address], [address], [place], [address], 4 09:06:57 Procedures None recorded. Surgeries None recorded. Imaging electrocar diogram 2023 [facility], [address], [place], [address], 4 13:49:24 XR, chest, 2 view 2023 024 [facility], [address], [address], [place], [address], 4 10:27:04 US, breast, unilateral 2023 024 [facility], [address] [facility], [place], [address], 4 10:27:04 MAMMO, diagnostic , bilateral 2023 024 [facility], [address] [facility], [place], [address], 4 10:27:04 CT, head, w/o contrast 2023 024 [email or web address] [facility] Patient Access Centralized Scheduling, Centralized Scheduling, [address] , [place], [address], 4 08:44:16 US, breast, unilateral 2022 023 [facility], [address] [facility], [place], [address], 3 08:34:04 MAMMO, diagnostic , bilateral 2022 023 [facility], [address] [facility], [place], [address], 3 08:34:04 Medication Orders methimazol e 5 mg tablet 2023 024 [place] [id number], [address] [place], [place], [id number], 4 17:01:39 tramadol 50 mg tablet 2023 024 [place] [facility], [address] [place], [place], [id number], 4 14:59:23 Medrol (Brian) 4 mg tablets in a dose pack 2022 023 [facility] #59448, [address], [place], [place], [id number], 13:52:29 baclofen 10 mg tablet 2022 023 [facility][id number], [address], [place], [place], [id number], 3 13:52:28 cefdinir 300 mg capsule 2022 023 [facility] #84308, [address], [place], [place], [id number], 13:52:29 Patient TargetsNo targets recorded. Patient Instructions Encounter Date Encounter Id Patient Instructions Last Modified By Organization Details Last Modified Time 10/10/2023 [id number] advised to quit smoking [facility] Not available 10/10/2023 13:52:17 02/20/2024 [id number] -- must go to [facility] Emergency Room if one has any increasing symptoms or any visual changes, speech/hearing problems, confusion or memory symptoms, focal muscle weakness, numbness/tingling , unsteady balance/dizziness or gait problems, coordination problems, etc. [facility] Not available 02/20/2024 16:54:54 Reason for Referral Parole Board Member Referral for Gy necologic examination Referring Physician: Perry [facility], Encounter Date: 10/10/2023 Clinical Cardiac Electrophys iologist Referral for Syncope Referring Physician: Perry Mock [facility], Encounter Date: 10/10/2023 Physical Therapist Referral for Lumbar radiculopathy Referring Physician: Sonu [facility], Encounter Date: 10/10/2023 Physical Therapist Referral for Strain of right trapezius muscle Referring Physician: Perry Mock [facility], Encounter Date: 10/23/2023 Physical Therapist Referral for Pain in thoracic spine Referring Physician: [facility], Encounter Date: 10/23/2023 Physical Therapist Referral for Low back pain Referring Physician: Perry [facility], Encounter Date: 10/23/2023 Endocrinology Referral for H ypoglycemia Referring Physician: Perry Mock [facility], Encounter Date: 11/21/2023 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 Vertical Referral for Photophobia Referring Physician: Perry Mock [facility], Encounter Date: 02/20/2024 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 Vertical Referral for Corneal abrasion Referring Physician: Perry Mock [facility], Encounter Date: 02/20/2024 Endocrinology Referral for H ypoglycemia Referring Physician: Perry Mock [facility], Encounter Date: 08/13/2024 Parole Board Member Referral for Gy necologic examination Referring Physician: Perry Mock [facility], Encounter Date: 08/13/2024 Results Created Date Observation Date Name Description Value Unit Range Abnormal Flag Note LastModifiedBy Organization Detail LastModifiedTime 10/10/2010/10/2023 HS D DIMER hs D dimer 255 NG{fe u}/mL 0-500 D-Dim er value s less than or equal to 500 ng/mL FEU have a negat maria victoria predi ctive value of >95% for exclu michael of deep vein throm bosis and pulmo nary embol ism. In patie nts over 50 (who tend to have highe r bull l basel ine D-Dim er value s), recen t studi es sugge st age-a djust ed D-Dim er cutof f value s (calc ulate d as: age [year s] x 10 ng/mL ) resul t in equiv alent outco mes and no addit ional false negat maria victoria findi ngs. Not Available [facility] (Lab) [address], [place], [address], 10/10/2023 15:45:55 10/10/20 23 10/10/2023 UA REFLE X TO CULTU RE specimen type URINE, UNSPEC IFIED Not Available [facility] (Lab) [address] [facility], [place], [address], 10/10/2023 15:51:50 10/10/20 23 10/10/2023 UA REFLE X TO CULTU RE color YELLOW Not Available [facility] (Lab) [address] [place], [address], 10/10/2023 15:51:50 10/10/20 23 10/10/2023 UA REFLE X TO CULTU RE clarity TURBID Not Available [facility] (Lab) [place], [address], 10/10/2023 15:51:50 10/10/20 23 10/10/2023 UA REFLE X TO CULTU RE specific gravity 1.030 1.001- 1.030 Not Available [facility] (Lab) [address] [facility], [place], [address], 10/10/2023 15:51:50 10/10/20 23 10/10/2023 UA REFLE X TO CULTU RE pH, urine 6.5 5.0-9. 0 Not Available [facility] (Lab) [place], [address], 10/10/2023 15:51:50 10/10/20 23 10/10/2023 UA REFLE X TO CULTU RE leukocytes 250 neg abnormal Not Available [facility] (Lab) [place], [address], 10/10/2023 15:51:50 10/10/20 23 10/10/2023 UA REFLE X TO CULTU RE nitrite NEGATI VE neg normal Not Available [facility] (Lab) [address] [facility], [place], [address], 10/10/2023 15:51:50 10/10/20 23 10/10/2023 UA REFLE X TO CULTU RE protein 50 mg/dL <30 high Not Available [facility] (Lab) [place], [address], 10/10/2023 15:51:50 10/10/20 23 10/10/2023 UA REFLE X TO CULTU RE glucose NORMAL mg/dL norm normal Not Available [facility] (Lab) [place], [address], 10/10/2023 15:51:50 10/10/20 23 10/10/2023 UA REFLE X TO CULTU RE ketone NEGATI VE mg/dL neg normal Not Available [facility] (Lab) [place], [address], 10/10/2023 15:51:50 10/10/20 23 10/10/2023 UA REFLE X TO CULTU RE urobilinogen 3.0 mg/dL norm abnormal Not Available [facility] (Lab) [place], [address], 10/10/2023 15:51:50 10/10/20 23 10/10/2023 UA REFLE X TO CULTU RE bilirubin NEGATI VE mg/dL neg normal Not Available [facility] (Lab) [place], [address], 10/10/2023 15:51:50 10/10/20 23 10/10/2023 UA REFLE X TO CULTU RE blood NEGATI VE neg normal Not Available [facility] (Lab) [place], [address], 10/10/2023 15:51:50 10/10/20 23 10/10/2023 UA REFLE X TO CULTU RE culture indicated SPECIM EN SETUP FOR CULTUR E Not Available [facility] (Lab) [place], [address], 10/10/2023 15:51:50 10/10/20 23 10/10/2023 UA REFLE X TO CULTU RE mucous MANY /lpf Not Available [facility] (Lab) [address], [place], [address], 10/10/2023 15:51:50 10/10/20 23 10/10/2023 UA REFLE X TO CULTU RE WBC 6 /hpf <6 high Not Available [facility] (Lab) [place], [address], 10/10/2023 15:51:50 10/10/20 23 10/10/2023 UA REFLE X TO CULTU RE RBC 2 /hpf <6 Not Available [facility] (Lab) [address], [place], [address], 10/10/2023 15:51:50 10/10/20 23 10/10/2023 UA REFLE X TO CULTU RE squamous epithelial MODERA TE /hpf Not Available [facility] (Lab) [place], [address], 10/10/2023 15:51:50 10/10/20 23 10/10/2023 URINE CULTU RE header [facility] [address] Patie nt:MARIE ZAYAS 1078 Med Rec#: [id number] Order ing MD: NORIS MOCK : [birth year] Sex: F Locat ion: [facility] B Test: URINE CULTU RE Colle ct Date: 10-10 12:56 Acces michael #: [id number] Not Available [facility] (Lab) [place], [address], 10/12/2023 10:51:46 10/10/20 23 10/10/2023 URINE CULTU RE urine culture SPECI MEN DESCR IPTIO N - URINE , UNSPE CIFIE D SPECI AL REQUE STS - NO SPECI AL REQUE ST CULTU RE - POLYM ICROB IAL GROWT H CONSI STENT WITH BULL L GENIT AL ANALY . SUSCE PTIBI LITIE S NOT CULTU RE - ROUTI JEREMY PERFO RMED. REPOR T STATU S - FINAL 10/12 Not Available [facility] (Lab) [place], [address], 10/12/2023 10:51:46 10/10/20 23 10/10/2023 HEPAT ITIS C ANTIB MICHAEL hepatitis C antibody Negati ve negati ve Not Available [facility] (Main Location) [facility] [address] ,[place], [address], 10/11/2023 17:09:38 10/10/20 23 10/10/2023 DLDL dldl 71 mg/dL 0-100 Not Available [facility] (Main Location) [facility] [address] ,[place], [address], 10/11/2023 17:09:39 10/10/20 23 10/10/2023 FREE TRIIO DOTHY GERARDO E (FT3) FT3 9.3 pg/mL 1.5-4. 1 high Not Available [facility] (Main Location) [facility] [address] ,[place], [address], 10/11/2023 17:09:39 10/10/20 23 10/10/2023 FREE THYRO XINE (FT4) FT4 3.17 NG/dL 0.93-1 .70 high Not Available [facility] (Main Location) [address] ,, [place], [address], 10/11/2023 17:09:40 10/10/20 23 10/10/2023 HIV-1 /2 AG & AB HIV antibody Non-Re active non-re active Not Available [facility] (Main Location) [address] ,, [place], [address], 10/11/2023 17:09:40 10/10/20 23 10/10/2023 HIV-1 /2 AG & AB HIV P24 antigen Non-Re active non-re active Not Available [facility] (Main Location) [address] ,, [place], [address], 10/11/2023 17:09:40 10/10/20 23 10/10/2023 LIPID PANEL trigylceride s 64 mg/dL 0-150 Not Available [facility] (Main Location) [facility] ,, [place], [address], 10/11/2023 17:09:41 10/10/20 23 10/10/2023 LIPID PANEL cholesterol 155 mg/dL 0-200 Not Available [facility] (Main Location) [facility] ,, [place], [address], 10/11/2023 17:09:41 10/10/20 23 10/10/2023 LIPID PANEL uhdl 74 mg/dL 45-65 high Not Available [facility] (Main Location) [address] ,, [place], [address], 10/11/2023 17:09:41 10/10/20 23 10/10/2023 LIPID PANEL LDL, calculated 68 mg/dL 0-100 Not Available [facility] (Main Location) [address] ,, [place], [address], 10/11/2023 17:09:41 10/10/20 23 10/10/2023 LIPID PANEL LDL, measured 71 mg/dL <99 Not Available [facility] (Main Location) [address] ,, [place], [address], 10/11/2023 17:09:41 10/10/20 23 10/10/2023 LIPID PANEL LDL/HDL ratio 1 mg/dL 0-5 Not Available [facility] (Main Location) [address] ,, [place], [address], 10/11/2023 17:09:41 10/10/20 23 10/10/2023 LIPID PANEL VLDL 12.8 mg/dL 5.0-40 .0 Not Available [facility] (Main Location) [address] ,, [place], [address], 10/11/2023 17:09:41 10/10/20 23 10/10/2023 LIPID PANEL cholesterol/ HDL ratio 2.09 0.00-5 .00 Not Available [facility]Main Location[facility] [address] ,, [place], [address], 10/11/2023 17:09:41 10/10/20 23 10/10/2023 THYRO ID STIMU LATIN G HORMO NE (TSH) TSH 0.01 ?IU/m L 0.27-4 .20 low Not Available [facility] (Main Location) [facility] ,, [place], [address], 10/11/2023 17:09:41 10/10/20 23 10/10/2023 HIV-1 /2 AG & AB HIV antibody Non-Re active non-re active Not Available [facility] (Main Location) [facility] ,, [place], [address], 10/11/2023 17:09:46 10/10/20 23 10/10/2023 HIV-1 /2 AG & AB HIV P24 antigen Non-Re active non-re active Not Available [facility] (Main Location) [facility] ,, [place], [address], 10/11/2023 17:09:46 10/15/20 23 10/15/2023 GLUCO SE ADY ANCE TESTI NG, 3 HR glucose fasting 86 mg/dL 74-99 Not Available [facility] (Main Location) [facility] ,, [place], [address], 10/16/2023 17:50:30 10/15/20 23 10/15/2023 GLUCO SE ADY ANCE TESTI NG, 3 HR glucose, 1 hour 105 mg/dL 74-199 Not Available [facility] (Main Location) [facility] [address] ,, [place], [address], 10/16/2023 17:50:30 10/15/20 23 10/15/2023 GLUCO SE ADY ANCE TESTI NG, 3 HR glucose, 2 hour 115 mg/dL 74-139 Not Available [facility] (Main Location) [facility] [address] ,, [place], [address], 10/16/2023 17:50:30 10/15/20 23 10/15/2023 GLUCO SE ADY ANCE TESTI NG, 3 HR glucose, 3 hour 40 Result s verifi ed by repeat analys is. mg/dL 74-139 low Not Available [facility] (Main Location) [facility] [address] ,, [place], [address], 10/16/2023 17:50:30 10/15/20 23 10/15/2023 GLUCO SE ADY ANCE TESTI NG, 3 HR glucose fasting 86 mg/dL 74-99 Not Available [facility] (Main Location) [address] [place], [place] [address] ,, [place], [address], 10/16/2023 17:50:30 10/15/20 23 10/15/2023 GLUCO SE ADY ANCE TESTI NG, 3 HR glucose, 1 hour 105 mg/dL 74-199 Not Available [facility] (Main Location) [facility] [address] ,, [place], [address], 10/16/2023 17:50:30 10/15/20 23 10/15/2023 GLUCO SE ADY ANCE TESTI NG, 3 HR glucose, 2 hour 115 mg/dL 74-139 Not Available [facility] (Main Location) [facility] [address] ,, [place], [address], 10/16/2023 17:50:30 10/15/20 23 10/15/2023 GLUCO SE ADY ANCE TESTI NG, 3 HR glucose, 3 hour 40 Result s verifi ed by repeat analys is. mg/dL 74-139 low Not Available [facility] (Main Location) [facility] [address] ,, [place], [address], 10/16/2023 17:50:30 10/15/20 23 10/15/2023 GLUCO SE ADY ANCE TESTI NG, 3 HR glucose fasting 86 mg/dL 74-99 Not Available [facility] (Main Location) [facility] [address] ,, [place], [address], 10/16/2023 17:50:30 10/15/20 23 10/15/2023 GLUCO SE ADY ANCE TESTI NG, 3 HR glucose, 1 hour 105 mg/dL 74-199 Not Available [facility] (Main Location) [facility] [address] ,, [place], [address], 10/16/2023 17:50:30 10/15/20 23 10/15/2023 GLUCO SE ADY ANCE TESTI NG, 3 HR glucose, 2 hour 115 mg/dL 74-139 Not Available [facility] (Main Location) [facility] [address] ,, [place], [address], 10/16/2023 17:50:30 10/15/20 23 10/15/2023 GLUCO SE ADY ANCE TESTI NG, 3 HR glucose, 3 hour 40 Result s verifi ed by repeat analys is. mg/dL 74-139 low Not Available [facility] (Main Location) [facility] [address] ,, [place], [address], 10/16/2023 17:50:30 10/15/20 23 10/15/2023 GLUCO SE ADY ANCE TESTI NG, 3 HR glucose fasting 86 mg/dL 74-99 Not Available [facility] (Main Location) [address] [place], [place] [address] ,, [place], [address], 10/16/2023 17:50:30 10/15/20 23 10/15/2023 GLUCO SE ADY ANCE TESTI NG, 3 HR glucose, 1 hour 105 mg/dL 74-199 Not Available [facility] (Main Location) [address] [place] [address] [address] ,, [place], [address], 10/16/2023 17:50:30 10/15/20 23 10/15/2023 GLUCO SE ADY ANCE TESTI NG, 3 HR glucose, 2 hour 115 mg/dL 74-139 Not Available [facility] (Main Location) [address] [place], [place] [address]vey [address] ,, [place], [address], 10/16/2023 17:50:30 10/15/20 23 10/15/2023 GLUCO SE ADY ANCE TESTI NG, 3 HR glucose, 3 hour 40 Result s verifi ed by repeat analys is. mg/dL 74-139 low Not Available [facility] (Main Location) [address] [place], [place] [address] ,, [place], [address], 10/16/2023 17:50:30 02/20/20 24 02/20/2024 FREE T3 triiodothyro nine (T3), free 14.89 pg/mL 2.00-4 .40 high NOTE: REFER ENCE RANGE S FOR PATIE NTS < 16 YEARS OF AGE HAS NOT BEEN VALID ATED. FOR INFOR MATIO N ONLY. PREGN ANT FEMAL E: 1st Trime ster: 1.6-3 .3 pg/mL 2nd Trime ster: Not Estab lishe d 3rd Trime ster: 1.0-3 .2 pg/mL Not Available [facility] [address], [place], [address], 02/23/2024 12:11:16 02/20/20 24 02/20/2024 FREE T4 thyroxine (T4), free 4.52 NG/dL 0.82-1 .77 high Not Available [facility] [address], [place], [address], 02/23/2024 12:11:16 02/20/20 24 02/20/2024 THYRO ID-ST IM. HORMO NE (TSH) , HIGH- SENSI TIVE thyroid-stim . hormone (TSH), hs 0.01 uIU/m L 0.27-4 .20 low Not Available [facility] [address] [facility] [address], [place], [address], 02/23/2024 12:11:17 10/24/20 23 10/17/2023 CT, thora cic spine , w/o contr ast No observ ation record ed. [address], [place], [address], 11/21/2023 14:56:41 08/13/20 24 08/19/2024 elect rocar diogr am No observ ation record ed. [email or web address] [address], [place], [address], 08/19/2024 13:49:24 08/13/20 24 08/13/2024 elect rocsuzanna diogr am No observ ation record ed. alice Not Available 2023 13:49:41 Result Notes None recorded. 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 2022 Perry Mock MD [address], [place], [address], [facility] 3 12:55:00 Syncope 515471793 Active 2022 Perry Mock MD [address], [place], [address], [facility] 3 12:56:23 Dyspnea on exertion 16349280 Active 2022 Perry Mock MD [address], [place], [address], [facility] 13:00:28 Hyperthyroidis m 61263990 Active 2022 Perry Mock MD [address], [place], [address], [facility] 3 23:06:14 Sore nostril 081941564 Active 2022 Perry Mock MD [address], [place], [address], [facility] 3 16:42:41 Sacral back pain 63760136 Active 2022 Perry Mock MD [address], [place], [address], [facility] 3 16:44:02 Nicotine dependence with current use 497868850 Active 2022 Perry Mock MD [address], [place], [address], [facility] 3 16:47:10 Problem Notes None recorded. Procedures Surgical History Date Name Laterality Status Provider Name and Address Organization Details Recorded Time 0 section completed Perry Mock MD [address], [place], [address], [facility] 07/19/2023 12:47:46 Imaging Results None recorded. Procedure Notes None recorded. Medical Equipment None Reported. Allergies No known drug allergies Medications Name Sig Start Date Stop Date Status Note LastModified by Organization Details LastModified Time cyclobenzap rine 10 mg tablet active Not Available Not Available Not Available ibuprofen 800 mg tablet active Not Available Not Available Not Available hydrocodone 5 mg-acetamin ophen 325 mg tablet active Not Available Not Available No t Available tramadol 50 mg tablet 1 tab taken (together w/ 1 tab of Tylenol 650 mg) once, up to twice a day as needed active Not Available Not Available No t Available amoxicillin 875 mg tablet 08/13 completed Not Available Not Available Not Available OneTouch Ultra Test strips 1QD active Not Available Not Available Not Available baclofen 10 mg tablet 1 tab once, up to 3 times a day as needed; can cause drowsines s active Not Available Not Available No t Available benzonatate 100 mg capsule 08/13 completed Not Available Not Available Not Available promethazin e 25 mg tablet active Not Available Not Available Not Available methimazole 5 mg tablet 2 pills in the AM and 1 pill 12 hours later. active Not Available Not Available No t Available methylpredn isolone 4 mg tablets in a dose pack ud active Not Available Not Available Not Available ondansetron 4 mg disintegrat ing tablet active Not Available Not Available N ot Available cefdinir 300 mg capsule Take 1 capsule every 12 hours by oral route. active Not Available Not Available No t Available naproxen 500 mg tablet active Not Available Not Available Not Available moxifloxaci n 0.5 % eye drops active Not Available Not Available Not Available nitrofurant oin monohydrate /macrocryst als 100 mg capsule active Not Available Not Available Not Available OneTouch Ultra2 Meter active Not Available Not Available Not Available OneTouch Delica Plus Lancet 30 gauge active Not Available Not Available Not Available Vitals Date Recorded Body height Heart rate Respiratory rate Body temperature Body mass index (BMI) Body weight Systolic And Diastolic Provider Name and Address Organization Details Last Updated DateTime 4 157.48 cm 112 /min 16 /min 98.7 [degF] 20.5 kg/m2 07689.3 5 g 122/85 mm[Hg] Ana Helton [facility] 4 14:33:14 Date Recorded Body height Heart rate Respiratory rate Body temperature Body mass index (BMI) Body weight Systolic And Diastolic Provider Name and Address Organization Details Last Updated DateTime 4 157.48 cm 94 /min 16 /min 97.6 [degF] 21.8 kg/m2 88860.4 9 g 120/83 mm[Hg] [facility] 16:[facility]52 Date Recorded Body height Heart rate Respiratory rate Body temperature Body mass index (BMI) Body weight Systolic And Diastolic Provider Name and Address Organization Details Last Updated DateTime 4 157.48 cm 76 /min 16 /min 97.6 [degF] 21.8 kg/m2 68846.4 9 g 127/82 mm[Hg] [facility] 11:12[facility]00 Date Recorded Body height Provider Name an d Address Organization Details Last Updated DateTime 10/10/2023 157.48 cm Perry Mock MD [address], [place], [address] 10/10/2023 13:15:20 Date Recorded Heart rate Respiratory rate Body temperature Body weight Systolic And Diastolic Provider Name and Address Organization Details Last Updated DateTime 3 92 /min 16 /min 97.6 [degF] 32369.9 g 121/83 mm[Hg] [facility] 13:23[facility]41 Date Recorded Body height Heart rate Respiratory rate Body temperature Body mass index (BMI) Body weight Systolic And Diastolic Provider Name and Address Organization Details Last Updated DateTime 3 157.48 cm 76 /min 16 /min 97.3 [degF] 21.6 kg/m2 21784.9 g 122/82 mm[Hg] [facility] 15:17:52 Social History Question Answer Notes LastModified by Organizat ion Details LastModified Time Tobacco Smoking Status Former Smoker -- does not do Cigarrettes; but smoke Marijuana around January 2023 Perry Mock MD [address], [place], [address], [facility] 07/19/2023 12:51:10 Do You Have An Advance Directive? No [email or web address] Information not available 10/23/2023 Do You Wear A Helmet When Biking? No [email or web address] Information not available 10/23/2023 Are You Blind Or Do You Have Difficulty Seeing? No [email or web address] Information not available 10/23/2023 Is Blood Transfusion Acceptable In An Emergency? Yes [email or web address] Information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
--- OUTSIDE RECORDS SUMMARY | 2025-05-09 06:42 | XMS_ITS | Data Portability ---
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 Plan of Treatment Reminders Order Date Submit Date Provider Last Modified By Organization Details Last Modified Time Details Appointments None recorded . Lab bacteria l vaginosi s + vaginiti s panel, vaginal 2017 018 YOUNG HARRIS [facility], [address], [place], [address], 8 06:07:14 HSV (1+2) DNA, qual, PCR, unspecif ied specimen 2017 018 YOUNG HARRIS [facility], [address], [place], [address], 8 06:07:15 pregnanc y test, urine 2017 018 [email or web address] In-Office Order, Internal Use Only DO Not Attach Compendium DO Not Attach Compendium, Do Not Delete/merge, [id number] 8 12:20:42 rapid strep group A, throat 2017 018 oajao In-Office Order, Internal Use Only DO Not Attach Compendium DO Not Attach Compendium, Do Not Delete/merge, [id number] 8 13:14:38 rapid flu (A+B) 2017 018 [email or web address] In-Office Order, Internal Use Only DO Not Attach Compendium DO Not Attach Compendium, Do Not Delete/merge, [id number] 8 13:14:38 HIV 1+2 AB + HIV 1 p24 Ag, qualitat maria victoria immunoas say, serum 2017 [facility], [address], [place], [address], 8 12:19:50 hemoglob in S (hbs), presence , blood 2017 018 [facility], [address], [place], [address], 8 12:19:58 CT + NG + TV, DNA, urine/sw ab 2017 018 YOUNG HARRIS [facility], [address], [place], [address], 8 11:29:17 rapid strep group A, throat 2017 018 LUDA In-Office Order, Internal Use Only DO Not Attach Compendium DO Not Attach Compendium, Do Not Delete/merge, [id number] 8 16:24:44 rapid flu (A+B) 2017 018 LUDA In-Office Order, Internal Use Only DO Not Attach Compendium DO Not Attach Compendium, Do Not Delete/merge, [id number] 8 16:24:44 Referral physical therapis t referral 2022 023 [facility], [address] [place], [address], 3 17:51:12 pain manageme nt referral 2022 023 [facility] Chey Ruiz MD, [address], [place], [address], 3 17:51:14 pain manageme nt referral 2022 023 billie Ruiz MD, [address], [place], [address], 3 17:51:13 Procedures None recorded . Surgeries None recorded . Imaging XR, lumbosac ral spine, 2 or 3 view [address] ([facility]), [address] [place], [address], 3 14:40:22 XR, chest, 2 view - Persiste nt cough 2017 018 [facility] ([facility]), [address] [place], [address], 8 16:05:19 Medication Orders Ortho Tri-Cycl en (28) 0.18 mg(7)/0. 215mg(7) /0.25 mg(7)-0. 035 mg tablet 2017 018 [id number] [address] [place], [place], [id number], 3 14:11:32 Debrox 6.5 % ear drops 2017 018 [facility] #[id number], [address] [place], [place], [id number], 8 11:33:28 azithrom ycin 250 mg tablet 2017 018 [facility] #[id number], [address] [place], [place], [id number], 8 11:33:12 Tessalon Perles 100 mg capsule 2017 018 [facility] #[id number], [address] [place], [id number], 8 11:33:18 Patient TargetsNo targets recorded. Patient Instructions Encounter Date Encounter Id Patient Instructions Last Modified By Organization Details Last Modified Time 09/18/2018 [id number] sore throat: car e instructions oajao Not available 09/18/2018 16:01:59 upper respirator y infection (cold): care instructions oajao Not available 09/18/2018 16:20:50 Conservative management She should be able to return to work 09/22/2018 OTC meds Fluids oajao Not available 09/18/2018 16:30:21 The results were discussed, there is no role for antibiotics, this appears viral oajao Not available 09/18/2018 16:30:07 09/23/2018 [id number] sore throat: car e instructions oajao Not available 09/23/2018 13:14:38 upper respirator y infection (cold): care instructions oajao Not available 09/23/2018 13:25:02 gastroenteritis: care instructions oajao Not available 09/23/2018 13:26:57 CXR if there is no improvement Brissa/Regina santos. side effects were discussed Labs RTW 09/28/18 ER if her symptoms worsen oajao Not available 09/23/2018 13:55:12 Lab results were discussed oajao Not available 09/23/2018 13:54:21 04/25/2023 [id number] pulmonary function test* dmilesma Not available 11/15/2023 14:28:30 6 minute walk test* dmilesma Not available 11/15/2023 14:28:30 Reason for Referral Physical Therapist Referral for Chronic low back pain Referring Physician: Aleksey Bolden, Internal Medicine, Encounter Date: 04/25/2023 Pain Management Referral for Chronic musculoskeletal pain Referring Physician: Aleksey Bolden, Internal Medicine, Encounter Date: 04/25/2023 Pain Management Referral for Chronic low back pain Referring Physician: Aleksey Bolden, Internal Medicine, Encounter Date: 04/25/2023 Results Created Date Observation Date Name Description Value Unit Range Abnormal Flag Note LastModifiedBy Organization Detail LastModifiedTime 10/17/20 18 10/17/2018 pregn peterson test, urine HCG negati ve Not Available In-Office Order Internal Use Only DO Not Attach Compendium DO Not Attach Compendium, Do Not Delete/merge, [id number] 10/17/2018 12:08:40 09/18/20 18 09/18/2018 rapid flu (A+B) Flu A negati ve Not Available In-Office Order Internal Use Only DO Not Attach Compendium DO Not Attach Compendium, Do Not Delete/merge, [id number] 09/18/2018 16:09:25 09/18/20 18 09/18/2018 rapid flu (A+B) Flu B negati ve Not Available In-Office Order Internal Use Only DO Not Attach Compendium DO Not Attach Compendium, Do Not Delete/merge, [id number] 09/18/2018 16:09:25 09/18/20 18 09/18/2018 rapid strep group A, throa t Strep negati ve Not Available In-Office Order Internal Use Only DO Not Attach Compendium DO Not Attach Compendium, Do Not Delete/merge, [id number] 09/18/2018 15:58:23 09/22/20 18 09/23/2018 CBC w/ auto diff WBC 7.8 x10e3 /uL 3.4-10 .8 Not Available [facility] ([facility]) [address] [place], [address], 09/23/2018 13:11:42 09/22/20 18 09/23/2018 CBC w/ auto diff RBC 5.57 x10e6 /uL 3.77-5 .28 above high normal Not Available [facility] ([facility]) [address] [place], [address], 09/23/2018 13:11:42 09/22/20 18 09/23/2018 CBC w/ auto diff hemoglobin 12.4 g/dL 11.1-1 5.9 Not Available [facility] ([facility]) [address] [place], [address], 09/23/2018 13:11:42 09/22/20 18 09/23/2018 CBC w/ auto diff hematocrit 39.5 % 34.0-4 6.6 Not Available [facility] ([facility]) [address] [place], [address], 09/23/2018 13:11:42 09/22/20 18 09/23/2018 CBC w/ auto diff MCV 71 fL 79-97 below low normal Not Available [facility] ([facility]) [address] [place], [address], 09/23/2018 13:11:42 09/22/20 18 09/23/2018 CBC w/ auto diff MCH 22.3 pg 26.6-3 3.0 below low normal Not Available [facility] ([facility]) [address] [place], [address], 09/23/2018 13:11:42 09/22/20 18 09/23/2018 CBC w/ auto diff MCHC 31.4 g/dL 31.5-3 5.7 below low normal Not Available [facility] ([facility]) [address] [place], [address], 09/23/2018 13:11:42 09/22/20 18 09/23/2018 CBC w/ auto diff RDW 15.6 % 12.3-1 5.4 above high normal Not Available [facility] ([facility]) [address] [place], [address], 09/23/2018 13:11:42 09/22/20 18 09/23/2018 CBC w/ auto diff platelets 298 x10e3 /uL 150-37 9 Not Available [facility] ([facility]) [address] [place] [address], [address], 09/23/2018 13:11:42 09/22/20 18 09/23/2018 CBC w/ auto diff neutrophils 70 % not estab. Not Available [facility] ([facility]) [address] [facility], [place], [address], 09/23/2018 13:11:42 09/22/20 18 09/23/2018 CBC w/ auto diff lymphs 24 % not estab. Not Available [facility] ([facility]) [address] [facility], [place], [address], 09/23/2018 13:11:42 09/22/20 18 09/23/2018 CBC w/ auto diff monocytes 6 % not estab. Not Available [facility] ([facility]) [address] [facility], [place], [address], 09/23/2018 13:11:42 09/22/20 18 09/23/2018 CBC w/ auto diff eos 0 % not estab. Not Available [facility] ([facility]) [address] [place], [address], 09/23/2018 13:11:42 09/22/20 18 09/23/2018 CBC w/ auto diff basos 0 % not estab. Not Available [facility] ([facility]) [address] [place], [address], 09/23/2018 13:11:42 09/22/20 18 09/23/2018 CBC w/ auto diff immature cells SKIN WASHER Not Available [facility] ([facility]) [address] [place], [address], 09/23/2018 13:11:42 09/22/20 18 09/23/2018 CBC w/ auto diff neutrophils (absolute) 5.4 x10e3 /uL 1.4-7. 0 Not Available [facility] ([facility]) [address] [place], [address], 09/23/2018 13:11:42 09/22/20 18 09/23/2018 CBC w/ auto diff lymphs (absolute) 1.9 x10e3 /uL 0.7-3. 1 Not Available [facility] ([facility]) [address] [place], [address], 09/23/2018 13:11:42 09/22/20 18 09/23/2018 CBC w/ auto diff monocytes(ab solute) 0.5 x10e3 /uL 0.1-0. 9 Not Available [facility] ([facility]) [address] [facility], [place], [address], 09/23/2018 13:11:42 09/22/20 18 09/23/2018 CBC w/ auto diff eos (absolute) 0.0 x10e3 /uL 0.0-0. 4 Not Available [facility] ([facility]) [address] [facility], [place], [address], 09/23/2018 13:11:42 09/22/20 18 09/23/2018 CBC w/ auto diff baso (absolute) 0.0 x10e3 /uL 0.0-0. 2 Not Available [facility] ([facility]) [address] [facility], [place], [address], 09/23/2018 13:11:42 09/22/20 18 09/23/2018 CBC w/ auto diff immature granulocytes 0 % not estab. Not Available [facility] ([facility]) [address] [facility], [place], [address], 09/23/2018 13:11:42 09/22/20 18 09/23/2018 CBC w/ auto diff immature grans (abs) 0.0 x10e3 /uL 0.0-0. 1 Not Available [facility] ([facility]) [address] [place], [address], 09/23/2018 13:11:42 09/22/20 18 09/23/2018 CBC w/ auto diff NRBC SKIN WASHER Not Available [facility] ([facility]) [address] [place] [address], [address], 09/23/2018 13:11:42 09/22/20 18 09/23/2018 CBC w/ auto diff hematology comments: SKIN WASHER Not Available [facility] ([facility]) [address] [facility] [place], [address], 09/23/2018 13:11:42 09/22/20 18 09/23/2018 CMP, serum or plasm a glucose 96 mg/dL 65-99 Not Available [facility] ([facility]) [address] [facility] [place], [address], 09/23/2018 13:11:43 09/22/20 18 09/23/2018 CMP, serum or plasm a BUN 12 mg/dL 6-20 Not Available [facility] ([facility]) [address] [facility] [place], [address], 09/23/2018 13:11:43 09/22/20 18 09/23/2018 CMP, serum or plasm a creatinine 0.77 mg/dL 0.57-1 .00 Not Available [facility] ([facility]) [address] [place], [address], 09/23/2018 13:11:43 09/22/20 18 09/23/2018 CMP, serum or plasm a eGFR if nonafricn AM 106 mL/mi n/1.7 3 >59 Not Available [facility] ([facility]) [address] [facility] [place], [address], 09/23/2018 13:11:43 09/22/20 18 09/23/2018 CMP, serum or plasm a eGFR if africn AM 122 mL/mi n/1.7 3 >59 Not Available [facility] ([facility]) [address] [facility] [place], [address], 09/23/2018 13:11:43 09/22/20 18 09/23/2018 CMP, serum or plasm a BUN/creatini ne ratio 16 9-23 Not Available [facility] ([facility]) [address] [place] [address] [place], [address], 09/23/2018 13:11:43 09/22/20 18 09/23/2018 CMP, serum or plasm a sodium 142 mmol/ L 134-14 4 Not Available [facility] ([facility]) [address] [place], [address], 09/23/2018 13:11:43 09/22/20 18 09/23/2018 CMP, serum or plasm a potassium 4.5 mmol/ L 3.5-5. 2 Not Available [facility] ([facility]) [address] [place] [address], [address], 09/23/2018 13:11:43 09/22/20 18 09/23/2018 CMP, serum or plasm a chloride 102 mmol/ L 96-106 Not Available [facility] ([facility]) [address] [place] [address], [address], 09/23/2018 13:11:43 09/22/20 18 09/23/2018 CMP, serum or plasm a carbon dioxide, total 20 mmol/ L 20-29 Not Available [facility] ([facility]) [address] [place] [address], [address], 09/23/2018 13:11:43 09/22/20 18 09/23/2018 CMP, serum or plasm a calcium 9.6 mg/dL 8.7-10 .2 Not Available [facility] ([facility]) [address] [place] [address], [address], 09/23/2018 13:11:43 09/22/20 18 09/23/2018 CMP, serum or plasm a protein, total 7.6 g/dL 6.0-8. 5 Not Available [facility] ([facility]) [address] [place] [address], [address], 09/23/2018 13:11:43 09/22/20 18 09/23/2018 CMP, serum or plasm a albumin 4.6 g/dL 3.5-5. 5 Not Available [facility] ([facility]) [address] [place], [address], 09/23/2018 13:11:43 09/22/20 18 09/23/2018 CMP, serum or plasm a globulin, total 3.0 g/dL 1.5-4. 5 Not Available [facility] ([facility]) [address] [place], [address], 09/23/2018 13:11:43 09/22/20 18 09/23/2018 CMP, serum or plasm a A/G ratio 1.5 1.2-2. 2 Not Available [facility] ([facility]) [address] [place], [address], 09/23/2018 13:11:43 09/22/20 18 09/23/2018 CMP, serum or plasm a bilirubin, total 0.4 mg/dL 0.0-1. 2 Not Available [facility] ([facility]) [address] [place], [address], 09/23/2018 13:11:43 09/22/20 18 09/23/2018 CMP, serum or plasm a alkaline phosphatase 69 IU/L 39-117 Not Available [facility]) [address] [place] [address], [address], 09/23/2018 13:11:43 09/22/20 18 09/23/2018 CMP, serum or plasm a AST (SGOT) 18 IU/L 0-40 Not Available [facility] ([facility]) [address] [place] [address], [address], 09/23/2018 13:11:43 09/22/20 18 09/23/2018 CMP, serum or plasm a ALT (SGPT) 11 IU/L 0-32 Not Available [facility] ([facility]) [address] [place] [address], [address], 09/23/2018 13:11:43 09/22/20 18 09/23/2018 urina lysis , compl ete specific gravity TNP Test Not Perfo rmed. Patie nt was unabl e to void at the time of colle ction . The follo wing test( s) were not perfo rmed: Not Available [facility] ([facility]) [address] [place], [address], 09/23/2018 13:11:44 09/22/20 18 09/23/2018 urina lysis , compl ete pH TNP Test not perfo rmed Not Available [facility] ([facility]) [address] [place], [address], 09/23/2018 13:11:44 09/22/20 18 09/23/2018 urina lysis , compl ete urine-color SKIN WASHER Not Available [facility] ([facility]) [address] [place], [address], 09/23/2018 13:11:44 09/22/20 18 09/23/2018 urina lysis , compl ete appearance SKIN WASHER Not Available [facility] ([facility]) [address] [place], [address], 09/23/2018 13:11:44 09/22/20 18 09/23/2018 urina lysis , compl ete WBC esterase SKIN WASHER Not Available [facility]) [address] [facility], [place], [address], 09/23/2018 13:11:44 09/22/20 18 09/23/2018 urina lysis , compl ete protein TNP Test not perfo rmed Not Available [facility] ([facility]) [address] [place], [address], 09/23/2018 13:11:44 09/22/20 18 09/23/2018 urina lysis , compl ete glucose TNP Test not perfo rmed Not Available [facility] ([facility]) [address] [place], [address], 09/23/2018 13:11:44 09/22/20 18 09/23/2018 urina lysis , compl ete ketones TNP Test not perfo rmed Not Available [facility] ([facility]) [address] [facility], [place], [address], 09/23/2018 13:11:44 09/22/20 18 09/23/2018 urina lysis , compl ete occult blood SKIN WASHER Not Available [facility]) [address] [facility], [place], [address], 09/23/2018 13:11:44 09/22/20 18 09/23/2018 urina lysis , compl ete bilirubin SKIN WASHER Not Available [facility] ([facility]) [address] [place], [address], 09/23/2018 13:11:44 09/22/20 18 09/23/2018 urina lysis , compl ete urobilinogen ,semi-qn SKIN WASHER Not Available [facility] ([facility]) [address] [facility], [place], [address], 09/23/2018 13:11:44 09/22/20 18 09/23/2018 urina lysis , compl ete nitrite, urine SKIN WASHER Not Available [facility] ([facility]) [address] [place], [address], 09/23/2018 13:11:44 09/22/20 18 09/23/2018 urina lysis , compl ete microscopic examination SKIN WASHER Not Available [facility]) [address] [facility], [place], [address], 09/23/2018 13:11:44 09/22/20 18 09/23/2018 lipid panel , serum cholesterol, total 185 mg/dL 100-19 9 Not Available [facility] ([facility]) [address] [place] [address], [address], 09/23/2018 13:11:44 09/22/20 18 09/23/2018 lipid panel , serum triglyceride s 44 mg/dL 0-149 Not Available [facility] ([facility]) [address] [facility], [place], [address], 09/23/2018 13:11:44 09/22/20 18 09/23/2018 lipid panel , serum HDL cholesterol 78 mg/dL >39 Not Available [facility] ([facility]) [address] [place], [address], 09/23/2018 13:11:44 09/22/20 18 09/23/2018 lipid panel , serum VLDL cholesterol vu 9 mg/dL 5-40 Not Available [facility] ([facility]) [address] [place], [address], 09/23/2018 13:11:44 09/22/20 18 09/23/2018 lipid panel , serum LDL cholesterol calc 98 mg/dL 0-99 Not Available [facility] ([facility]) [address] [place], [address], 09/23/2018 13:11:44 09/22/20 18 09/23/2018 lipid panel , serum comment: SKIN WASHER Not Available [facility] ([facility]) [address] [facility], [place], [address], 09/23/2018 13:11:44 09/22/20 18 09/23/2018 iron + total iron- rylie ng capac ity (TIBC ), serum iron bind.cap.(TI BC) 372 ug/dL 250-45 0 Not Available [facility] ([facility]) [address] [place], [address], 09/23/2018 13:11:45 09/22/20 18 09/23/2018 iron + total iron- rylie ng capac ity (TIBC ), serum UIBC 296 ug/dL 131-42 5 Not Available [facility] ([facility]) [address] [place] [address], [address], 09/23/2018 13:11:45 09/22/20 18 09/23/2018 iron + total iron- rylie ng capac ity (TIBC ), serum iron 76 ug/dL 27-159 Not Available [facility] ([facility]) [address] [place], [address], 09/23/2018 13:11:45 09/22/20 18 09/23/2018 iron + total iron- rylie ng capac ity (TIBC ), serum iron saturation 20 % 15-55 Not Available [facility] ([facility]) [address] [place], [address], 09/23/2018 13:11:45 09/22/20 18 09/23/2018 minor tin, serum or plasm a ferritin, serum 29 NG/mL 15-150 Not Available [facility] ([facility]) [address] [place] [address], [address], 09/23/2018 13:11:45 09/22/20 18 09/23/2018 unabl e to void unable to void Commen t Patie nt unabl e to void. Urine to be colle cted at a later date. Not Available [facility] ([facility]) [address] [place], [address], 09/23/2018 13:11:46 09/22/20 18 09/23/[address] probl em request problem TNP Test Not Perfo rmed. Patie nt was unabl e to void at the time of colle ction . The follo wing test( s) were not perfo rmed: TEST: 49502 [id number] Urina lysis , Routi ne Not Available [facility] ([facility]) [address] [place], [address], 09/23/2018 13:11:47 09/23/20 18 09/23/2018 rapid flu (A+B) Flu A negati ve Not Available In-Office Order Internal Use Only DO Not Attach Compendium DO Not Attach Compendium, Do Not Delete/merge, [id number] 09/23/2018 13:11:48 09/23/20 18 09/23/2018 rapid flu (A+B) Flu B negati ve Not Available In-Office Order Internal Use Only DO Not Attach Compendium DO Not Attach Compendium, Do Not Delete/merge, [id number] 09/23/2018 13:11:48 09/23/20 18 09/23/2018 rapid strep group A, throa t Strep negati ve Not Available In-Office Order Internal Use Only DO Not Attach Compendium DO Not Attach Compendium, Do Not Delete/merge, [id number] 09/23/2018 13:11:29 10/17/20 18 10/21/2018 bacte rial vagin osis + vagin itis panel , vagin al trich vag by ALENA Negati ve negati ve Not Available [facility] ([facility]) [address] [place], [address], 10/23/2018 06:07:14 10/17/20 18 10/21/2018 bacte rial vagin osis + vagin itis panel , vagin al chlamydia trachomatis, ALENA Negati ve negati ve Not Available [facility] ([facility]) [address] [place] [address], [address], 10/23/2018 06:07:14 10/17/20 18 10/21/2018 bacte rial vagin osis + vagin itis panel , vagin al neisseria gonorrhoeae, ALENA Negati ve negati ve Not Available [facility] ([facility]) [address] [place], [address], 10/23/2018 06:07:14 10/17/20 18 10/23/2018 bacte rial vagin osis + vagin itis panel , vagin al atopobium vaginae Low - 0 score Not Available [facility] ([facility]) [address] [place], [address], 10/23/2018 06:07:14 10/17/20 18 10/23/2018 bacte rial vagin osis + vagin itis panel , vagin al bvab 2 Low - 0 score Not Available [facility] ([facility]) [address] [place], [address], 10/23/2018 06:07:14 10/17/20 18 10/23/2018 bacte rial vagin osis + vagin itis panel , vagin al megasphaera 1 Low - 0 score Calcu late total score by christie sauceda the 3 indiv idual bacte rial vagin osis (BV) marke r score s toget her. Total score is inter prete d as follo ws: Total score 0-1: Indic ates the absen ce of BV. Total score 2: Indet ermin ate for BV. Addit ional clini vu data shoul d be evalu ated to estab mark a diagn osis. Total score 3-6: Indic ates the prese nce of BV. This test was devel oped and its perfo rmanc e chalo cteri stics deter mined by [employer]. It has not been clear ed or appro blanca by the Food and Drug Admin istra tion. The FDA has deter mined that such clear ance or appro francisco is not neces chaya. Not Available [facility] ([facility]) [address] [facility], [place], [address], 10/23/2018 06:07:14 10/17/20 18 10/23/2018 bacte rial vagin osis + vagin itis panel , vagin al denny albicans, ALENA Negati ve negati ve Not Available [facility] ([facility]) [address] [place], [address], 10/23/2018 06:07:14 10/17/20 18 10/23/2018 bacte rial vagin osis + vagin itis panel , vagin al denny glabrata, ALENA Negati ve negati ve This test was devel oped and its perfo rmanc e chalo cteri stics deter mined by [employer]. It has not been clear ed or appro blanca by the Food and Drug Admin istra tion. The FDA has deter mined that such clear ance or appro francisco is not neces chaya. Not Available [facility] ([facility]) [address] [facility], [place], [address], 10/23/2018 06:07:14 10/17/20 18 10/22/2018 HSV (1+2) DNA, qual, PCR, unspe cifie d speci men hsv 1 ALENA Negati ve negati ve Not Available [facility] ([facility]) [address] [facility], [place], [address], 10/23/2018 06:07:15 10/17/20 18 10/22/2018 HSV (1+2) DNA, qual, PCR, unspe cifie d speci men hsv 2 ALENA Negati ve negati ve Not Available [facility] ([facility]) [address] [facility], [place], [address], 10/23/2018 06:07:15 09/03/20 18 09/03/2018 XR, randalul selam No observ ation record ed. [facility] [address] [place], [address], 09/18/2018 16:17:04 Result Notes None recorded. Problems Name Problem SNOMED Code Status Onset Date Resolution Date Notes Provider Name and Address Organization Details Recorded Time Influenza vaccinati on declined 129890839 Completed 201710/17/2018 Sebastián Otero MA null, [place] - [facility] 8 11:36:49 History of iron deficienc y [id number] Active 2017 Ellie Barrett MD Attn: Accounting, [address] [facility], [place], [address], [place] [facility] 8 11:01:21 Chlamydia l cerviciti s 254632765 Active 2017 Catalina Posada MD Attn: Accounting, [address] [facility], [place], [address], [place] [facility] 8 15:12:20 Bacterial vaginosis 315848626 Active 2017 Catalina Posada MD Attn: Accounting, [address] [facility], [place], [address], [facility] 8 15:12:26 Infection by Trichomon as 83714101 Active Juan Diego Tuttle MD Attn: Accounting, [address] [facility], [place], [address], [facility] 5 01:46:48 Problem Notes None recorded. Procedures Surgical History Date Name Laterality Status Provider Name and Address Organization Details Recorded Time 8 Date of Last Pap Smear completed Mulu Álvarez MA [facility] 08/06/2018 12:38:01 Caesarean Section completed Mulu Álvarez MA [facility] 12/11/2017 15:38:58 Imaging Results None recorded. Procedure Notes None recorded. Medical Equipment None Reported. Allergies No known drug allergies Medications Name Sig Start Date Stop Date Status Note LastModified by Organization Details LastModified Time cyclobenzap rine 10 mg tablet 12/11 completed Not Available Not Available Not Available azithromyci n 250 mg tablet TAKE 2 TABLETS (500 MG) BY ORAL ROUTE ONCE DAILY FOR 1 DAY THEN 1 TABLET (250 MG) BY ORAL ROUTE ONCE DAILY FOR 4 DAYS 10/17 completed Not Available Not Available Not Available ibuprofen 800 mg tablet 12/11 completed Not Available Not Available Not Available fluconazole 150 mg tablet Take 1 tablet by oral route for 1 day. 08/06 completed Not Available Not Available Not Available sumatriptan 100 mg tablet Take 1 tablet every day by oral route as needed for 30 days. 09/18 completed Not Available Not Available Not Available ondansetron HCl 4 mg tablet 12/11 completed Not Available Not Available Not Available Debrox 6.5 % ear drops Instill 5 drops twice a day by otic route as directed for 4 days. 10/17 completed Not Available Not Available Not Available Vitamin tablet Take 1 tablet every day by oral route. 08/06 completed Not Available Not Available Not Available Depo-Business Librarian a 150 mg/mL intramuscul ar suspension Inject 150 mL every 3 months by intramusc ular route. 10/03/ 2018 11/19 /2018 completed [facility]# [id number] Not Available Not Available Not Available Flagyl 500 mg tablet Take 1 tablet twice a day by oral route for 7 days. 09/03 completed Not Available Not Available Not Available benzonatate 100 mg capsule Take 1 capsule 3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
[2025-05-09 06:45] VITALS: BP 120/90; PULSE 67; RESP 18; TEMP 36.6; O2SAT 100
--- NOTE | 2025-05-09 06:51 | PC.NURSE ---
Patient refusing to open eyes for visual acuity or to allow this RN to look at her eye
--- OUTSIDE RECORDS SUMMARY | 2025-05-09 07:32 | XMS_ITS | Clinical Summary ---
Author Organization [facility] Address [address] [place] [address] Care Team Providers Care Cafe Aide Name Role Phone Unavailable Primary Care Provider [...] patient's age to complete this topic Insurance [facility]
[2025-05-09] MEDS: FLUORESCEIN SOD 1 MG/STRIP (07:55)
[2025-05-09] MEDS: TETRACAINE HCL 0.5% OPHTH SOLN 4 ML BTL 1 DROP (07:55)
--- NOTE | 2025-05-09 08:00 | ED_ITS ---
HPI - General Adult General Chief complaint: Eye Problems Stated complaint: eye injury Time Seen by Provider: 05/09/25 06:55 History of Present Illness HPI narrative: 35-year-old female presenting to the emergency department for evaluation for an injury to her right eye. Patient states that she did poke her right eye with her finger early this morning. Patient does have pain opening the right eye. Patient does have prior history of corneal abrasion. Does not were contacts. Patient has no medication allergies. Related Data Allergies Allergy/AdvReac Type Severity Reaction Status Date / Time No Known Allergies Allergy Unknown Verified 05/09/25 06:48 Review of Systems Review of Systems: All systems reviewed & are unremarkable except as noted in HPI and below PMFSH Past Medical History Medical History Patient denies significant medical history Social History Social History Social History: patient has 1 other child at home a little girl. She likes Lynn Fink her grandmother to be her surrogate she was to be a full code. 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 HEAD: normocephalic, atraumatic. EYES: Fluorescein uptake with corneal abrasion on inferior aspect of right cornea, overlying the pupil. NOSE: Normal no drainage EARS:TMS clear with good light reflex. THROAT: Pharynx clear, no exudate. NECK: Supple. No adenopathy, no masses. RESPIRATORY: Airway patent, respirations nonlabored. Clear to auscultation bilaterally, no rales, rhonchi, wheezing. CARDIOVASCULAR: Regular rate and rhythm without murmurs rubs or gallops. ABDOMINAL: Soft, nontender, nondistended, normal bowel sounds MUSCULOSKELETAL: Moves all extremities. Strength/ROM intact, No edema, No calf tenderness. NEURO: Alert. Cranial nerves II through XII intact. Good gait. Good coordination SKIN: Warm, dry. Normal Color Course Vital Signs Vital signs: Vital Signs Temperature 98 F 05/09/25 06:45 Pulse Rate 67 05/09/25 06:45 Respiratory Rate 18 05/09/25 06:45 Blood Pressure 120/90 05/09/25 06:45 Pulse Oximetry 100 05/09/25 06:45 Oxygen Delivery Room Air 05/09/25 06:45 Temperature 98 F 05/09/25 06:45 Pulse Rate 67 05/09/25 06:45 Respiratory Rate 18 05/09/25 06:45 Blood Pressure 120/90 05/09/25 06:45 Pulse Oximetry 100 05/09/25 06:45 Oxygen Delivery Room Air 05/09/25 06:45 Medical Decision Making MDM Narrative Medical decision making narrative: 35-year-old female present to the emergency department for evaluation for right eye injury. Patient does have a corneal abrasion of the right eye. Patient was started on erythromycin ointment. Patient does not wear contacts. Patient was encouraged to have follow-up with ophthalmology. Patient does live in at [place] and she was recommended to follow-up with critical access hospital or any other local electronic warfare operator. Patient will be treated with erythromycin ointment for home. All questions concerns were addressed patient was well-appearing at time of discharge. Differential Diagnosis Differential Diagnosis: Foreign body, corneal abrasion, conjunctivitis Vital Signs Vital Signs: Vital Signs Temperature 98 F 05/09/25 06:45 Pulse Rate 67 05/09/25 06:45 Respiratory Rate 18 05/09/25 06:45 Blood Pressure 120/90 05/09/25 06:45 Pulse Oximetry 100 05/09/25 06:45 Oxygen Delivery Room Air 05/09/25 06:45 Temperature 98 F 05/09/25 06:45 Pulse Rate 67 05/09/25 06:45 Respiratory Rate 18 05/09/25 06:45 Blood Pressure 120/90 05/09/25 06:45 Pulse Oximetry 100 05/09/25 06:45 Oxygen Delivery Room Air 05/09/25 06:45 Lab Data Lab results reviewed: Yes I reviewed the patient's lab results. Discharge Plan Discharge Clinical Impression: Abrasion, corneal Patient Disposition: Home Condition: Stable Instructions: Antibiotic Form, Corneal Abrasion (ED) Additional Instructions: Treatment as directed. Antibiotic ointment as directed. Have close follow-up with Ophthalmology. If you have any worsening symptoms then please call or return to the emergency department. Patient Language: Urdu Prescriptions: New erythromycin 5 mg/gram (0.5 %) ointment 0.5 inch RIGHT EYE TID Qty: 3.5 0RF No Action cyclobenzaprine 10 mg tablet 10 mg PO TID PRN (Reason: muscle spasm) Qty: 20 0RF ibuprofen 800 mg tablet 800 mg PO Q6H PRN (Reason: pain) Qty: 30 0RF ondansetron 4 mg tablet,disintegrating 4 mg PO Q6H PRN (Reason: nausea and vomiting) Qty: 20 0RF ondansetron 4 mg tablet,disintegrating 4 mg PO Q8H PRN (Reason: nausea and vomiting) Qty: 10 0RF Follow-up/Referrals: [facility] [Outside] [facility] [Outside] Adrian,MD Jessica ([place]) [Primary Care Provider] - Stand Alone Forms: Work/School Release IP
[2025-05-09] MEDS: ERYTHROMYCIN OPHTH OINTMENT 1 GM TUBE 1 APPLIC RIGHT EYE (08:21)
[2025-05-09] MEDS: TETANUS,DIPHTHERIA,AC PERTUSSIS ADULT (0.5 ML) BOOSTRIX IM (08:21)
== END 2025-05-09 08:28 | disposition home or self-care (01) ==
PROVIDERS: Emergency Provider Emergency Medicine; PCP Internal Medicine
DX: S05.01XA Injury of conjunctiva and corneal abrasion without foreign body, right eye, initial encounter (principal); X58.XXXA Exposure to other specified factors, initial encounter; Z23 Encounter for immunization
CPT/HCPCS: 90471; 90715; 99283; A9270

== ENCOUNTER 2025-09-01 23:14 | Emergency (ER) | payer BC, SELFPAY ==
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
--- NOTE | 2025-09-01 23:31 | ECG_ITS ---
Test Date: 2025-09-01 23:34:24 Measurements Intervals [place] Rate: 84 P: 73 NH: 146 QRS: 70 QRSD: 88 T: 30 QT: 346 QTc: 411 Interpretive Statements SINUS RHYTHM WITH SINUS ARRHYTHMIA POSSIBLE RIGHT VENTRICULAR CONDUCTION DELAY NONSPECIFIC T-WAVE ABNORMALITY- ANT/INF LEADS BORDERLINE ECG No previous ECG available for comparison Electronically Signed On 09-02-2025 06:11:32 CDT by Stanley Smith D.O.
[2025-09-01 23:35] VITALS: PULSE 97; RESP 16; TEMP 36.7; O2SAT 100
[2025-09-02 00:05] LABS: Alanine Aminotransferase 11 U/L (6-35); Albumin Level 4.7 g/dL (3.5-5.1); Alkaline Phosphatase 69 U/L (38-126); Anion Gap 12 mmol/L (4-12); Aspartate Amino Transferase 21 U/L (14-36); Bilirubin,Total 0.6 mg/dL (0.2-1.3); Blood Urea Nitrogen 12 mg/dL (7-17); Calcium 9.1 mg/dL (8.4-10.2); Carbon Dioxide 23 mmol/L (22-30); Chloride 105 mmol/L (98-107); Estimated CRCL calculation 77 ml/min; Estimated Glomerular Filt Rate > 60; Glucose 111 mg/dL (65-110); Potassium 3.2 mmol/L (3.4-5.0); Sodium 140 mmol/L (137-145); Total Protein 8.1 g/dL (6.3-8.2)
[2025-09-02 00:11] LABS: Hematocrit 42.7 % (37.0-47.0); Hemoglobin 13.3 g/dL (12.0-15.0); Immature Granulocyte Percent A 0.8 % (0-0.5); Lymphocytes Absolute Auto 2.86 K/mm3 (0.9-3.2); Mean Corpuscular HGB Conc 31.1 g/dl (32-36); Mean Corpuscular Hemoglobin 23.9 pg (26-34); Mean Corpuscular Volume 76.8 fl (80-100); Nucleated Red Blood Cells Absolute Auto 0.000 K/mm3 (0.0-0.012); Nucleated Red Blood Cells Perc 0.0 % (0.0-0.2); Platelet Count Result 265 k/mm3 (150-375); Red Blood Count 5.56 M/mm3 (4.2-5.4); White Blood Count 9.9 K/mm3 (4.5-10.0)
[2025-09-02 00:16] LABS: Troponin I < 0.012 ng/mL (0.000-0.034)
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
[2025-09-02] MEDS: IBUPROFEN 600 MG TABLET PO (01:42)
[2025-09-02 01:47] VITALS: PULSE 89; RESP 11; O2SAT 100
[2025-09-02 02:00] LABS: BEDSIDEPREGUCG Negative (Negative)
[2025-09-02 02:01] VITALS: BP 112/91; O2SAT 100
--- OUTSIDE RECORDS SUMMARY | 2025-09-02 02:01 | XMS_ITS | Data Portability ---
Author Organization [facility], [place] Address [address] [place] [address] Assessment No assessment recorded. Plan of Treatment Reminders Order Date Submit Date Provider Last Modified By Organization Details Last Modified Time Details Appointments None recorded. Lab None recorded. Referral None recorded. Procedures None recorded. Surgeries salpingecto my, laparoscopi c (SURG) [address], [address], [place], [address], 07:20:52 Imaging None recorded. Medication Orders promethazin e 25 mg tablet 2021 [id number], [address] [place], [place], [id number], 14:33:38 hydrocodone 5 mg-acetamin ophen 325 mg tablet 2021 [facility] #[id number], [address] [place], [place], [id number], 14:34:53 Patient TargetsNo targets recorded. Patient InstructionsNo instructions recorded. Reason for Referral None Reported. Results Created Date Observation Date Name Description Value Unit Range Abnormal Flag Note LastModifiedBy Organization Detail LastModifiedTime 06/27/20 22 06/27/2022 US, abdom en No observ ation record ed. [email or web address] [place] [address] [address], [place], [address], 03/12/2023 17:33:00 06/27/20 22 06/27/2022 US, abdom en No observ ation record ed. [address], [place], [address], 03/12/2023 17:33:19 06/27/20 22 06/27/2022 XR, abdom en No observ ation record ed. [address], [place], [address], 03/12/2023 17:34:26 06/27/20 22 06/27/2022 XR, abdom en No observ ation record ed. [address], [place], [address], 03/12/2023 17:34:47 Result Notes None recorded. Medical [...] Updated DateTime 07/05/2022 160.02 cm 19.8 kg/m2 07189.35 g 105/75 mm[Hg] Helen Whitney [facility] 07/05/2022 14:21:10 Social History None recorded. [...] Diagnosis SNOMED-CT Code Diagnosis ICD10 Code Diagnosis IMO Codes Diagnosis Note [id number] Oskar Paris MD [place] [address] [address] 07/05/2022 14:02:58 07/05/2022 15:05:27 Abdominal pain 66835222 R10.9 This patient is a 32-year-ol d [...] a intra-abdo abraham problem. Female sterilization [id number] Z30.2 Health Concerns Section Related Observation LastModified by Organization Detai ls LastModified Time None Recorded Concern Status LastModified by Organization Details LastModified Time None Recorded Advance Directives Directive None Recorded Payers Insurance Date Sequence Insurance Name Policy Number Policy Haddad Covered Member ID Haddad Member ID Guarantor Name 09/10/2024 1 [place] [id number] Belem Fink [id number] Belemraf Fink Notes Date Note Type Note Provider [...] in 2 weeks. Spent over 20 minutes [id number]. More than 50% was counseling. Talked about her abdominal pain the evaluation. Talked about CT scan after her termination. We talked about work and her ability to perform her tasks at work. She feels she is ready to return to work in 4 days. Evaluation the hospital did not yield any direct evidence of a intra-abdominal problem. Oskar Paris MD [address], [place], [address], [facility] 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
--- OUTSIDE RECORDS SUMMARY | 2025-09-02 02:01 | XMS_ITS | Clinical Summary ---
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
--- OUTSIDE RECORDS SUMMARY | 2025-09-02 02:01 | XMS_ITS | Data Portability ---
Author Organization [facility], [employer] Address [address] [facility] [address] [place] [address] Assessment Encounter Date Assessment Date Assessment LastModified [...] Lab D-dimer, quant, plasma 2023 024 [facility] [facility], [address] [facility] [address], [address], [place], [address], 12:05:32 TSH + free T4, serum 2023 024 [employer] [facility], [address], [address], [place], [address], 4 17:01:55 T3, free, serum or plasma 2023 024 [employer] [facility], [address], [address], [place], [address], 4 12:11:16 D-dimer, quant, plasma 2022 023 [employer] [facility], [address], [address], [place], [address], 3 16:01:03 TSH + free T4, serum 2022 023 [facility], [address], [address], [place], [address], 3 13:53:41 T3, free, serum or plasma 2022 023 [facility], [address], [address], [place], [address], 3 17:09:39 glucose tolerance test, 4 specimens 2022 023 [facility], [address], [address], [place], [address], 3 13:53:44 HIV 1+2 Ab + HIV1 p24 Ag, quantitativ e immunoassay , serum 2022 023 [employer] [facility], [address], [address], [place], [address], 3 13:53:43 urinalysis complete, reflex culture 2022 023 [employer] [facility], [address], [address], [place], [address], 3 15:51:50 lipid panel, serum 2022 023 [employer] [facility], [address], [address], [place], [address], 3 13:53:45 hepatitis C virus Ab, serum 2022 023 [employer] [facility], [address], [address], [place], [address], 3 13:53:40 Referral gynecologis t referral 2023 024 [facility], [address], [place], [address], 4 08:12:14 endocrinolo gy referral 2023 024 [facility] , [address] [place], [address], 5 08:22:17 ophthalmolo gist referral 2023 024 [email or web address] 6 [facility], [address] [facility], [address] [place] [address], [address], 5 08:11:29 ophthalmolo gist referral 2023 024 [email or web address] 6 [facility], [address] [facility], [facility], [place], [address], 5 08:11:29 endocrinolo gy referral 2023 024 [facility] , [address] [place], [address], 5 08:36:25 physical therapist referral 2022 023 [facility], [address], [address], [place], [address], 4 08:31:17 physical therapist referral 2022 023 [facility], [address], [address], [place], [address], 4 21:51:02 physical therapist referral 2022 023 [facility], [address], [address], [place], [address], 4 08:31:17 gynecologis t referral 2022 023 [facility], [address] [place], [address], 4 08:30:19 clinical cardiac electrophys iologist referral 2022 023 [facility], [address] [facility], [address], [place], [address], 4 09:06:56 physical therapist referral 2022 023 [facility], [address], [address], [place], [address], 4 09:06:57 Procedures None recorded. Surgeries None recorded. Imaging electrocard iogram 2023 024 [facility], [address] [facility] [address], [place], [address], 4 13:49:24 XR, chest, 2 view 2023 024 [facility], [address], [address], [place], [address], 4 10:27:04 US, breast, unilateral 2023 024 [facility], [address] [facility], [place], [address], 4 10:27:04 MAMMO, diagnostic, bilateral 2023 024 [facility], [address] [facility], [place], [address], 4 10:27:04 CT, head, w/o contrast 2023 024 pankaj [facility] Access Centralized Scheduling, Centralized Scheduling, [address] [facility] , [place], [address], 4 08:44:16 US, breast, unilateral 2022 023 [facility], [address] [facility], [place], [address], 3 08:34:04 MAMMO, diagnostic, bilateral 2022 023 [facility], [address] [facility], [place], [address], 3 08:34:04 Medication Orders methimazole 5 mg tablet 2023 024 [facility][id number], [address] [place], [place], [id number], 4 17:01:39 tramadol 50 mg tablet 2023 024 [facility] #18456, [address] [place], [place], [id number], 4 14:59:23 Medrol (Brian) 4 mg tablets in a dose pack 2022 023 [facility]41645, [address], [place], [place], [id number], 3 13:52:29 baclofen 10 mg tablet 2022 023 [facility]59526, [address], [place], [place], [id number], 13:52:28 cefdinir 300 mg capsule 2022 023 [facility]56387, [address], [place], [place], [id number], 13:52:29 Patient TargetsNo targets recorded. Patient Instructions Encounter Date Encounter Id Patient Instructions Last Modified By Organization Details Last Modified Time 10/10/2023 [id number] advised to quit smoking [facility] Not available 10/10/2023 13:52:17 02/20/2024 [id number] -- must go to [facility] Emergency Room if one has any increasing symptoms or any visual changes, speech/hearing problems, confusion or memory symptoms, focal muscle weakness, numbness/tingling , unsteady balance/dizziness or gait problems, coordination problems, etc. [facility] Not available 02/20/2024 16:54:54 Reason for Referral Line Servicer Referral for Gy necologic examination Referring Physician: [...] [facility], Encounter Date: 11/21/2023 [employer] Referral for Photophobia Referring Physician: Perry [facility], Encounter Date: 02/20/2024 [employer] Referral for Corneal abrasion Referring Physician: Perry [facility], Encounter Date: 02/20/2024 Endocrinology Referral for H ypoglycemia Referring Physician: Perry [facility], Encounter Date: 08/13/2024 Line Servicer Referral for Gy necologic examination Referring Physician: Perry [facility], Encounter Date: 08/13/2024 Results Created Date Observation Date Name Description Value Unit Range Abnormal Flag Note LastModifiedBy Organization Detail LastModifiedTime 10/10/20 23 10/10/2023 HS D DIMER hs D dimer 255 [...] negat maria victoria findi ngs. Not Available [facility] (Lab) [place], [address], 10/10/2023 15:45:55 10/10/20 23 10/10/2023 UA REFLE X TO CULTU RE specimen type URINE, UNSPEC IFIED Not Available [facility] (Lab) [address] [place], [address], 10/10/2023 15:51:50 10/10/20 23 10/10/2023 UA REFLE X TO CULTU RE color YELLOW Not Available [facility] (Lab) [address] [place], [address], 10/10/2023 15:51:50 10/10/20 23 10/10/2023 UA REFLE X TO CULTU RE clarity TURBID Not Available [facility] (Lab) [place], [address], 10/10/2023 15:51:50 10/10/20 23 10/10/2023 UA REFLE X TO CULTU RE specific gravity 1.030 1.001- 1.030 Not Available [facility] (Lab) [address] [facility], [place], [address], 10/10/2023 15:51:50 10/10/20 23 10/10/2023 UA REFLE X TO CULTU RE pH, urine 6.5 5.0-9. 0 Not Available [facility] (Lab) [place], [address], 10/10/2023 15:51:50 10/10/20 23 10/10/2023 UA REFLE X TO CULTU RE leukocytes 250 neg abnormal Not Available [facility] (Lab) [place], [address], 10/10/2023 15:51:50 10/10/20 23 10/10/2023 UA REFLE X TO CULTU RE nitrite NEGATI VE neg normal Not Available [facility] (Lab) [place], [address], 10/10/2023 15:51:50 10/10/20 23 10/10/2023 UA REFLE X TO CULTU RE protein 50 mg/dL <30 high Not Available [facility] (Lab) [address] [facility], [place], [address], 10/10/2023 15:51:50 10/10/20 23 10/10/2023 UA REFLE X TO CULTU RE glucose NORMAL mg/dL norm normal Not Available [facility] (Lab) [address] [facility], [place], [address], 10/10/2023 15:51:50 10/10/20 23 10/10/2023 UA REFLE X TO CULTU RE ketone NEGATI VE mg/dL neg normal Not Available [facility] (Lab) [address] [facility], [place], [address], 10/10/2023 15:51:50 10/10/20 23 10/10/2023 UA REFLE X TO CULTU RE urobilinogen 3.0 mg/dL norm abnormal Not Available [facility] (Lab) [address] [facility], [place], [address], 10/10/2023 15:51:50 10/10/20 23 10/10/2023 UA REFLE X TO CULTU RE bilirubin NEGATI VE mg/dL neg normal Not Available [facility] (Lab) [place], [address], 10/10/2023 15:51:50 10/10/20 23 10/10/2023 UA REFLE X TO CULTU RE blood NEGATI VE neg normal Not Available [facility] (Lab) [place], [address], 10/10/2023 15:51:50 10/10/20 23 10/10/2023 UA REFLE X TO CULTU RE culture indicated SPECIM EN SETUP FOR CULTUR E Not Available [facility] (Lab) [place], [address], 10/10/2023 15:51:50 10/10/20 23 10/10/2023 UA REFLE X TO CULTU RE mucous MANY /lpf Not Available [facility] (Lab) [address], [place], [address], 10/10/2023 15:51:50 10/10/20 23 10/10/2023 UA REFLE X TO CULTU RE WBC 6 /hpf <6 high Not Available [facility] (Lab) [place], [address], 10/10/2023 15:51:50 10/10/20 23 10/10/2023 UA REFLE X TO CULTU RE RBC 2 /hpf <6 Not Available [facility] (Lab) [address], [place], [address], 10/10/2023 15:51:50 10/10/20 23 10/10/2023 UA REFLE X TO CULTU RE squamous epithelial MODERA TE /hpf Not Available [facility] (Lab) [address], [place], [address], 10/10/2023 15:51:50 10/10/20 23 10/10/2023 URINE CULTU RE header [facility] [place] [address] Patie nt:MARIE ZAYAS 1078 Med Rec#: [id number] Order ing MD: NORIS MOCK : [birth year] Sex: F Locat ion: SEOLA B Test: URINE CULTU RE Colle ct Date: 10-10 12:56 Acces michael #: [id number] Not Available [facility] (Lab) [place], [address], 10/12/2023 10:51:46 10/10/20 23 10/10/2023 URINE CULTU [...] STATU S - FINAL 10/12 Not Available [facility] (Lab) [place], [address], 10/12/2023 10:51:46 10/10/20 23 10/10/2023 HEPAT ITIS C ANTIB MICHAEL hepatitis C antibody Negati ve negati ve Not Available [facility] (Main Location) [facility] [address] ,[place], [address], 10/11/2023 17:09:38 10/10/20 23 10/10/2023 DLDL dldl 71 mg/dL 0-100 Not Available [facility] (Main Location) [facility] [address] ,[place], [address], 10/11/2023 17:09:39 10/10/20 23 10/10/2023 FREE TRIIO DOTHY GERARDO E (FT3) FT3 9.3 pg/mL 1.5-4. 1 high Not Available [facility] (Main Location) [facility] [address] ,[place], [address], 10/11/2023 17:09:39 10/10/20 23 10/10/2023 FREE THYRO XINE (FT4) FT4 3.17 NG/dL 0.93-1 .70 high Not Available [facility] (Main Location) [address] ,, [place], [address], 10/11/2023 17:09:40 10/10/20 23 10/10/2023 HIV-1 /2 AG & AB HIV antibody Non-Re active non-re active Not Available [facility] (Main Location) [address] ,, [place], [address], 10/11/2023 17:09:40 10/10/20 23 10/10/2023 HIV-1 /2 AG & AB HIV P24 antigen Non-Re active non-re active Not Available [facility] (Main Location) [address] ,, [place], [address], 10/11/2023 17:09:40 10/10/20 23 10/10/2023 LIPID PANEL trigylceride s 64 mg/dL 0-150 Not Available [facility] (Main Location) [facility] ,, [place], [address], 10/11/2023 17:09:41 10/10/20 23 10/10/2023 LIPID PANEL cholesterol 155 mg/dL 0-200 Not Available [facility] (Main Location) [facility] ,, [place], [address], 10/11/2023 17:09:41 10/10/20 23 10/10/2023 LIPID PANEL uhdl 74 mg/dL 45-65 high Not Available [facility] (Main Location) [facility] ,, [place], [address], 10/11/2023 17:09:41 10/10/20 23 10/10/2023 LIPID PANEL LDL, calculated 68 mg/dL 0-100 Not Available [facility] (Main Location) [address] ,, [place], [address], 10/11/2023 17:09:41 10/10/20 23 10/10/2023 LIPID PANEL LDL, measured 71 mg/dL <99 Not Available [facility] (Main Location) [address] ,, [place], [address], 10/11/2023 17:09:41 10/10/20 23 10/10/2023 LIPID PANEL LDL/HDL ratio 1 mg/dL 0-5 Not Available [facility] (Main Location) [address] ,, [place], [address], 10/11/2023 17:09:41 10/10/20 23 10/10/2023 LIPID PANEL VLDL 12.8 mg/dL 5.0-40 .0 Not Available [facility] (Main Location) [address] ,, [place], [address], 10/11/2023 17:09:41 10/10/20 23 10/10/2023 LIPID PANEL cholesterol/ HDL ratio 2.09 0.00-5 .00 Not Available [facility] (Main Location) [facility] ,, [place], [address], 10/11/2023 17:09:41 10/10/20 23 10/10/2023 THYRO ID STIMU LATIN G HORMO NE (TSH) TSH 0.01 ?IU/m L 0.27-4 .20 low Not Available [facility] (Main Location) [address] ,, [place], [address], 10/11/2023 17:09:41 10/10/20 23 10/10/2023 HIV-1 /2 AG & AB HIV antibody Non-Re active non-re active Not Available [facility] (Main Location) [address] ,, [place], [address], 10/11/2023 17:09:46 10/10/20 23 10/10/2023 HIV-1 /2 AG & AB HIV P24 antigen Non-Re active non-re active Not Available [facility] (Main Location) [facility] ,, [place], [address], 10/11/2023 17:09:46 10/15/20 23 10/15/2023 GLUCO SE ADY ANCE TESTI NG, 3 HR glucose fasting 86 mg/dL 74-99 Not Available [facility] (Main Location) [address] ,, [place], [address], 10/16/2023 17:50:30 10/15/20 23 10/15/2023 GLUCO SE ADY ANCE TESTI NG, 3 HR glucose, 1 hour 105 mg/dL 74-199 Not Available [facility] (Main Location) [address] ,, [place], [address], 10/16/2023 17:50:30 10/15/20 23 10/15/2023 GLUCO SE ADY ANCE TESTI NG, 3 HR glucose, 2 hour 115 mg/dL 74-139 Not Available [facility] (Main Location) [facility] [address] ,, [place], [address], 10/16/2023 17:50:30 10/15/20 23 10/15/2023 GLUCO SE ADY ANCE TESTI NG, 3 HR glucose, 3 hour 40 Result s verifi ed by repeat analys is. mg/dL 74-139 low Not Available [facility] (Main Location) [facility] [address] ,, [place], [address], 10/16/2023 17:50:30 10/15/20 23 10/15/2023 GLUCO SE ADY ANCE TESTI NG, 3 HR glucose fasting 86 mg/dL 74-99 Not Available [facility] (Main Location) [facility] [address] ,, [place], [address], 10/16/2023 17:50:30 10/15/20 23 10/15/2023 GLUCO SE ADY ANCE TESTI NG, 3 HR glucose, 1 hour 105 mg/dL 74-199 Not Available [facility] (Main Location) [facility] [address] ,, [place], [address], 10/16/2023 17:50:30 10/15/20 23 10/15/2023 GLUCO SE ADY ANCE TESTI NG, 3 HR glucose, 2 hour 115 mg/dL 74-139 Not Available [facility] (Main Location) [facility] [address] ,, [place], [address], 10/16/2023 17:50:30 10/15/20 23 10/15/2023 GLUCO SE ADY ANCE TESTI NG, 3 HR glucose, 3 hour 40 Result s verifi ed by repeat analys is. mg/dL 74-139 low Not Available [facility] (Main Location) [facility] [address] ,, [place], [address], 10/16/2023 17:50:30 10/15/20 23 10/15/2023 GLUCO SE ADY ANCE TESTI NG, 3 HR glucose fasting 86 mg/dL 74-99 Not Available [facility] (Main Location) [facility] [address] ,, [place], [address], 10/16/2023 17:50:30 10/15/20 23 10/15/2023 GLUCO SE ADY ANCE TESTI NG, 3 HR glucose, 1 hour 105 mg/dL 74-199 Not Available [facility] (Main Location) [facility] [address] ,, [place], [address], 10/16/2023 17:50:30 10/15/20 23 10/15/2023 GLUCO SE ADY ANCE TESTI NG, 3 HR glucose, 2 hour 115 mg/dL 74-139 Not Available [facility] (Main Location) [facility] [address] ,, [place], [address], 10/16/2023 17:50:30 10/15/20 23 10/15/2023 GLUCO SE ADY ANCE TESTI NG, 3 HR glucose, 3 hour 40 Result s verifi ed by repeat analys is. mg/dL 74-139 low Not Available [facility] (Main Location) [facility] [address] ,, [place], [address], 10/16/2023 17:50:30 10/15/20 23 10/15/2023 GLUCO SE ADY ANCE TESTI NG, 3 HR glucose fasting 86 mg/dL 74-99 Not Available [facility] (Main Location) [address] [place], [place] [address] ,, [place], [address], 10/16/2023 17:50:30 10/15/20 23 10/15/2023 GLUCO SE ADY ANCE TESTI NG, 3 HR glucose, 1 hour 105 mg/dL 74-199 Not Available [facility] (Main Location) [address] [place] [address]. [address] ,, [place], [address], 10/16/2023 17:50:30 10/15/20 23 10/15/2023 GLUCO SE ADY ANCE TESTI NG, 3 HR glucose, 2 hour 115 mg/dL 74-139 Not Available [facility] (Main Location) [address] [place], [place] [address] . [address] ,, [place], [address], 10/16/2023 17:50:30 10/15/20 23 10/15/2023 GLUCO SE ADY ANCE TESTI NG, 3 HR glucose, 3 hour 40 Result s verifi ed by repeat analys is. mg/dL 74-139 low Not Available [facility] (Main Location) [address] [place] [address]. [address] ,, [place], [address], 10/16/2023 17:50:30 02/20/20 24 02/20/2024 FREE T3 [...] Trime ster: 1.0-3 .2 pg/mL Not Available [facility] [address], [place], [address], 02/23/2024 12:11:16 02/20/20 24 02/20/2024 FREE T4 thyroxine (T4), free 4.52 NG/dL 0.82-1 .77 high Not Available [facility] [address], [place], [address], 02/23/2024 12:11:16 02/20/20 24 02/20/2024 THYRO ID-ST IM. HORMO NE (TSH) , HIGH- SENSI TIVE thyroid-stim . hormone (TSH), hs 0.01 uIU/m L 0.27-4 .20 low Not Available [facility] [address] [facility] [address], [place], [address], 02/23/2024 12:11:17 10/24/20 23 10/17/2023 CT, thora cic spine , w/o contr ast No observ ation record ed. [address], [place], [address], 11/21/2023 14:56:41 08/13/20 24 08/19/2024 elect rocar diogr am No observ ation record ed. [email or web address], [place] [address], [place], [address], 08/19/2024 13:49:24 08/13/20 24 08/13/2024 elect rocar diogr am No observ ation record ed. [email or web address] Not Available 2023 13:49:41 Result Notes None recorded. Problems Name Problem SNOMED Code Status Onset Date Resolution Date Notes Provider Name and Address Organization Details Recorded Time Low back pain 385247801 Active 2022 MD Laurel Monique2 [facility] [address], [place], [address] , [facility] 12:52:57 Lumbar radiculopathy 199654188 Active 2022 MD Laurel Monique[address], [place], [address] , [facility] 3 12:53:14 Xeroderma 85055548 Active 2022 MD Neyda Monique [address], [place], , [facility] 3 12:55:00 Syncope 949900691 Active 2022 MD Neyda Monique [address], [place], , [facility] 3 12:56:23 Dyspnea on exertion 31589957 Active 2022 MD Neyda Monique [facility] [address], [place], , [facility] 3 13:00:28 Hyperthyroidi sm 67835276 Active 2022 MD Neyda Monique [address], [place], , [facility] 3 23:06:14 Sore nostril 662933811 Active 2022 MD Neyda Monique [address], [place], , [facility] 3 16:42:41 Sacral back pain 30462774 Active 2022 MD Neyda Monique [address], [place], , [facility] 3 16:44:02 Nicotine dependence with current use 842333156 Active 2022 MD Neyda Monique [address], [place], , [facility] 3 16:47:10 Problem Notes None recorded. Procedures Surgical History Date Name Laterality Status Provider Name and Address Organization Details Recorded Time 0 section completed MD Neyda Monique [address], [place], , [facility] 07/19/2023 12:47:46 Imaging Results None recorded. Procedure [...] completed Not Available Not Available Not Available [employer] Ultra Test strips 1QD active Not Available [...] /min 16 /min 98.7 [degF] 20.5 kg/m2 23646.3 5 g 122/85 mm[Hg] Ana Helton [facility] 4 14:33:14 Date Recorded Body height Heart rate Respiratory rate Body temperature Body mass index (BMI) Body weight Systolic And Diastolic Provider Name and Address Organization Details Last Updated DateTime 4 157.48 cm 94 /min 16 /min 97.6 [degF] 21.8 kg/m2 45402.4 9 g 120/83 mm[Hg] [facility] 4 16:15:52 Date Recorded Body height Heart rate Respiratory rate Body temperature Body mass index (BMI) Body weight Systolic And Diastolic Provider Name and Address Organization Details Last Updated DateTime 4 157.48 cm 76 /min 16 /min 97.6 [degF] 21.8 kg/m2 85938.4 9 g 127/82 mm[Hg] [facility] 4 11:12:00 Date Recorded Body height Provider Name an d Address Organization Details Last Updated DateTime 10/10/2023 157.48 cm Perry Mock MD [address], [place], [address] 10/10/2023 13:15:20 Date Recorded Heart rate Respiratory rate Body temperature Body weight Systolic And Diastolic Provider Name and Address Organization Details Last Updated DateTime 3 92 /min 16 /min 97.6 [degF] 23856.9 g 121/83 mm[Hg] [facility] 3 13:23:41 Date Recorded Body height Heart rate Respiratory rate Body temperature Body mass index (BMI) Body weight Systolic And Diastolic Provider Name and Address Organization Details Last Updated DateTime 3 157.48 cm 76 /min 16 /min 97.3 [degF] 21.6 kg/m2 36106.9 g 122/82 mm[Hg] [facility] 3 15:17:52 Social History Question Answer Notes LastModified by Organizat ion Details LastModified Time Tobacco Smoking Status Former Smoker -- does not do Cigarrettes; but smoke Marijuana around January 2023 Perry Mock MD [address], [place], [address], [facility] 07/19/2023 12:51:10 Do You Have An Advance Directive? No [email or web address] Information not available 10/23/2023 Do You Wear A Helmet When Biking? No [email or web address] Information not available 10/23/2023 Are You Blind Or Do You Have Difficulty Seeing? No [email or web address] Information not available 10/23/2023 Is Blood Transfusion Acceptable In An Emergency? Yes [email or web address] Information not available 10/23/2023 What Is Your Level Of Caffeine Consumption? Occasional [email or web address] Information not available 10/23/2023 What Type Of Clinical Nurse Specialist Do You Use? Relative [email or web address] Information not available 10/23/2023 What Is Your Code Status? Full Code [email or web address] Information not available 10/23/2023 In The 14 Days Before Symptom Onset, Have You Had Close Contact With A Laboratory-confi rmed COVID-19 While That Case Was Ill? No Information not available 10/23/2023 In The 14 Days Before Symptom Onset, Have You Had Close Contact With A Person Who Is Under Investigation For COVID-19 While That Person Was Ill? No [email or web address] Information not available 10/23/2023 Have You Been To An Area Known To Be High Risk For COVID-19? No [email or web address] Information not available 10/23/2023 Are You Deaf Or Do You Have Serious Difficulty Hearing? No [email or web address] Information not available 10/23/2023 What Type Of Diet Are You Following? REGULAR ubizgbwv31 Information not available 10/23/2023 Have You Processed Blood Or Body Fluids From An Ebola Virus Disease Patient Without Appropriate PPE? No zywijlur86 Information not available 10/23/2023 Do You Reside In Or Have You Traveled To An Area Where Ebola Virus Transmission Is Active? No [email or web address] Information not available 10/23/2023 What Is The Highest Grade Or Level Of School You Have Completed Or The Highest Degree You Have Received? [id number] Information not available 10/23/2023 How Many Days Of Moderate To Strenuous Exercise, Like A Brisk Walk, Did You Do In The Last 7 Days? 0 [email or web address] Information not available 10/23/2023 Have There Been Any Changes To Your Family Or Social Situation? No [email or web address] Information not available 10/23/2023 What Is The Fluoride Status Of Your Home? Fluoridated qowwqbzt68 Information not available 10/23/2023 Are There Any Guns Present In Your Home? No chxmcreh44 Information not available 10/23/2023 Do You Use Insect Repellent Routinely? No [email or web address] Information not available 10/23/2023 What Was The Date Of Your Most Recent Tobacco Screening? 02/20/2024 mbenfer Information not available 02/20/2024 How Many Children Do You Have? 1 [email or web address] Information not available 10/23/2023 Do You Have Any Pets? No kzlciqiz43 Information not available 10/23/2023 Do You Use Protection During Sex? Always pseterxn43 Information not available 07/19/2023 What Is Your Relationship Status? Single liggyiqb04 Information not available 10/23/2023 Do You Use Your Seat Belt Or Car Seat Routinely? Yes Information not available 10/23/2023 Are You Sexually Active? Yes [email or web address] Information not available 07/19/2023 Do You Have Smoke And Carbon Monoxide Detectors In Your Home? Yes yvdpriyv02 Information not available 10/23/2023 Are You Passively Exposed To Smoke? No [email or web address] Information not available 10/23/2023 Do You Use Sunscreen Routinely? No ejhbycec35 Information not available 10/23/2023 Do You Have Difficulty Walking Or Climbing Stairs? No akbtmfkh47 Information not available 10/23/2023 Sex: Unknown Functional Status Question Answer Note LastModified by Organizat ion Details LastModified Time Do you use any illicit or recreational drugs? No hnjwzker09 Information not available 10/23/2023 Do you or have you ever used any other forms of tobacco or nicotine? No afncfwob12 Information not available 10/23/2023 What is your level of alcohol consumption? Occasional fdpqvaax30 Information not available 07/19/2023 Are you currently employed? Yes [employer] mastwxuf26 Information not available 10/23/2023 Do you have transportation difficulties? No zstocjzm60 Information not available 10/23/2023 Do you have difficulty doing errands alone? No dehodgts05 Information not available 10/23/2023 Are you able to care for yourself independently? 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 No dszmaupl52 Information not available 10/23/2023 What is your exercise level? None [email or web address] Information not available 10/23/2023 Mental Status Question Answer Note LastModified by Organizat ion Details LastModified Time Do you feel stressed (tense, restless, nervous, or anxious, or unable to sleep at night)? [id number] [email or web address] Information not available 10/23/2023 Do you have difficulty concentrating, remembering or making decisions? No pidqhsye90 Information no t available 10/23/2023 Family History Relationship Description Onset Age of this Age Resolved Age Notes LastModified by Organization Details LastModified Time Mother Hypertensive disorder Not available 10/23 14:26:04 Mother Acute stroke -- dx'd at 51 y/o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
--- OUTSIDE RECORDS SUMMARY | 2025-09-02 02:01 | XMS_ITS | Clinical Summary ---
Author Organization [facility] Address [address] [place] [address] Care Team Providers Care Voice Instructor Name Role Phone Perry Campbell MD Primary Care Provider [phone] Perry Campbell MD Unavailable Allergies No known [...] 11/22/2023 Assessment & Plan (11/22/2023 1:44 PM PHYSICIAN OFFICE SPECIALIST): Patient would like to establish here for [...] moxi Assessment & Plan (12/09/2023 12:13 PM PHYSICIAN OFFICE SPECIALIST): Still no epi defect on exam today but continued symptomatic photophobia and intermittent blurry vision, although symptoms have improved since stopping Clear Eyes drops. Describes intermittent monocular diplopia. Conjunctival injection improved. No obvious yxa-[id number]-[id number] but history and exam likely consistent with [...] symptoms. Assessment & Plan (11/22/2023 1:44 PM PHYSICIAN OFFICE SPECIALIST): Exam today with resolution of epi defect [...] on file Legal Sex Female 9:03 PM PHYSICIAN OFFICE SPECIALIST Gender Identity Not on file Sexual Orientation [...] Regular Well Visit/Exam 18-64 2009 Influenza Vaccine (#1) 2025 08/27/2008 DTaP/Tdap/Td Vaccine (7 - Td or Tdap) 08/06/2028 08/06/2018, 08/27/1995, 07/05/1993, Additional history exists Hepatitis B Screening Completed 05/29/2023, 023 Pneumococcal vaccine <65 Aged Out No longer eligible based on patient's age to complete this topic Insurance [facility]O Address: [facility] [address] [place] [address] [facility]O Address: [address] [place] [address] CHOICE PLUS [facility] H[facility]/PPO Address: [address] [place] [address] [facility] PLUS [facility] H[facility]/PPO Address: [address] [address] [place] [address] Care Teams Voice Instructor Relationship Specialty Start Date End Date Perry Campbell MD [address] [place], [place] [id number] [place] [address] PCP - General Internal Medicine 11/19/23 Perry Campbell MD [address] [facility] [address] [place] [address] Internal Medicine 11/19/23
--- OUTSIDE RECORDS SUMMARY | 2025-09-02 02:02 | XMS_ITS | Data Portability ---
[facility] Organization [facility] Address [address] [place] [address] Care Team Providers Care Whizzer Operator Name Role Phone ALLIEDalia CATALINA Calculation Reviewer Assessment No assessment recorded. Plan of Treatment Reminders Order Date Submit Date Provider Last Modified By Organization Details Last Modified Time Details Appointments None recorded . Lab bacteria l vaginosi s + vaginiti s panel, vaginal 2017 018 [facility], [address], [place], [address], 8 06:07:14 HSV (1+2) DNA, qual, PCR, unspecif ied specimen 2017 018 [facility], [address], [place], [address], 8 06:07:15 pregnanc y test, urine 2017 018 [email or web address] In-Office Order, Internal Use Only DO Not Attach Compendium DO Not Attach Compendium, Do Not Delete/merge, [id number] 8 12:20:42 rapid strep group A, throat 2017 018 oajao In-Office Order, Internal Use Only DO Not Attach Compendium DO Not Attach Compendium, Do Not Delete/merge, [id number] 8 13:14:38 rapid flu (A+B) 2017 018 [email or web address] In-Office Order, Internal Use Only DO Not Attach Compendium DO Not Attach Compendium, Do Not Delete/merge, [id number] 8 13:14:38 HIV 1+2 AB + HIV 1 p24 Ag, qualitat maria victoria immunoas say, serum 2017 018 [facility], [address], [place], [address], 8 12:19:50 hemoglob in S (hbs), presence , blood 2017 018 [facility], [address], [place], [address], 8 12:19:58 CT + NG + TV, DNA, urine/sw ab 2017 018 [facility], [address], [place], [address], 8 11:29:17 rapid strep group A, throat 2017 018 LUDA In-Office Order, Internal Use Only DO Not Attach Compendium DO Not Attach Compendium, Do Not Delete/merge, [id number] 8 16:24:44 rapid flu (A+B) 2017 018 LUDA In-Office Order, Internal Use Only DO Not Attach Compendium DO Not Attach Compendium, Do Not Delete/merge, [id number] 8 16:24:44 Referral physical therapis t referral 2022 023 [facility], [address] [place], [address], 3 17:51:12 pain manageme nt referral 2022 023 [facility] Chey Ruiz MD, [address], [place], [address], 3 17:51:14 pain manageme nt referral 2022 023 billie Ruiz MD, [address], [place], [address], 3 17:51:13 Procedures None recorded . Surgeries None recorded . Imaging XR, lumbosac ral spine, 2 or 3 view [address] ([facility]), [address] [place], [address], 3 14:40:22 XR, chest, 2 view - Persiste nt cough 2017 018 [facility] ([facility]), [address] [place], [address], 8 16:05:19 Medication Orders Ortho Tri-Cycl en (28) 0.18 mg(7)/0. 215mg(7) /0.25 mg(7)-0. 035 mg tablet 2017 018 [id number], [address], [place], [id number], 3 14:11:32 Debrox 6.5 % ear drops 2017 018 [facility] #[id number], [address], [place], [id number], 8 11:33:28 azithrom ycin 250 mg tablet 2017 018 [facility] #[id number], [address], [place], [id number], 8 11:33:12 Tessalon Perles 100 mg capsule 2017 018 [facility] #[id number], [address], [place], [id number], 8 11:33:18 Patient TargetsNo targets recorded. Patient Instructions Encounter Date Encounter Id Patient Instructions Last Modified By Organization Details Last Modified Time 09/18/2018 [id number] sore throat: car e instructions oajao Not available 09/18/2018 16:01:59 upper respirator y infection (cold): care instructions oajao Not available 09/18/2018 16:20:50 Conservative management She should be able to return to work 09/22/2018 OTC meds Fluids oajao Not available 09/18/2018 16:30:21 The results were discussed, there is no role for antibiotics, this appears viral oajao Not available 09/18/2018 16:30:07 09/23/2018 [id number] sore throat: car e instructions oajao Not [...] discussed oajao Not available 09/23/2018 13:54:21 04/25/2023 [id number] pulmonary function test* dmilesma Not available 11/15/2023 [...] DO Not Attach Compendium, Do Not Delete/merge, [id number] 10/17/2018 12:08:40 09/18/20 18 09/18/2018 rapid flu (A+B) Flu A negati ve Not Available In-Office Order Internal Use Only DO Not Attach Compendium DO Not Attach Compendium, Do Not Delete/merge, [id number] 09/18/2018 16:09:25 09/18/20 18 09/18/2018 rapid flu (A+B) Flu B negati ve Not Available In-Office Order Internal Use Only DO Not Attach Compendium DO Not Attach Compendium, Do Not Delete/merge, [id number] 09/18/2018 16:09:25 09/18/20 18 09/18/2018 rapid strep group A, throa t Strep negati ve Not Available In-Office Order Internal Use Only DO Not Attach Compendium DO Not Attach Compendium, Do Not Delete/merge, [id number] 09/18/2018 15:58:23 09/22/20 18 09/23/2018 CBC w/ auto diff WBC 7.8 x10e3 /uL 3.4-10 .8 Not Available [facility] ([facility]) [address] [place], [address], 09/23/2018 13:11:42 09/22/20 18 09/23/2018 CBC w/ auto diff RBC 5.57 x10e6 /uL 3.77-5 .28 above high normal Not Available [facility] ([facility]) [address] [place], [address], 09/23/2018 13:11:42 09/22/20 18 09/23/2018 CBC w/ auto diff hemoglobin 12.4 g/dL 11.1-1 5.9 Not Available [facility] ([facility]) [address] [place], [address], 09/23/2018 13:11:42 09/22/20 18 09/23/2018 CBC w/ auto diff hematocrit 39.5 % 34.0-4 6.6 Not Available [facility] ([facility]) [address] [place], [address], 09/23/2018 13:11:42 09/22/20 18 09/23/2018 CBC w/ auto diff MCV 71 fL 79-97 below low normal Not Available [facility] ([facility]) [address] [place], [address], 09/23/2018 13:11:42 09/22/20 18 09/23/2018 CBC w/ auto diff MCH 22.3 pg 26.6-3 3.0 below low normal Not Available [facility] ([facility]) [address] [place], [address], 09/23/2018 13:11:42 09/22/20 18 09/23/2018 CBC w/ auto diff MCHC 31.4 g/dL 31.5-3 5.7 below low normal Not Available [facility] ([facility]) [address] [place], [address], 09/23/2018 13:11:42 09/22/20 18 09/23/2018 CBC w/ auto diff RDW 15.6 % 12.3-1 5.4 above high normal Not Available [facility] ([facility]) [address] [place], [address], 09/23/2018 13:11:42 09/22/20 18 09/23/2018 CBC w/ auto diff platelets 298 x10e3 /uL 150-37 9 Not Available [facility] ([facility]) [address] [place] [address], [address], 09/23/2018 13:11:42 09/22/20 18 09/23/2018 CBC w/ auto diff neutrophils 70 % not estab. Not Available [facility] ([facility]) [address] [facility], [place], [address], 09/23/2018 13:11:42 09/22/20 18 09/23/2018 CBC w/ auto diff lymphs 24 % not estab. Not Available [facility] ([facility]) [address] [facility], [place], [address], 09/23/2018 13:11:42 09/22/20 18 09/23/2018 CBC w/ auto diff monocytes 6 % not estab. Not Available [facility] ([facility]) [address] [facility], [place], [address], 09/23/2018 13:11:42 09/22/20 18 09/23/2018 CBC w/ auto diff eos 0 % not estab. Not Available [facility] ([facility]) [address] [place], [address], 09/23/2018 13:11:42 09/22/20 18 09/23/2018 CBC w/ auto diff basos 0 % not estab. Not Available [facility] ([facility]) [address] [place], [address], 09/23/2018 13:11:42 09/22/20 18 09/23/2018 CBC w/ auto diff immature cells FURNACE TAPPER Not Available [facility] ([facility]) [address] [place], [address], 09/23/2018 13:11:42 09/22/20 18 09/23/2018 CBC w/ auto diff neutrophils (absolute) 5.4 x10e3 /uL 1.4-7. 0 Not Available [facility] ([facility]) [address] [place], [address], 09/23/2018 13:11:42 09/22/20 18 09/23/2018 CBC w/ auto diff lymphs (absolute) 1.9 x10e3 /uL 0.7-3. 1 Not Available [facility] ([facility]) [address] [place], [address], 09/23/2018 13:11:42 09/22/20 18 09/23/2018 CBC w/ auto diff monocytes(ab solute) 0.5 x10e3 /uL 0.1-0. 9 Not Available [facility] ([facility]) [address] [facility], [place], [address], 09/23/2018 13:11:42 09/22/20 18 09/23/2018 CBC w/ auto diff eos (absolute) 0.0 x10e3 /uL 0.0-0. 4 Not Available [facility] ([facility]) [address] [facility], [place], [address], 09/23/2018 13:11:42 09/22/20 18 09/23/2018 CBC w/ auto diff baso (absolute) 0.0 x10e3 /uL 0.0-0. 2 Not Available [facility] ([facility]) [address] [facility], [place], [address], 09/23/2018 13:11:42 09/22/20 18 09/23/2018 CBC w/ auto diff immature granulocytes 0 % not estab. Not Available [facility] ([facility]) [address] [facility], [place], [address], 09/23/2018 13:11:42 09/22/20 18 09/23/2018 CBC w/ auto diff immature grans (abs) 0.0 x10e3 /uL 0.0-0. 1 Not Available [facility] ([facility]) [address] [place], [address], 09/23/2018 13:11:42 09/22/20 18 09/23/2018 CBC w/ auto diff NRBC FURNACE TAPPER Not Available [facility] ([facility]) [address] [place] [address], [address], 09/23/2018 13:11:42 09/22/20 18 09/23/2018 CBC w/ auto diff hematology comments: FURNACE TAPPER Not Available [facility] ([facility]) [address] [facility] [place], [address], 09/23/2018 13:11:42 09/22/20 18 09/23/2018 CMP, serum or plasm a glucose 96 mg/dL 65-99 Not Available [facility] ([facility]) [address] [facility] [place], [address], 09/23/2018 13:11:43 09/22/20 18 09/23/2018 CMP, serum or plasm a BUN 12 mg/dL 6-20 Not Available [facility] ([facility]) [address] [facility] [place], [address], 09/23/2018 13:11:43 09/22/20 18 09/23/2018 CMP, serum or plasm a creatinine 0.77 mg/dL 0.57-1 .00 Not Available [facility] ([facility]) [address] [place], [address], 09/23/2018 13:11:43 09/22/20 18 09/23/2018 CMP, serum or plasm a eGFR if nonafricn AM 106 mL/mi n/1.7 3 >59 Not Available [facility] ([facility]) [address] [facility] [place], [address], 09/23/2018 13:11:43 09/22/20 18 09/23/2018 CMP, serum or plasm a eGFR if africn AM 122 mL/mi n/1.7 3 >59 Not Available [facility] ([facility]) [address] [facility] [place], [address], 09/23/2018 13:11:43 09/22/20 18 09/23/2018 CMP, serum or plasm a BUN/creatini ne ratio 16 9-23 Not Available [facility] ([facility]) [address] [place] [address] [place], [address], 09/23/2018 13:11:43 09/22/20 18 09/23/2018 CMP, serum or plasm a sodium 142 mmol/ L 134-14 4 Not Available [facility] ([facility]) [address] [place], [address], 09/23/2018 13:11:43 09/22/20 18 09/23/2018 CMP, serum or plasm a potassium 4.5 mmol/ L 3.5-5. 2 Not Available [facility] ([facility]) [address] [place] [address], [address], 09/23/2018 13:11:43 09/22/20 18 09/23/2018 CMP, serum or plasm a chloride 102 mmol/ L 96-106 Not Available [facility] ([facility]) [address] [place] [address], [address], 09/23/2018 13:11:43 09/22/20 18 09/23/2018 CMP, serum or plasm a carbon dioxide, total 20 mmol/ L 20-29 Not Available [facility] ([facility]) [address] [place] [address], [address], 09/23/2018 13:11:43 09/22/20 18 09/23/2018 CMP, serum or plasm a calcium 9.6 mg/dL 8.7-10 .2 Not Available [facility] ([facility]) [address] [place] [address], [address], 09/23/2018 13:11:43 09/22/20 18 09/23/2018 CMP, serum or plasm a protein, total 7.6 g/dL 6.0-8. 5 Not Available [facility] ([facility]) [address] [place] [address], [address], 09/23/2018 13:11:43 09/22/20 18 09/23/2018 CMP, serum or plasm a albumin 4.6 g/dL 3.5-5. 5 Not Available [facility] ([facility]) [address] [place], [address], 09/23/2018 13:11:43 09/22/20 18 09/23/2018 CMP, serum or plasm a globulin, total 3.0 g/dL 1.5-4. 5 Not Available [facility] ([facility]) [address] [place], [address], 09/23/2018 13:11:43 09/22/20 18 09/23/2018 CMP, serum or plasm a A/G ratio 1.5 1.2-2. 2 Not Available [facility] ([facility]) [address] [place], [address], 09/23/2018 13:11:43 09/22/20 18 09/23/2018 CMP, serum or plasm a bilirubin, total 0.4 mg/dL 0.0-1. 2 Not Available [facility] ([facility]) [address] [place], [address], 09/23/2018 13:11:43 09/22/20 18 09/23/2018 CMP, serum or plasm a alkaline phosphatase 69 IU/L 39-117 Not Available [facility] ([facility]) [address] [place] [address], [address], 09/23/2018 13:11:43 09/22/20 18 09/23/2018 CMP, serum or plasm a AST (SGOT) 18 IU/L 0-40 Not Available [facility] ([facility]) [address] [place] [address], [address], 09/23/2018 13:11:43 09/22/20 18 09/23/2018 CMP, serum or plasm a ALT (SGPT) 11 IU/L 0-32 Not Available [facility] ([facility]) [address] [place] [address], [address], 09/23/2018 13:11:43 09/22/20 18 09/23/2018 urina lysis , compl ete specific gravity TNP Test Not Perfo rmed. Patie nt was unabl e to void at the time of colle ction . The follo wing test( s) were not perfo rmed: Not Available [facility] ([facility]) [address] [place], [address], 09/23/2018 13:11:44 09/22/20 18 09/23/2018 urina lysis , compl ete pH TNP Test not perfo rmed Not Available [facility] ([facility]) [address] [place], [address], 09/23/2018 13:11:44 09/22/20 18 09/23/2018 urina lysis , compl ete urine-color FURNACE TAPPER Not Available [facility] ([facility]) [address] [place], [address], 09/23/2018 13:11:44 09/22/20 18 09/23/2018 urina lysis , compl ete appearance FURNACE TAPPER Not Available [facility] ([facility]) [address] [place], [address], 09/23/2018 13:11:44 09/22/20 18 09/23/2018 urina lysis , compl ete WBC esterase FURNACE TAPPER Not Available [facility] ([facility]) [address] [facility], [place], [address], 09/23/2018 13:11:44 09/22/20 18 09/23/2018 urina lysis , compl ete protein TNP Test not perfo rmed Not Available [facility] ([facility]) [address] [place], [address], 09/23/2018 13:11:44 09/22/20 18 09/23/2018 urina lysis , compl ete glucose TNP Test not perfo rmed Not Available [facility] ([facility]) [address] [place], [address], 09/23/2018 13:11:44 09/22/20 18 09/23/2018 urina lysis , compl ete ketones TNP Test not perfo rmed Not Available [facility] ([facility]) [address] [facility], [place], [address], 09/23/2018 13:11:44 09/22/20 18 09/23/2018 urina lysis , compl ete occult blood FURNACE TAPPER Not Available [facility] ([facility]) [address] [facility], [place], [address], 09/23/2018 13:11:44 09/22/20 18 09/23/2018 urina lysis , compl ete bilirubin FURNACE TAPPER Not Available [facility] ([facility]) [address] [place], [address], 09/23/2018 13:11:44 09/22/20 18 09/23/2018 urina lysis , compl ete urobilinogen ,semi-qn FURNACE TAPPER Not Available [facility] ([facility]) [address] [facility], [place], [address], 09/23/2018 13:11:44 09/22/20 18 09/23/2018 urina lysis , compl ete nitrite, urine FURNACE TAPPER Not Available [facility] ([facility]) [address] [place], [address], 09/23/2018 13:11:44 09/22/20 18 09/23/2018 urina lysis , compl ete microscopic examination FURNACE TAPPER Not Available [facility] ([facility]) [address] [facility], [place], [address], 09/23/2018 13:11:44 09/22/20 18 09/23/2018 lipid panel , serum cholesterol, total 185 mg/dL 100-19 9 Not Available [facility] ([facility]) [address] [place] [address], [address], 09/23/2018 13:11:44 09/22/20 18 09/23/2018 lipid panel , serum triglyceride s 44 mg/dL 0-149 Not Available [facility] ([facility]) [address] [facility], [place], [address], 09/23/2018 13:11:44 09/22/20 18 09/23/2018 lipid panel , serum HDL cholesterol 78 mg/dL >39 Not Available [facility] ([facility]) [address] [place], [address], 09/23/2018 13:11:44 09/22/20 18 09/23/2018 lipid panel , serum VLDL cholesterol vu 9 mg/dL 5-40 Not Available [facility] ([facility]) [address] [place], [address], 09/23/2018 13:11:44 09/22/20 18 09/23/2018 lipid panel , serum LDL cholesterol calc 98 mg/dL 0-99 Not Available [facility] ([facility]) [address] [place], [address], 09/23/2018 13:11:44 09/22/20 18 09/23/2018 lipid panel , serum comment: FURNACE TAPPER Not Available [facility] ([facility]) [address] [facility], [place], [address], 09/23/2018 13:11:44 09/22/20 18 09/23/2018 iron + total iron- rylie ng capac ity (TIBC ), serum iron bind.cap.(TI BC) 372 ug/dL 250-45 0 Not Available [facility] ([facility]) [address] [place], [address], 09/23/2018 13:11:45 09/22/20 18 09/23/2018 iron + total iron- rylie ng capac ity (TIBC ), serum UIBC 296 ug/dL 131-42 5 Not Available [facility] ([facility]) [address] [place] [address], [address], 09/23/2018 13:11:45 09/22/20 18 09/23/2018 iron + total iron- rylie ng capac ity (TIBC ), serum iron 76 ug/dL 27-159 Not Available [facility] ([facility]) [address] [place], [address], 09/23/2018 13:11:45 09/22/20 18 09/23/2018 iron + total iron- rylie ng capac ity (TIBC ), serum iron saturation 20 % 15-55 Not Available [facility] ([facility]) [address] [place], [address], 09/23/2018 13:11:45 09/22/20 18 09/23/2018 minor tin, serum or plasm a ferritin, serum 29 NG/mL 15-150 Not Available [facility] ([facility]) [address] [place] [address], [address], 09/23/2018 13:11:45 09/22/20 18 09/23/2018 unabl e to void unable to void Commen t Patie nt unabl e to void. Urine to be colle cted at a later date. Not Available [facility] ([facility]) [address] [place], [address], 09/23/2018 13:11:46 09/22/20 18 09/23/[address] probl em request problem TNP Test Not Perfo rmed. Patie nt was unabl e to void at the time of colle ction . The follo wing test( s) were not perfo rmed: TEST: 61532 [id number] Urina lysis , Routi ne Not Available [facility] ([facility]) [address] [place], [address], 09/23/2018 13:11:47 09/23/20 18 09/23/2018 rapid flu (A+B) Flu A negati ve Not Available In-Office Order Internal Use Only DO Not Attach Compendium DO Not Attach Compendium, Do Not Delete/merge, [id number] 09/23/2018 13:11:48 09/23/20 18 09/23/2018 rapid flu (A+B) Flu B negati ve Not Available In-Office Order Internal Use Only DO Not Attach Compendium DO Not Attach Compendium, Do Not Delete/merge, [id number] 09/23/2018 13:11:48 09/23/20 18 09/23/2018 rapid strep group A, throa t Strep negati ve Not Available In-Office Order Internal Use Only DO Not Attach Compendium DO Not Attach Compendium, Do Not Delete/merge, [id number] 09/23/2018 13:11:29 10/17/20 18 10/21/2018 bacte rial vagin osis + vagin itis panel , vagin al trich vag by ALENA Negati ve negati ve Not Available [facility] ([facility]) [address] [place], [address], 10/23/2018 06:07:14 10/17/20 18 10/21/2018 bacte rial vagin osis + vagin itis panel , vagin al chlamydia trachomatis, ALENA Negati ve negati ve Not Available [facility] ([facility]) [address] [place] [address], [address], 10/23/2018 06:07:14 10/17/20 18 10/21/2018 bacte rial vagin osis + vagin itis panel , vagin al neisseria gonorrhoeae, ALENA Negati ve negati ve Not Available [facility] ([facility]) [address] [place], [address], 10/23/2018 06:07:14 10/17/20 18 10/23/2018 bacte rial vagin osis + vagin itis panel , vagin al atopobium vaginae Low - 0 score Not Available [facility] ([facility]) [address] [place], [address], 10/23/2018 06:07:14 10/17/20 18 10/23/2018 bacte rial vagin osis + vagin itis panel , vagin al bvab 2 Low - 0 score Not Available [facility] ([facility]) [address] [place], [address], 10/23/2018 06:07:14 10/17/20 18 10/23/2018 bacte rial [...] e chalo cteri stics deter mined by [employer]. It has not been clear ed or appro blanca by the Food and Drug Admin istra tion. The FDA has deter mined that such clear ance or appro francisco is not neces chaya. Not Available [facility] ([facility]) [address] [facility], [place], [address], 10/23/2018 06:07:14 10/17/20 18 10/23/2018 bacte rial vagin osis + vagin itis panel , vagin al denny albicans, ALENA Negati ve negati ve Not Available [facility] ([facility]) [address] [place], [address], 10/23/2018 06:07:14 10/17/20 18 10/23/2018 bacte rial vagin osis + vagin itis panel , vagin al denny glabrata, ALENA Negati ve negati ve This test was devel oped and its perfo rmanc e chalo cteri stics deter mined by [facility]. It has not been clear ed or appro blanca by the Food and Drug Admin istra tion. The FDA has deter mined that such clear ance or appro francisco is not neces chaya. Not Available [facility] ([facility]) [address] [facility], [place], [address], 10/23/2018 06:07:14 10/17/20 18 10/22/2018 HSV (1+2) DNA, qual, PCR, unspe cifie d speci men hsv 1 ALENA Negati ve negati ve Not Available [facility] ([facility]) [address] [facility], [place], [address], 10/23/2018 06:07:15 10/17/20 18 10/22/2018 HSV (1+2) DNA, qual, PCR, unspe cifie d speci men hsv 2 ALENA Negati ve negati ve Not Available [facility] ([facility]) [address] [facility], [place], [address], 10/23/2018 06:07:15 09/03/20 18 09/03/2018 XR, shoul selam No observ ation record ed. [facility] [address] [place], [address], 09/18/2018 16:17:04 Result Notes None recorded. Problems Name Problem SNOMED Code Status Onset Date Resolution Date Notes Provider Name and Address Organization Details Recorded Time Infection by Trichomon as 68051450 Active Juan Diego Tuttle MD Attn: Accounting, [address] [place], [address], [facility] 5 01:46:48 Influenza vaccinati on declined [id number] Completed 201710/17/2018 Sebastián Otero [place] null, [place] - [facility] 8 11:36:49 History of iron deficienc y 653661171 Active 2017 Ellie Barrett MD Attn: Accounting, [address] [place], [address], [place] [facility] 8 11:01:21 Chlamydia l cerviciti s 485565865 Active 2017 Catalina Posada MD Attn: Accounting, [address] [facility], [place], [address], [facility] 8 15:12:20 Bacterial vaginosis 679755872 Active 2017 Catalina Posada MD Attn: Accounting, [address] [facility], [place], [address], [facility] 8 15:12:26 Problem Notes None recorded. Procedures Surgical History Date Name Laterality Status Provider Name and Address Organization Details Recorded Time 8 Date of Last Pap Smear completed Mulu Álvarez MA [facility] 08/06/2018 12:38:01 Caesarean Section completed Mulu Álvarez MA [facility] 12/11/2017 15:38:58 Imaging Results None recorded. Procedure [...] completed Not Available Not Available Not Available [employer] Manager a 150 mg/mL intramuscul ar suspension Inject 150 mL every 3 months by intramusc ular route. 10/03/ 2018 11/19 /2018 completed [facility] [facility] [id number] Not Available Not Available Not [...] completed Not Available Not Available Not Available Depo-Grain Manager a 04/25 completed Not Available Not Available Not Available DayQuil Allergy 12-HR 10/17 completed Not Available Not Available Not Available Vitals Date Recorded Body height Body mass index (BMI) Body weight Oxygen saturation Oxygen saturation in Arterial blood by Pulse oximetry Heart rate Systolic And Diastolic Provider Name and Address Organization Details Last Updated DateTime 3 160.02 cm 21.8 kg/m2 52883.1 4 g 98 % 98 % 113 [...] % 99 % 76 /min 20.4 kg/m2 21174.1 2 g 16 /min 114/64 mm[Hg] Sebastián Otero [place] - [facility] 8 16:03:08 Date Recorded Body height Provider Name an d Address Organization Details Last Updated DateTime 09/18/2018 160.02 cm Wendy Luna MA [facility] 018 15:57:32 Date Recorded Body height Body mass index (BMI) Body weight Systolic And Diastolic Provider Name and Address Organization Details Last Updated DateTime 09/22/2018 160.02 cm 19.7 kg/m2 78443.9 g 90/66 mm[Hg] Juvenal Vail MA [facility] 09/22/2018 11:13:54 Date Recorded Body height Body mass index (BMI) Body weight Body temperature Heart rate Oxygen saturation Oxygen saturation in Arterial blood by Pulse oximetry Systolic And Diastolic Provider Name and Address Organization Details Last Updated DateTime 8 160.02 cm 19.8 kg/m2 25588.3 5 g 97.8 [degF] 70 /min 99 % 99 % 92/70 mm[Hg] Wendy Luna MA [facility] 8 12:42:34 Date Recorded Body height Body mass index (BMI) Body weight Systolic And Diastolic Provider Name and Address Organization Details Last Updated DateTime 10/17/2018 160.02 cm 20 kg/m2 60642.94 g 100/68 mm[Hg] Sebastián Otero MA [facility] 10/17/2018 11:59:51 Social History Question Answer Notes LastModified by Organizat ion Details LastModified Time Tobacco Smoking Status Never Smoker Mulu Álvarez MA [facility], [facility] 12/11/2017 15:35:54 Do You Have An Advance [...] None Information not available 12/11/2017 Education 12 [email or web address] Information not available 12/11/2017 Live Alone Or [...] 12/11/2017 Are you able to care for yourself independently? 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 Occasional Information not available 12/11/2017 Mental Status Question Answer Note LastModified by Organization D etails LastModified Time Do you feel stressed (tense, restless, nervous, or anxious, or unable to sleep at night)? [id number] Information not available 04/25/2023 Family History Relationship Description Onset Age of this Age Resolved Age Notes LastModified by Organization Details LastModified Time Mother Cerebrovascu lar accident [email or web address] Not available 05/2018 15:34:43 Mother Disorder of thyroid gland Not available 2017 15:34:57 Mother Hypertensive disorder Not available 2017 15:35:17 Medical History Condition Response Other N High Blood Pressure N Breast Cancer N Kidney or Bladder Problems N Thyroid Problems N GI Problems N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
[2025-09-02 02:17] LABS: Add Urine Microscopic? YES; Appearance Urine Cloudy (Clear); Budding Yeast Urine Present /hpf; Glucose Urine UA Negative (Negative); Leukocyte Esterase Ur 1+ LEU/UL (Negative); Nitrate Urine Negative (Negative); Specific Grav Ur 1.038 (1.001-1.035)
[2025-09-02 03:30] VITALS: PULSE 85; RESP 17; O2SAT 100
[2025-09-02 03:42] VITALS: BP 120/94; PULSE 75; RESP 13; O2SAT 100
== END 2025-09-02 03:37 | disposition home or self-care (01) ==
PROVIDERS: Emergency Provider Student in an Organized Health Care Education/Training Program; PCP Internal Medicine
DX: S29.9XXA Unspecified injury of thorax, initial encounter (principal); R07.89 Other chest pain; R93.1 Abnormal findings on diagnostic imaging of heart and coronary circulation; V43.52XA Car driver injured in collision with other type car in traffic accident, initial encounter
CPT/HCPCS: 36415; 71260; 72129; 72132; 74177; 80053; 81001; 81025; 82948; 84484; 85025; 93005; 99284; A9270; Q9967